=== PATIENT | female | born 1995 | race Caucasian/White ===

== ENCOUNTER 2023-08-03 10:33 | Emergency (ER) | payer OTHER, SELFPAY ==
[2023-08-03 10:51] VITALS: BP 137/87; PULSE 92; RESP 18; TEMP 36.7; O2SAT 96; BMI 39.5
--- NOTE | 2023-08-03 11:08 | CT_ITS ---
The [address] [address] Patient Name: PETER SHAW MRN: [id number] date: 1995 Sex: F Assigned Patient Location: ER Current Patient Location: ER Accession/Order Number: [id number] Exam Date: 08/03/2023 11:45 Report Date: 08/03/2023 12:31 At the request of: SILVER GUEVARA Procedure: CT facial bones w con EXAM: CT facial bones w con HISTORY: facial abscess COMPARISON: None. TECHNIQUE: Axial postcontrast CT imaging of the facial bones was performed with coronal and sagittal reformats. This CT exam was performed using one or more of the following dose reduction techniques: Automated exposure control, adjustment of the MA and/or kV according to patient size, or use of iterative reconstruction technique. FINDINGS: Soft tissues: There is extensive right facial inflammatory stranding extending from the right infraorbital soft tissues inferiorly to the level of the superior anterior neck with associated reticulation of overlying fat and thickening of the platysma. There is extensive inflammation overlying the right premaxillary soft tissues with questionable small area of phlegmon versus abscess seen along the inferior aspect of the maxillary sinus and anterior aspect of the maxilla without overt drainable fluid collection seen. This measures approximately 1.4 x 0.4 x 1.5 cm (transverse, AP, craniocaudal). There is asymmetric thickening with inflammation involving the levator labii on the right. There is asymmetric mild inflammation along the posterior lateral aspect of the right maxillary sinus wall. Orbits: Globes intact. No evidence for retroseptal extension of inflammation. No fractures or masses. Sinuses: Moderate mucosal thickening of the right maxillary sinus. No overt air-fluid level. Midface/nasal cavity: No fractures or masses. Maxilla/mandible: Multifocal periapical lucencies are present with loss of overlying buccal alveolar cortex along the right maxillary first bicuspid, right maxillary central incisor and left maxillary first bicuspid. Multiple dental caries are present involving the mandibular and maxillary teeth area No fractures or destructive lesions. Additional comments: Presumed reactive adenopathy is present involving the visualized right greater than left submandibular nodes and jugulodigastric lymph nodes. CT/CT facial bones w con IMPRESSION: 1. Extensive right facial and upper neck cellulitis which is more than typically seen likely relating to odontogenic inflammation although there is questionable area of subtle developing phlegmon without overt drainable abscess seen involving the right premaxillary soft tissues with multiple dental caries and periapical lucencies noted some of which demonstrate loss of overlying buccal alveolar cortex. Alternatively this could relate to inflammation from right maxillary sinus disease with inflammation of the premaxillary soft tissues as well as soft tissues adjacent to the lateral wall of the maxilla is noted. Invasive fungal sinusitis is not excluded. Inflammation does extend to involve the right infraorbital soft tissues. Continued attention on follow-up for resolution is recommended. 2. Associated right greater than left reactive adenopathy. Electronically authenticated by: ISABELLA BURGER Date: 08/03/2023 12:31
[2023-08-03 11:31] LABS: Basophils Absolute Auto 0.1 10^3/uL (0.0-0.1); Basophils Percent Auto 0.4 % (0.2-2.0); Eosinophils Absolute Auto 0.1 10^3/uL (0.0-0.7); Eosinophils Percent Auto 0.9 % (0.9-7.0); Hematocrit 38.9 % (36.0-48.0); Hemoglobin 11.7 g/dL (12.0-16.0); Immature Granulocytes Abs Auto 0.06 10^3/uL (0.00-0.03); Immature Granulocytes Pct Auto 0.5 % (0.0-0.5); Lymphocytes Percent Auto 14.9 % (20.5-60.0); Mean Corpuscular HGB Conc 30.1 g/dL (29.9-35.2); Mean Corpuscular Hemoglobin 26.2 pg (26.7-34.0); Mean Corpuscular Volume 87.2 fL (81.0-99.0); Mean Platelet Volume 10.1 fL (9.5-13.5); Monocytes Absolute Auto 1.5 10^3/uL (0.3-0.8); Monocytes Percent Auto 11.1 % (1.7-12.0); Neutrophils Absolute Auto 9.6 10^3/uL (1.4-6.5); Neutrophils Percent Auto 72.2 % (43.0-75.0); Platelet Count 343 10^3/uL (150-450); Red Blood Count 4.46 10^6/uL (4.20-5.40); Red Cell Distribution Width 15.1 % (11.0-15.0); White Blood Count 13.3 10^3/uL (4.0-11.0)
[2023-08-03 11:42] LABS: Lactate/Lactic Acid 1.1 mmol/L (0.4-2.0)
[2023-08-03 11:52] LABS: Alanine Aminotransferase 20 U/L (14-59); Albumin Globulin Ratio 0.8; Albumin Level 3.4 g/dL (3.4-5.0); Alkaline Phosphatase 89 U/L (46-116); Anion Gap 13.5; Aspartate Amino Transferase 14 U/L (15-37); Bilirubin Total 0.4 mg/dL (0.2-1.0); Calcium 9.1 mg/dL (8.5-10.1); Carbon Dioxide 24.4 mmol/L (21.0-32.0); Chloride 103 mmol/L (98-107); Estimated GFR (African America >60 (>=60); Estimated GFR (Non-African Ame >60 (>=60); Globulin 4.1 g/dL; Glucose 93 mg/dL (74-106); Potassium 3.9 mmol/L (3.5-5.1); Sodium 137 mmol/L (136-145); Total Protein 7.5 g/dL (6.4-8.2)
[2023-08-03] MEDS: LACTATED RINGER'S SOLUTION 1,000 ML 999 ML IV (11:56)
[2023-08-03] MEDS: CLINDAMYCIN PHOSPHATE/D5W 900 MG/50 ML PIGGYBACK 100 MG IV (11:57)
[2023-08-03] MEDS: BENZOCAINE 30 ML, lidocaine HCL 15 ML MM (12:37)
[2023-08-03] MEDS: KETOROLAC TROMETHAMINE 30 MG/ML VIAL 15 MG IVP (12:38)
[2023-08-03] MEDS: ONDANSETRON PF 4 MG/2 ML VIAL IV (12:38)
[2023-08-03] MEDS: MORPHINE SULFATE 4 MG/ML VIAL IV (12:38)
--- NOTE | 2023-08-03 13:16 | ED.GENADUL1 ---
HPI - General Adult General Chief complaint: Dental/Oral Stated complaint: TOOTH PAIN Time Seen by Provider: 08/03/23 11:02 Source: patient Mode of arrival: walk-in Limitations: no limitations History of Present Illness HPI narrative: Patient is a 28-year-old female who is presenting to the Emergency Room with chief complaint of right facial swelling, acute on chronic dental pain to the right upper molar. Patient has been having acute on chronic dental pain for years. Mother is at bedside. Patient stated that her right upper mmolar started hurting yesterday and she has some mild swelling yesterday. Patient has significant more swelling to the right cheek today. Patient has no fever or chills. No nausea or vomiting. Patient says that she has no money to get into a dentist and has no dentist that will take her insurance. However patient is smoking 1 pack of cigarettes a day. Patient denies any type of trauma. Patient does have right-sided fullness, swelling and pain. Patient has no difficulty breathing, no airway compromise. Mild swelling to the right side of her neck. No other acute complaints. . All systems are negative except as noted/marked. All systems reviewed and otherwise negative. . Nurses note and vital signs reviewed and patient is not hypoxic. General: The patient appears All distress secondary to pain and swelling to the right side of her cheek/face. Patient is resting uncomfortably on cart. Patient is not toxic, lethargic, or listless. Patiient is slightly agitated with questions during HPI when discussing no dental follow-up, using insurance, going to any dental clinic in pain cast, smoking habits, and the need for follow-up with a dentist in the past several years because she keeps coming to the Emergency Room and placed on antibiotics which is not appropriatee as well. Skin: Warm, dry, no pallor noted. There is no rash noted. No petechiae, purpura. No redness to the right cheek, right side of her neck or to the right side of her face. Head: Normocephalic, atraumatic, Moderate amount of swelling to the right cheek Eye: Normal conjunctiva, no drainage, EOMI. PERRL Ears, Nose, Mouth, and Throat: oral mucosa is moist. Nares patent. Mouth without vesicles. ENT: The oropharynx is normal. No pharyngeal erythema, uvular edema, tonsillar exudates, asymmetry or trismus. Uvula is midline. Mouth is normal to inspection With the exception of a pain on percussion of the tooth Right upper molar and evidence of Moderate dental caries. There is Moderate evidence of Right facial asymmetry In no abscess formation. Floor of the mouth is soft. No tenderness in the submental or submandibular space. No tongue elevation or deviation. The patient has no evidence of periapical abscess, gingivitis, ANUG or other acute pathology. Airway is patent. Neck: The neck demonstrates normal range of motion. No meningeals signs are present. No stridor. No masses or lymphandenopathy noted. Cardiovascular: Regular Rate and Rhythm, no murmur, gallop, rub Respiratory: Patient is in no distress, no accessory muscle use, lungs are clear to auscultation, no wheezing, rales or rhonchi Back: non-tender, no CVA tenderness bilaterally to percussion. No CT LS midline pain GI: soft, no tenderness to palpation, no masses appreciated. No rebound, guarding, or rigidity noted. No flank pain bilateral, No distention Musculoskeletal: Patient has full range of motion of all of the extremities, no motor, sensory, or focal neurological deficits Neurological: A&O x3, normal speech Psychiatric: Cooperative Related Data Previous Rx's Medication Instructions Recorded amoxicillin-potassium clavulanate 1 tab PO BID 10 days #20 tabs 08/03/23 1,000 mg-62.5 mg tablet,ext.rel 12hr (Augmentin XR) ondansetron 4 mg disintegrating 4 mg PO Q4H PRN nausea and 08/03/23 tablet vomiting 3 days #6 tabs Allergies Allergy/AdvReac Type Severity Reaction Status Date / Time No Known Drug Allergies Allergy Verified 08/03/23 10:56 [facility] Social History Smoking status: Current every day smoker Exam Constitutional Vital Signs, click to edit/add: Last Vital Signs Temp 98.0 F 08/03/23 10:51 Pulse 92 H 08/03/23 10:51 Resp 18 08/03/23 10:51 BP 137/87 08/03/23 10:51 Pulse Ox 96 08/03/23 10:51 O2 Del Method Room Air 08/03/23 10:51 Course Vital Signs Vital signs: Vital Signs Temperature 98.0 F 08/03/23 10:51 Pulse Rate 92 H 08/03/23 10:51 Respiratory Rate 18 08/03/23 10:51 Blood Pressure 137/87 08/03/23 10:51 Pulse Oximetry 96 08/03/23 10:51 Oxygen Delivery Method Room Air 08/03/23 10:51 Temperature 98.0 F 08/03/23 10:51 Pulse Rate 92 H 08/03/23 10:51 Respiratory Rate 18 08/03/23 10:51 Blood Pressure 137/87 08/03/23 10:51 Pulse Oximetry 96 08/03/23 10:51 Oxygen Delivery Method Room Air 08/03/23 10:51 Medical Decision Making MDM Narrative Medical decision making narrative: CT report shows moderate amount of soft tissue swelling to the right side of her face that early cellulitis. No gas formation. No signs of any large abscess. No airway compromise. A lot of education was done with patient at bedside along with her mother, and patient's mother agrees with my education. Patient understands that she can come up with money to follow up with a dentist, aspirin or other dental clinics, especially when she smoking 1 pack of cigarettes a day. Patient understands and was given a dental clinic referral sheet. Patient was also educated that she can follow up with dental schools in [place] for possibly free or affordable care from dental school training programs. Patient was placed on Augmentin but did not want to take the prescription for Augmentin because she has a prescription for clindamycin waiting for her at the pharmacy. Patient says that she's been on Augmentin clindamycin multiple times for dental issues. Patient was educated that she must follow-up with a dentist, I think continuing to be on multiple antibiotics and not seenn a dentist is doing her an extreme disservice ensure bodies building up time seen aantibiotics in the future will not help her at all. Patient is aware of this. Patient was given Toradol, morphine and Zofran for pain in the Emergency Room along with IV fluids. Mother drove home. Patient was given a dose of IV antibiotics. Patient understands that she is doing herself a huge disservice and not following up with a dentist for definitive treatment. No questions at discharge. Lab Data Labs: Lab Results 08/03/23 Range/Units 11:02 WBC 13.3 H (4.0-11.0) 10^3/uL RBC 4.46 (4.20-5.40) 10^6/uL Hgb 11.7 L (12.0-16.0) g/dL Hct 38.9 (36.0-48.0) % MCV 87.2 (81.0-99.0) fL MCH 26.2 L (26.7-34.0) pg MCHC 30.1 (29.9-35.2) g/dL RDW 15.1 H (11.0-15.0) % Plt Count 343 (150-450) 10^3/uL MPV 10.1 (9.5-13.5) fL Neut % (Auto) 72.2 (43.0-75.0) % Lymph % (Auto) 14.9 L (20.5-60.0) % [place] % (Auto) 11.1 (1.7-12.0) % Eos % (Auto) 0.9 (0.9-7.0) % Baso % (Auto) 0.4 (0.2-2.0) % Neut # (Auto) 9.6 H (1.4-6.5) 10^3/uL Lymph # (Auto) 2.0 (1.2-3.8) 10^3/uL [place] # (Auto) 1.5 H (0.3-0.8) 10^3/uL Eos # (Auto) 0.1 (0.0-0.7) 10^3/uL Baso # (Auto) 0.1 (0.0-0.1) 10^3/uL Abs Immat Gran (auto) 0.06 H (0.00-0.03) 10^3/uL Imm/Tot Granulo (auto) 0.5 (0.0-0.5) % Sodium 137 (136-145) mmol/L Potassium 3.9 (3.5-5.1) mmol/L Chloride 103 (98-107) mmol/L Carbon Dioxide 24.4 (21.0-32.0) mmol/L Anion Gap 13.5 BUN 6.0 L (7.0-18.0) mg/dL Creatinine 0.60 (0.55-1.02) mg/dL Est GFR ( Amer) >60 (>=60) Est GFR (Non-Af Amer) >60 (>=60) BUN/Creatinine Ratio 10.0 Glucose 93 (74-106) mg/dL Lactate 1.1 (0.4-2.0) mmol/L Calcium 9.1 (8.5-10.1) mg/dL Total Bilirubin 0.4 (0.2-1.0) mg/dL AST 14 L (15-37) U/L ALT 20 (14-59) U/L Alkaline Phosphatase 89 (46-116) U/L Total Protein 7.5 (6.4-8.2) g/dL Albumin 3.4 (3.4-5.0) g/dL Globulin 4.1 g/dL Albumin/Globulin Ratio 0.8 Discharge Plan Discharge Chief Complaint: Dental/Oral Clinical Impression: Atypical face pain, Dental caries, Toothache Patient Disposition: Home, Self-Care Time of Disposition Decision: 13:06 Condition: Fair Prescriptions / Home Meds: New ondansetron 4 mg tablet,disintegrating 4 mg PO Q4H PRN (Reason: nausea and vomiting) 3 Days Qty: 6 0RF amoxicillin-pot clavulanate [Augmentin XR] 1,000-62.5 mg tablet extended release 12 hr 1 tab PO BID 10 Days Qty: 20 0RF Instructions: Atypical Facial Pain (ED) Additional Instructions: The dental schools in [place] are all tied to dental clinics, including [facility], [facility] in [facility]. Dental clinic list has been provided for use as well. Nothing will improve until you see a dentist. Tobacco abuse education was given 2 as well. A copy of your CT report has been given to you, finish antibiotics and follow and establish a PCP as well. Use ice 20 minutes on, 20 minutes off, do not use heat. Stand Alone Forms: Portal Instructions Referrals: Physician,Non-Staff, MD [Primary Care Provider] - 1 week Discharge Date/Time: 08/03/23 13:37
== END 2023-08-03 13:37 | disposition home or self-care (01) ==
PROVIDERS: Emergency Provider Emergency Medicine
DX: K08.89 Other specified disorders of teeth and supporting structures (principal); K02.9 Dental caries, unspecified; G50.1 Atypical facial pain; F17.210 Nicotine dependence, cigarettes, uncomplicated
CPT/HCPCS: 36415; 70487; 80053; 83605; 85025; 87040; 96365; 96375; 99284; J0736; J1885; J2270; J2405; Q9967

== ENCOUNTER 2023-09-09 08:17 | Emergency (ER) | payer OTHER, SELFPAY ==
--- NOTE | 2023-09-09 08:25 | ED.GENADUL1 ---
HPI - General Adult General Chief complaint: Back Pain/Injury Stated complaint: BACK PAIN Time Seen by Provider: 09/09/23 08:24 History of Present Illness HPI narrative: Patient is a 28-year-old female who is presenting to the ER with chief complaint. Patient stated that she bent down to flower picker her child on Tuesday, 2 days ago, and patient has been having right lower back pain with radiation of pain to the right buttocks and down her right lateral thigh, evidence of sciatica. Patient has not had pain in the right side before, patient has pain in the left side. Patient has had an MRI in the past, stating that she has herniated disc, degeneration and loss of water weight from L4-L5. Patient has had spinal injections at [facility] with pain management in the past that did help. Patient has a PCP in [place]. Patient has no abdominal pain, nausea or vomiting. Patient is having dysuria, she has been having that for 4 to 5 days. During HPI, patient said while I am here, can I get STD check patient says that she was with a boy who cheated on her last week. Patient has no vaginal bleeding, odor, or discharge. Patient states that she has had her fallopian tubes removed, states that she is not . Patient's friend is at bedside. Patient told nurse Monik VILLELA and myself that patient just wants injection of Toradol, does not want to give a urine sample, does not want any other testing at this time because she needs to leave to go flower picker her kids. All systems are negative except as noted/marked. All systems reviewed and otherwise negative. Nurses note and vital signs reviewed and patient is not hypoxic. General: The patient appears well and in no apparent distress. Patient is resting comfortably on cart. Patient is not toxic, lethargic, or listless Skin: Warm, dry, no pallor noted. There is no rash noted. No petechiae, purpura. Head: Normocephalic, atraumatic Eye: Normal conjunctiva, no drainage, EOMI. PERRL Ears, Nose, Mouth, and Throat: oral mucosa is moist. Nares patent. Mouth without vesicles. Cardiovascular: Regular Rate and Rhythm, no murmur, gallop, rub Respiratory: Patient is in no distress, no accessory muscle use, lungs are clear to auscultation, no wheezing, rales or rhonchi Back: Patient has moderate tenderness to palpation to the right paralumbar soft tissue, no midline spinous process or transverse process tenderness to palpation over lumbar sacral spine, non-tender, no CVA tenderness bilaterally to percussion. No CT LS midline pain. Patient does have right paralumbar tenderness palpation from approximately L2-L5, no rash. GI: Obese, no tenderness to palpation, no masses appreciated. No rebound, guarding, or rigidity noted. No distention Musculoskeletal: Patient has full range of motion of all of the extremities, no motor, sensory, or focal neurological deficits. No motor or sensory deficits to bilateral lower extremities Neurological: A&O x4, normal speech Psychiatric: Cooperative Related Data Previous Rx's Medication Instructions Recorded amoxicillin-potassium clavulanate 1 tab PO BID 10 days #20 tabs 08/03/23 1,000 mg-62.5 mg tablet,ext.rel 12hr (Augmentin XR) ondansetron 4 mg disintegrating 4 mg PO Q4H PRN nausea and 08/03/23 tablet vomiting 3 days #6 tabs Allergies Allergy/AdvReac Type Severity Reaction Status Date / Time No Known Drug Allergies Allergy Verified 08/03/23 10:56 PFSH PFS Social History Smoking status: Current every day smoker Exam Constitutional Vital Signs, click to edit/add: Last Vital Signs Temp 98.1 F 09/09/23 08:27 Pulse 100 H 09/09/23 08:27 Resp 18 09/09/23 08:27 BP 148/96 H 09/09/23 08:27 Pulse Ox 98 09/09/23 08:27 O2 Del Method Room Air 09/09/23 08:27 Course Vital Signs Vital signs: Vital Signs Temperature 98.1 F 09/09/23 08:27 Pulse Rate 100 H 09/09/23 08:27 Respiratory Rate 18 09/09/23 08:27 Blood Pressure 148/96 H 09/09/23 08:27 Pulse Oximetry 98 09/09/23 08:27 Oxygen Delivery Method Room Air 09/09/23 08:27 Temperature 98.1 F 09/09/23 08:27 Pulse Rate 100 H 09/09/23 08:27 Respiratory Rate 18 09/09/23 08:27 Blood Pressure 148/96 H 09/09/23 08:27 Pulse Oximetry 98 09/09/23 08:27 Oxygen Delivery Method Room Air 09/09/23 08:27 Medical Decision Making MDM Narrative Medical decision making narrative: Patient does not wants injection with Toradol. Patient does not want to give a urine sample or urine culture. Patient only wants injection of Toradol, patient states she has been on steroids in the past, she is only had pain for 2 days, no acute indication for steroids. Patient has a PCP appointment next week with her PCP in [place]. Patient has to go flower picker her kids, she would like to be discharged and no additional testing. No signs of saddle anesthesia or cauda equina. Patient was educated on using ice and not heat. Patient is to follow-up with her pain management that she has seen in the past with [facility], she was also given information on physical therapy and pain management from the [facility] as well. Discharge Plan Discharge Chief Complaint: Back Pain/Injury Clinical Impression: Lumbar radiculopathy, Sciatica Patient Disposition: Home, Self-Care Condition: Fair Prescriptions / Home Meds: No Action ondansetron 4 mg tablet,disintegrating 4 mg PO Q4H PRN (Reason: nausea and vomiting) 3 Days Qty: 6 0RF amoxicillin-pot clavulanate [Augmentin XR] 1,000-62.5 mg tablet extended release 12 hr 1 tab PO BID 10 Days Qty: 20 0RF Instructions: Sciatica (ED), Lumbar Radiculopathy (ED), Piriformis Syndrome (ED), Lower Back Exercises (ED) Additional Instructions: Start using ice 20 minutes on, 20 minutes off. Start using sciatica and piriformis stretching exercises Do not use heat Follow-up with PCP Pain management and physical therapy services from the [facility] have been given to you as well. Stand Alone Forms: Portal Instructions Referrals: Physician,Non-Staff, MD [Primary Care Provider] - 1 week
[2023-09-09 08:27] VITALS: BP 148/96; PULSE 100; RESP 18; TEMP 36.7; O2SAT 98; BMI 49.2
--- OUTSIDE RECORDS SUMMARY | 2023-09-09 08:27 | XMS_ITS | CCD ---
Author Name Unknown Address [id number] [place] [address] Organization [facility] Care Team Providers Care Desk Maker Name Role Phone Tai NAVARRO, Sr Misbah Hernandez Primary Care Provider GAMA CALLE Attending Unavailable GAMA CALLE Admitting [facility] RODRIGUEZ Primary Care Unavailable Opal Cuevas CNP Attending Unavailable Brad OROPEZA, Christian Figueredo Referring Unava ilable Russell , [facility] Jesu Capps DO, Anand Antony Attending Unavaila codey Russell , [facility] Jesu Brannon PA-C, Ambar Saini Attending Unavailgina Salinas MD, Christian Figueredo [facility] Jesu serrano Russell , [facility] Jesu Cantu MD, Meeta Attending Unavailable MIGNON OVIEDO Attending Unavailable GIGI MALDONADO Primary Care Unavailable JEOL, GIGI Wallace Primary Care Unavailable JOELGIGI PARR Primary Care Unavailable ROSSANA GALLAGHER Attending Unavailable JOELGIGI PARR Primary Care Unavailable JOEL, GIGI Wallace Primary Care Unavailable GIGI MALDONADO Referring Unavailable Sebastian GARCIA~[id number] PREET Attending Unavailable GIGI MALDONADO Primary Care Unavailable IVÁN BOLTON Attending Unavailable GIGI MALDONADO Primary Care Unavailable JOEL, GIGI Wallace Primary Care Unavailable MISBAH GAMBLE SR Primary Care Unavailable RAMONA VIDALES Unavailable RAMONA VIDALES Attending Unavailable MARY CRAWLEY Attending Unavailable GIGI MALDONADO Primary Care Unavailable Allergies Allergy Classification Reported Allergen(s) Allergy Type Date of Onset Reaction(s) Facility (1 source) Cinnamon Preparation; Translations: [CINNAMON] Drug Allergy 04-23-2023 [facility] Medications Current Medications Medication Drug Class(es) Dates Sig (Normalized) Sig (Original) gabapentin 600 mg oral tablet (4 sources) Anti-epileptic Agent gabapentin (NEURONTIN) 600 MG tablet Take 800 mg by mouth 3 times daily. 0 Active Completed/Discontinued Medications Medication Drug Class(es) Dates Sig (Normalized) Sig (Original) acetaminophen 325 mg oral tablet (1 source) Start: 01-05-2021 End: 01-05-2021 acetaminophen (TYLENOL) tablet 650 mg dexamethasone phosphate 10 mg/ml injectable solution (1 source) Corticosteroid Start: 05-04-2022 End: 05-04-2022 dexamethasone (DECADRON) injection 10 mg 1 ml ketorolac tromethamine 30 mg/ml cartridge (1 source) Nonsteroidal Anti-inflammatory Drug, Cyclooxygenase Inhibitor Start: 05-04-2022 End: 05-04-2022 ketorolac (TORADOL) injection 30 mg penicillin v potassium 250 mg oral tablet (5 sources) Start: 01-05-2021 End: 01-05-2021 penicillin v potassium (VEETID) tablet 500 mg Start: 01-05-2021 take 1 tablet by david th four times daily penicillin v potassium (VEETID) 500 MG tablet Take 1 tablet by mouth 4 times daily 40 tablet 0 01/05/2021 Active Problems Active Problems Problem Classification Problem Date Documented Date Episodic/Chronic Administrative/social admission (1 source) Persons encountering health services in other specified circumstances; Translations: [Persons encountering health services in other specified circumstances] Onset: 05-10-2023 Episodic Diseases of mouth; excluding dental (1 source) Sialoadenitis, unspecified; Translations: [Sialoadenitis, unspecified] Onset: 06-27-2023 Episodic Disorders of teeth and jaw (9 sources) Dental abscess; Translations: [Periapical abscess without sinus] Onset: 06-08-2023 Episodic Headache; including migraine (1 source) Headache; including migraine; Translations: [Headache, unspecified] Onset: 06-26-2023 Other screening for suspected conditions (not mental disorders or infectious disease) (1 source) Encounter for screening for lipoid disorders; Translations: [Encounter for screening for lipoid disorders] Onset: 05-10-2023 Episodic Other skin disorders (1 source) Facial swelling Onset: 08-02-2023 Episodic Residual codes; unclassified (4 sources) Procedure and treatment not carried out due to patient leaving prior to being seen by health care provider; Translations: [PROC AND TX NOT CARRIED OUT PT LEAVE] Onset: 10-08-2022 Episodic Spondylosis; intervertebral disc disorders; other back problems (1 source) Degeneration of lumbar intervertebral disc; Translations: [Other intervertebral disc degeneration, lumbar region] Chronic Past or Other Problems Problem Classification Problem Date Documented Da te Episodic/Chronic Spondylosis; intervertebral disc disorders; other back problems (3 sources) Chronic low back pain; Translations: [Acute exacerbation of chronic low back pain] Onset: 02-17-2023 Episodic Results Test Name Value Interpretation Reference Range Facility CBC with Diffon 06-27-2023 Abs. Basophil 0.06 k/uL Normal 0.00-0.20 [facility] Comment on above: Performed By: #### C LIZZETTE, CP #### [facility] [address] [place] [address] [address] [place] [id number] [employer] Specialist: Jarod Bernardo MD Abs.Imm.Granulocyte 0.03 k/uL Normal 0.00-0.30 [facility] Comment on above: Performed By: #### C LIZZETTE, CP #### [address] [place] [id number] [employer]ist: Jarod Bernardo MD Abs.Neutrophil (Seg) 6.24 k/uL Normal 1.50-8.10 [facility] Comment on above: Performed By: #### C DP, CP #### [address] [place], [facility] [employer]ist: Jarod Bernardo MD Basophils/100 WBC (Bld) 1 % Normal 0-2 [facility] Comment on above: Performed By: #### C DP, CP #### [address] [place] [id number] [employer]ist: Jarod Bernardo MD Eosinophils (Bld) [#/Vol] 0.10 10*3/uL Normal 0.00-0.44 [facility] Comment on above: Performed By: #### C DP, CP #### [facility] [address] [place], [facility] [employer]ist: Jarod Bernardo MD Eosinophils/100 WBC (Bld) 1 % Normal 1-4 [facility] Comment on above: Performed By: #### C DP, CP #### [address] [place], [facility] [employer]ist: Jarod Bernardo MD Erythrocyte distribution width (RBC) [Ratio] 15.7 % High 11.8-14.4 [facility] Comment on above: Performed By: #### C DP, CP #### [address] [place] [id number] [employer]ist: Jarod Bernardo MD Hematocrit (Bld) [Volume fraction] 38.2 % Normal 36.3-47.1 [facility] Comment on above: Performed By: #### C DP, CP #### [address] [place], [facility] [employer]ist: Jarod Bernardo MD Hemoglobin (Bld) [Mass/Vol] 11.8 g/dL Low 11.9-15.1 [facility] Comment on above: Performed By: #### C DP, CP #### [address] [place], [place] [address] [employer]ist: Jarod Bernardo MD Immature granulocytes/100 WBC (Bld) 0 % Normal 0 [facility] Comment on above: Performed By: #### C DP, CP #### [address] [place] [id number] [employer]ist: Jarod Bernardo MD Lymphocytes (Bld) [#/Vol] 1.20 10*3/uL Normal 1.10-3.70 [facility] Comment on above: Performed By: #### C DP, CP #### [address] [place] [address] [place], [place] [phone] [employer]ist: Jarod Bernardo MD Lymphocytes/100 WBC (Bld) 14 % Low 24-43 [facility] Comment on above: Performed By: #### C DP, CP #### [facility] [address] [place], [facility] [employer]ist: Jarod Bernardo MD MCH (RBC) [Entitic mass] 26.2 pg Normal 25.2-33.5 [facility] Comment on above: Performed By: #### C DP, CP #### [address] [place] [address] [employer]ist: Jarod Bernardo MD MCHC (RBC) [Mass/Vol] 30.9 g/dL Normal 28.4-34.8 [facility] Comment on above: Performed By: #### C DP, CP #### [address] [place], [facility] [employer]ist: Jarod Bernardo MD MCV (RBC) [Entitic vol] 84.9 fL Normal 82.6-102.9 [facility] Comment on above: Performed By: #### C DP, CP #### [address] [place], [facility] [employer] Specialist: Jarod Bernardo MD Monocytes (Bld) [#/Vol] 0.70 10*3/uL Normal 0.10-1.20 [facility] Comment on above: Performed By: #### C DP, CP #### [facility] [address] [place], [facility] [employer]ist: Jarod Bernardo MD Monocytes/100 WBC (Bld) 8 % Normal 3-12 [facility] Comment on above: Performed By: #### C DP, CP #### [facility] [address] [place], [facility] [employer]ist: Jarod Bernardo MD Neutrophil (Seg) 76 % High 36-[address] [facility] Comment on above: Performed By: #### C DP, CP #### [facility] [address] [place], [place] [phone] [employer]ist: Jarod Bernardo MD NRBC Automated 0.0 per 100 WBC Normal 0.0 [facility] Comment on above: Performed By: #### C DP, CP #### [address] [place] [address] [employer]ist: Jarod Bernardo MD Platelet mean volume (Bld) [Entitic vol] 9.7 fL Normal 8.1-13.5 [facility] Comment on above: Performed By: #### C DP, CP #### [address] [place], [place] [phone] [employer]ist: Jarod Bernardo MD Platelets (Bld) [#/Vol] 295 10*3/uL Normal 138-453 [facility] Comment on above: Performed By: #### C DP, CP #### [address] [place], [place] [phone] [employer]ist: Jarod Bernardo MD RBC (Bld) [#/Vol] 4.50 10*6/uL Normal 3.95-5.11 [facility] Comment on above: Performed By: #### C DP, CP #### [address] [place], [place] [phone] [employer]ist: Jarod Bernardo MD WBC (Bld) [#/Vol] 8.3 10*3/uL Normal 3.5-11.3 [facility] Comment on above: Performed By: #### C DP, CP #### [address] [place] [address] [employer]ist: Jarod Bernardo MD CT SOFT TISSUE NECK W CONTRA STojose 06-27-2023 CT SOFT TISSUE NECK W CONTRAST EXAMINATION: CT OF THE NECK SOFT TISSUE WITH CONTRAST 06/27/2023 TECHNIQUE: CT of the neck was performed with the administration of intravenous contrast. Multiplanar reformatted images are provided for review. Automated exposure control, iterative reconstruction, and/or weight based adjustment of the mA/kV was utilized to reduce the radiation dose to as low as reasonably achievable. COMPARISON: None. HISTORY: ORDERING SYSTEM PROVIDED HISTORY: dental asbcess R mandible, with sublingal edema, and induration submentally TECHNOLOGIST PROVIDED HISTORY: dental asbcess R mandible, with sublingal edema, and induration submentally Decision Support Exception - unselect if not a suspected or confirmed emergency medical condition->Emergency Medical Condition (MA) Initial evaluation. FINDINGS: PHARYNX/LARYNX: The visualized upper aerodigestive tract appears grossly symmetric. No discrete mass or abscess identified. The epiglottis appears normal. SALIVARY GLANDS/THYROID: Mild inflammatory changes are seen in the region of the right parotid tail. Otherwise, the parotid, submandibular and thyroid glands appear unremarkable. LYMPH NODES: Borderline prominent right submandibular lymph node is seen presumably reactive in nature. Otherwise, no evidence of cervical lymphadenopathy by size criteria. SOFT TISSUES: Inflammatory changes are seen superficial to the right mandibular body. This is possibly associated with a dental miguel a involving the right 1st mandibular molar tooth with a tiny lucency surrounding the root. There is inflammatory change extending into the right submandibular space and possibly the right sublingual space (axial series 2, image 54; coronal series 601, image 43). However, no discrete/drainable fluid collection is seen. BRAIN/ORBITS/SINUSES : The visualized portion of the intracranial contents appear unremarkable. The visualized portion of the orbits, paranasal sinuses and mastoid air cells demonstrate no acute abnormality. LUNG APICES/SUPERIOR MEDIASTINUM: No focal consolidation within the visualized lung apices. No acute abnormality within the visualized superior mediastinum. BONES: No aggressive appearing lytic or blastic bony lesion. IMPRESSION: 1. Inflammatory changes superficial to the right mandibular body possibly associated with a dental miguel a involving the right 1st mandibular molar tooth with the tiny lucency surrounding the root. 2. Inflammatory changes are seen extending along the right parotid tail and right submandibular space with possible extension into the right sublingual space. 3. No discrete/drainable fluid collection is seen. 4. Presumably reactive right submandibular lymph node. Interpreted by: Miah Boo MD Signed by: Miah Boo MD 06/27/23 Final result Normal [facility] Comp Metabolic Profon 2022 Albumin [Mass/Vol] 4.0 g/dL Normal 3.5-5.2 [facility] Comment on above: Performed By: #### C DP, CP #### [facility] [address] [place], [place] [id number] [employer]ist: Jarod Bernardo MD Albumin/Glob Ratio 1.6 Normal 1.0-2.5 [facility] Comment on above: Performed By: #### C DP, CP #### [address] [place], [place] [phone] [employer]ist: Jarod Bernardo MD Alkaline Phos 93 U/L Normal 35-104 [facility] Comment on above: Performed By: #### C DP, CP #### [facility] [address] [place] [address] [place] [address] [employer]ist: Jarod Bernardo MD ALT [Catalytic activity/Vol] 23 U/L Normal 5-33 [facility] Comment on above: Performed By: #### C DP, CP #### [address] [place], [place] [phone] [employer]ist: Jarod Bernardo MD Anion gap [Moles/Vol] 14 mmol/L Normal 9-17 [facility] Comment on above: Performed By: #### C DP, CP #### [facility] [address] [place] [address] Dr. [place], [place] [phone] [employer]ist: Jarod Bernardo MD AST [Catalytic activity/Vol] 20 U/L Normal <32 [facility] Comment on above: Performed By: #### C DP, CP #### [facility] [address] [place], [place] [phone] [employer]ist: aJrod Bernardo MD Bilirubin [Mass/Vol] 0.3 mg/dL Normal 0.3-1.2 [facility] Comment on above: Performed By: #### C DP, CP #### [facility] [address] [place], [place] 9373783 [employer]ist: Jarod Bernardo MD BUN/CRE Ratio 15 Normal 9-20 [facility] Comment on above: Performed By: #### C DP, CP #### [facility] [address] [place], [place] 5036183 [employer]ist: Jarod Bernardo MD Calcium [Mass/Vol] 8.9 mg/dL Normal 8.6-10.4 [facility] Comment on above: Performed By: #### C DP, CP #### [facility] [address] [place], [place] [phone] [employer]ist: Jarod Bernardo MD Chloride [Moles/Vol] 102 mmol/L Normal 98-107 [facility] Comment on above: Performed By: #### C DP, CP #### [facility] [address] [place], [place] [address]1783 [employer]ist: Jarod Bernardo MD CO2 [Moles/Vol] 21 mmol/L Normal 20-31 [facility] Comment on above: Performed By: #### C DP, CP #### [facility] [address] [place] [address] [employer]ist: Jarod Bernardo MD Creatinine [Mass/Vol] 0.6 mg/dL Normal 0.5-0.9 [facility] Comment on above: Performed By: #### C DP, CP #### [facility] [address] [place] [address] [employer]ist: Jarod Bernardo MD GFR/1.73 sq M.predicted among non-blacks MDRD (S/P/Bld) [Vol rate/Area] mL/min/{1.73_m2} Normal >60 [facility] Comment on above: Result Comment: These results are not intended for use in patients <18 years of age. eGFR results are calculated without a race factor using the 2020 CKD-EPI equation. Careful clinical correlation is recommended, particularly when comparing to results calculated using previous equations. The CKD-EPI equation is less accurate in patients with extremes of muscle mass, extra-renal metabolism of creatine, excessive creatine ingestion, or following therapy that affects renal tubular secretion. Performed By: #### C DP, CP #### [facility] [address] [place] [address] Dr[place], [place] [phone] [employer]ist: Jarod Bernardo MD Glucose [Mass/Vol] 107 mg/dL High 70-99 [facility] Comment on above: Performed By: #### C DP, CP #### [address] [place], [place] [phone] [employer]ist: Jarod Bernardo MD Potassium [Moles/Vol] 3.6 mmol/L Low 3.7-5.3 [facility] Comment on above: Performed By: #### C DP, CP #### [address] [place], [place] [phone] [employer]ist: Jarod Bernardo MD Protein [Mass/Vol] 6.5 g/dL Normal 6.4-8.3 [facility] Comment on above: Performed By: #### C DP, CP #### [address] [place], [place] [phone] [employer]ist: Jarod Bernardo MD Sodium [Moles/Vol] 137 mmol/L Normal 135-144 [facility] Comment on above: Performed By: #### C DP, CP #### [facility] [address] [place] [address] [place] [address] [employer]ist: Jarod Bernardo MD Urea nitrogen [Mass/Vol] 9 mg/dL Normal 6-20 [facility] Comment on above: Performed By: #### C DP, CP #### [facility] [address] [place] [address] Dr[place], [place] [phone] [employer]ist: Jarod Bernardo MD CBC with Diffon 05-10-2023 Abs. Basophil 0.04 k/uL Normal 0.00-0.20 [facility] Comment on above: Performed By: #### C DP, CMPF #### [facility] [address] [place] [address] Dr[place], [place] [phone] [employer]ist: Jarod Bernardo MD Abs.Imm.Granulocyte 0.06 k/uL Normal 0.00-0.30 [facility] Comment on above: Performed By: #### C DP, CMPF #### [address] [place], [place] [phone] [employer]ist: Jarod Bernardo MD Abs.Neutrophil (Seg) 5.10 k/uL Normal 1.50-8.10 [facility] Comment on above: Performed By: #### C DP, CMPF #### [facility] [address] [place] [address] [place] [address] [employer]ist: Jarod Bernardo MD Basophils/100 WBC (Bld) 1 % Normal 0-2 [facility] Comment on above: Performed By: #### C DP, CMPF #### [address] [place] [address] [employer]ist: Jarod Bernardo MD Eosinophils (Bld) [#/Vol] 0.12 10*3/uL Normal 0.00-0.44 [facility] Comment on above: Performed By: #### C DP, CMPF #### [facility] [address] [place] [address] [place] [address] [employer]ist: Jarod Bernardo MD Eosinophils/100 WBC (Bld) 2 % Normal 1-4 [facility] Comment on above: Performed By: #### C DP, CMPF #### [facility] [address] [place] [address] [place] [address] [employer]ist: Jarod Bernardo MD Erythrocyte distribution width (RBC) [Ratio] 15.4 % High 11.8-14.4 [facility] Comment on above: Performed By: #### C DP, CMPF #### [facility] [address] [place], [place] [phone] [employer]ist: Jarod Bernardo MD Hematocrit (Bld) [Volume fraction] 37.3 % Normal 36.3-47.1 [facility] Comment on above: Performed By: #### C DP, CMPF #### [facility] [address] [place], [place] [phone] [employer] Specialist: Jarod Brenardo MD Hemoglobin (Bld) [Mass/Vol] 11.3 g/dL Low 11.9-15.1 [facility] Comment on above: Performed By: #### C DP, CMPF #### [address] [place] [address] [employer] Specialist: Jarod Bernardo MD Immature granulocytes/100 WBC (Bld) 1 % High 0 [facility] Comment on above: Performed By: #### C DP, CMPF #### [address] [place], [facility] [employer] Specialist: Jarod Bernardo MD Lymphocytes (Bld) [#/Vol] 2.00 10*3/uL Normal 1.10-3.70 [facility] Comment on above: Performed By: #### C DP, CMPF #### [facility] [address] [place] [address] Dr[place], [facility] [employer] Specialist: Jarod Bernardo MD Lymphocytes/100 WBC (Bld) 25 % Normal 24-43 [facility] Comment on above: Performed By: #### C DP, CMPF #### [facility] [address] [place] [address] [employer] Specialist: Jarod Bernardo MD MCH (RBC) [Entitic mass] 26.3 pg Normal 25.2-33.5 [facility] Comment on above: Performed By: #### C DP, CMPF #### [facility] [address] [place], [place] [phone] [employer] Specialist: Jarod Bernardo MD MCHC (RBC) [Mass/Vol] 30.3 g/dL Normal 28.4-34.8 [facility] Comment on above: Performed By: #### C DP, CMPF #### [facility] [address] [place], [facility] [employer] Specialist: Jarod Bernardo MD MCV (RBC) [Entitic vol] 86.9 fL Normal 82.6-102.9 [facility] Comment on above: Performed By: #### C DP, CMPF #### [address] [place] [id number] [employer] Specialist: Jarod Bernardo MD Monocytes (Bld) [#/Vol] 0.55 10*3/uL Normal 0.10-1.20 [facility] Comment on above: Performed By: #### C DP, CMPF #### [address] [place], [facility] [employer] Specialist: Jarod Bernardo MD Monocytes/100 WBC (Bld) 7 % Normal 3-12 [facility] Comment on above: Performed By: #### C DP, CMPF #### [address] [place], [place] [address] [employer] Specialist: Jardo Bernardo MD Neutrophil (Seg) 64 % Normal 36-[address] [facility] Comment on above: Performed By: #### C DP, CMPF #### [facility] [address] [place] [id number] [employer]ist: Jarod Bernardo MD NRBC Automated 0.0 per 100 WBC Normal 0.0 [facility] Comment on above: Performed By: #### C DP, CMPF #### [facility] [address] [place], [facility] [employer] Specialist: Jarod Bernardo MD Platelet mean volume (Bld) [Entitic vol] 9.3 fL Normal 8.1-13.5 [facility] Comment on above: Performed By: #### C DP, CMPF #### [facility] [address] [place] [address] [employer]ist: Jarod Bernardo MD Platelets (Bld) [#/Vol] 395 10*3/uL Normal 138-453 [facility] Comment on above: Performed By: #### C DP, CMPF #### [facility] [address] [place] [address] [employer] Specialist: Jarod Bernardo MD RBC (Bld) [#/Vol] 4.29 10*6/uL Normal 3.95-5.11 [facility] Comment on above: Performed By: #### C DP, CMPF #### [address] [place] [address] [employer] Specialist: Jarod Bernardo MD WBC (Bld) [#/Vol] 7.9 10*3/uL Normal 3.5-11.3 [facility] Comment on above: Performed By: #### C DP, CMPF #### [address] [place] [address] [employer] Specialist: Jarod Bernardo MD Comp Metabol,Fastingon 05-10 Albumin [Mass/Vol] 4.2 g/dL Normal 3.5-5.2 [facility] Comment on above: Performed By: #### C DP, CMPF #### [address] [place] [address] [employer]ist: Jarod Bernardo MD Albumin/Glob Ratio 1.4 Normal 1.0-2.5 [facility] Comment on above: Performed By: #### C DP, CMPF #### [address] [place] [address] [employer]ist: Jarod Bernardo MD Alkaline Phos 69 U/L Normal 35-104 [facility] Comment on above: Performed By: #### C DP, CMPF #### [facility] [address] [place] [address] [employer]ist: Jarod Bernardo MD ALT [Catalytic activity/Vol] 18 U/L Normal 5-33 [facility] Comment on above: Performed By: #### C DP, CMPF #### [facility] [address] [place], [place] [id number] [employer]ist: Jarod Bernardo MD Anion gap [Moles/Vol] 10 mmol/L Normal 9-17 [facility] Comment on above: Performed By: #### C DP, CMPF #### [facility] [address] [place], [place] [id number] [employer]ist: Jarod Bernardo MD AST [Catalytic activity/Vol] 16 U/L Normal <32 [facility] Comment on above: Performed By: #### C DP, CMPF #### [facility] [address] [place], [place] [id number] [employer]ist: Jarod Bernardo MD Bilirubin [Mass/Vol] 0.4 mg/dL Normal 0.3-1.2 [facility] Comment on above: Performed By: #### C DP, CMPF #### [facility] [address] [place], [place] [id number] [employer]ist: Jarod Bernardo MD BUN/CRE Ratio 16 Normal 9-20 [facility] Comment on above: Performed By: #### C DP, CMPF #### [facility] [address] [place] [address] [employer]ist: Jarod Bernardo MD Calcium [Mass/Vol] 9.0 mg/dL Normal 8.6-10.4 [facility] Comment on above: Performed By: #### C DP, CMPF #### [facility] [address] [place] [address] [employer]ist: Jarod Bernardo MD Chloride [Moles/Vol] 106 mmol/L Normal 98-107 [facility] Comment on above: Performed By: #### C DP, CMPF #### [facility] [address] [place] [address] [employer]ist: Jarod Bernardo MD CO2 [Moles/Vol] 23 mmol/L Normal 20-31 [facility] Comment on above: Performed By: #### C DP, CMPF #### [facility] [address] [place] [address] [employer]ist: Jarod Bernardo MD Creatinine [Mass/Vol] 0.5 mg/dL Normal 0.5-0.9 [facility] Comment on above: Performed By: #### C DP, CMPF #### [facility] [address] [place] [address] [employer]ist: Jarod Bernardo MD GFR/1.73 sq M.predicted among non-blacks MDRD (S/P/Bld) [Vol rate/Area] mL/min/{1.73_m2} Normal >60 [facility] Comment on above: Result Comment: These results are not intended for use in patients <18 years of age. eGFR results are calculated without a race factor using the 2020 CKD-EPI equation. Careful clinical correlation is recommended, particularly when comparing to results calculated using previous equations. The CKD-EPI equation is less accurate in patients with extremes of muscle mass, extra-renal metabolism of creatine, excessive creatine ingestion, or following therapy that affects renal tubular secretion. Performed By: #### C DP, CMPF #### [facility] [address] [place] [address] [employer]ist: Jarod Bernardo MD Glucose [Mass/Vol] 99 mg/dL Normal 70-99 [facility] Comment on above: Performed By: #### C DP, CMPF #### [facility] [address] [place], [place] [id number] [employer]ist: Jarod Bernardo MD Potassium [Moles/Vol] 4.1 mmol/L Normal 3.7-5.3 [facility] Comment on above: Performed By: #### C DP, CMPF #### [facility] [address] [place], [place] [id number] [employer]ist: Jarod Bernardo MD Protein [Mass/Vol] 7.2 g/dL Normal 6.4-8.3 [facility] Comment on above: Performed By: #### C DP, CMPF #### [facility] [address] [place], [place] [id number] [employer]ist: Jarod Bernardo MD Sodium [Moles/Vol] 139 mmol/L Normal 135-144 [facility] Comment on above: Performed By: #### C DP, CMPF #### [facility] [address] [place] [address] [address], [place] [id number] [employer]ist: Jarod Bernardo MD Urea nitrogen [Mass/Vol] 8 mg/dL Normal 6-20 [facility] Comment on above: Performed By: #### C DP, CMPF #### [facility] [address] [place] [address] [address], [place] [id number] [employer]ist: Jarod Bernardo MD Lipid Profileon 05-10-2023 Cholesterol [Mass/Vol] 225 mg/dL High 0-199 [facility] Comment on above: Result Comment: Cholesterol Guidelines: <200 Desirable 200-240 Borderline >240 Undesirable Performed By: #### L IPR #### [facility] [address] [place], [place] [id number] [employer]ist: Italo English MD Cholesterol in HDL [Mass/Vol] 56 mg/dL Normal >40 [facility] Comment on above: Result Comment: HDL Guidelines: <40 Undesirable 40-59 Borderline >59 Desirable Performed By: #### L IPR #### [place] [id number] [place] [address] [employer]ist: Italo English MD Cholesterol in LDL [Mass/Vol] 137 mg/dL High 0-100 [facility] Comment on above: Result Comment: LDL Guidelines: <100 Desirable 100-129 Near to/above Desirable 130-159 Borderline >159 Undesirable Direct (measured) LDL and calculated LDL are not interchangeable tests. Performed By: #### L IPR #### [address] [address] [employer]ist: Italo English MD Cholesterol in VLDL [Mass/Vol] 33 mg/dL Normal [facility] Comment on above: Performed By: #### L IPR #### [address] [address] [employer]ist: Italo English MD Cholesterol.total/Chol esterol in HDL [Mass ratio] 4.0 {ratio} Normal [facility] Comment on above: Performed By: #### L IPR #### [address] [address] [employer]ist: Italo English MD Triglyceride [Mass/Vol] 163 mg/dL High 0-149 [facility] Comment on above: Result Comment: Triglyceride Guidelines: <150 Desirable 150-199 Borderline 200-499 High >499 Very high Based on AHA Guidelines for fasting triglyceride, May 2012. Performed By: #### L IPR #### [address] [address] [employer]ist: Italo English MD .eGFRon 04-17-2023 GFR/1.73 sq M.predicted MDRD (S/P/Bld) [Vol rate/Area] mL/min/{1.73_m2} Normal >=60 [facility] Comment on above: Order Comment: Order added by Discern rule Result Comment: [facility] have implemented the eGFR calculation approach that does not have a coefficient for race and that conforms to the NKF-ASN Task Force Recommendations. Stages of Chronic Kidney Disease GFR Stage 3a Mild to moderate loss of kidney function 59 to 45 Stage 3b Moderate to severe loss of kidney function 44 to 33 Stage 4 Severe loss of kidney function 29 to 15 Stage 5 Kidney failure Less than 15 GFR calculated using the CKD-Epi Creatinine Equation (2020): eGFR = 142 X min(SCr/?, 1)? X max(SCr /?, 1)-1.200 X 0.9938Age X 1.012 [if female] Abbreviations/Units: eGFR (estimated glomerular filtration rate) = mL/min/1.73 m2 SCr (standardized serum creatinine) = mg/dL ? = 0.7 (females) or 0.9 (males) ? = -0.241 (females) or -0.302 (males) min = indicates the minimum of SCr/? or 1 max = indicates the maximum of SCr/? or 1 Age = years Performed By: #### . Automated Diff #### [address] [address] AMI Initon 04-17-2023 Initial Myoglobin 20.5 ng/mL Normal 14.3-65.8 [facility] Comment on above: Performed By: #### A MI1 ####[address] [address] Initial Troponin <0.03 Normal 0.00-0.03 [facility] Comment on above: Result Comment: An i ncreased Troponin-I value, in the absence of myocardial ischemia, may indicate other etiologies of cardiac damage. Performed By: #### A MI1 ####[address] [address] Basic Metabolic Profileon Creatinine [Mass/Vol] 0.75 mg/dL Normal 0.44-1.[address] [facility] Comment on above: Performed By: #### A MI2 #### [address] [address] Urea nitrogen [Mass/Vol] 7 mg/dL Low 8-26 [facility] Comment on above: Performed By: #### A MI2 #### [address] [address] Urea nitrogen/Creatinine [Mass ratio] 9.3 mg/mg Low 10.0-20.0 [facility] Comment on above: Performed By: #### A MI2 #### [address] [address] Anion gap [Moles/Vol] 12 mmol/L Normal 7-[address] [facility] Comment on above: Performed By: #### A MI2 #### [address] [address] Calcium [Mass/Vol] 9.4 mg/dL Normal 8.5-10.3 [facility] Comment on above: Performed By: #### A MI2 #### [address] [address] Chloride [Moles/Vol] 109 mmol/L Normal 98-110 [facility] Comment on above: Performed By: #### A MI2 #### [address] [address] CO2 [Moles/Vol] 21 mmol/L Low 22-32 [facility] Comment on above: Performed By: #### A MI2 #### [address] [address] Glucose [Mass/Vol] 106 mg/dL High 70-99 [facility] Comment on above: Performed By: #### A MI2 #### [address] [address] Potassium [Moles/Vol] 3.7 mmol/L Normal 3.4-4.[address] [facility] Comment on above: Performed By: #### A MI2 #### [address] [address] Sodium [Moles/Vol] 138 mmol/L Normal 133-142 [facility] Comment on above: Performed By: #### A MI2 #### [address] [address] CBC w/ Diffon 04-17-2023 Erythrocyte distribution width (RBC) [Ratio] 16.1 % High 11.6-14.8 [facility] Comment on above: Performed By: #### . Automated Diff #### [address] [address] Hematocrit (Bld) [Volume fraction] 39.7 % Normal 36.0-46.0 [facility] Comment on above: Performed By: #### . Automated Diff #### [place] [id number] Hemoglobin (Bld) [Mass/Vol] 13.0 g/dL Normal 12.0-16.0 [facility] Comment on above: Performed By: #### . Automated Diff #### [place] [id number] MCH (RBC) [Entitic mass] 26.9 pg Low 27.0-35.0 [facility] Comment on above: Performed By: #### . Automated Diff #### [place] [id number] MCHC 32.8 % Normal 31.0-37.0 [facility] Comment on above: Performed By: #### . Automated Diff #### [place] [id number] MCV (RBC) [Entitic vol] 82.3 fL Normal 80.0-100.0 [facility] Comment on above: Performed By: #### . Automated Diff #### [place] [id number] Platelet 357 x10*3/mcL Normal 150-450 [facility] Comment on above: Performed By: #### . Automated Diff #### [address] [address] Platelet mean volume (Bld) [Entitic vol] 8.2 fL Normal 6.7-10.6 [facility] Comment on above: Performed By: #### . Automated Diff #### [address] [address] RBC 4.83 x10*6/mcL Normal 3.80-5.20 [facility] Comment on above: Performed By: #### . Automated Diff #### [address] [place] [address] WBC 11.7 x10*3/mcL High 4.5-11.0 [facility] Comment on above: Performed By: #### . Automated Diff #### [address] [address] COV19 Rapidon 04-17-2023 LAB ONLY Result Called? No Normal [facility] Comment on above: Performed By: #### C [id number] #### [address] [address] Reason for Rapid Test COVID Exposure Normal [facility] Comment on above: Performed By: #### C [id number] #### [place] [id number] SARS-CoV-2 (COVID-19) RNA OLEGARIO+probe Ql (Unsp spec) Negative Normal Negative [facility] Comment on above: Result Comment: The 2019 novel coronavirus SARS-CoV-2 target nucleic acids are not detected. This test is for the detection of SARS-CoV-2 RNA. Positive results are indicative of active infection with SARS-CoV-2. Positive results do not rule out bacterial infection or co-infection with other viruses. Negative results should be treated as presumptive and, if inconsistent with clinical signs and symptoms or necessary for patient management, should be tested with an alternative molecular assay.Negative results do not preclude SARS-CoV-2 infection and should not be used as the sole basis for treatment or other patient management decisions. Clinical correlation with patient history and other diagnostic information is necessary to determine patient infection status. ADDITIONAL INFORMATION: Testing was performed using the ID NOW COVID-19 test by [employer], which has received Emergency Use Authorization (EUA) by the U.S. Food and Drug Administration. The [employer] ID NOW COVID-19 test performs best when patients are tested within the first 7 days of symptom onset. Results should be interpreted with caution for asymptomatic patients or those tested outside the 7 day target. Refer to CDC guidelines for further testing algorithms. Fact sheets for this Emergency Use Authorization (EUA) assay can be found at the following links: Fact Sheet for HealthCare Providers: https://www.fda.gov/media/909668/download Fact Sheet for Patients: https://www.[facility].gov/media/551815/download Performed By: #### C [id number] #### [address] [address] D-Dimeron 04-17-2023 D-Dimer 0.27 mg/L feu Normal 0.00-0.49 [facility] Comment on above: Result Comment: Resu lts of the D-Dimer test should always be interpreted in conjunction with the patient's medical history, clinical presentation, and other findings. Results <0.5 mg/L are considered NEGATIVE for VTE. Results >= 0.5 mg/L require further clinical evaluation. Levels of triglyceride up to 600 mg/dl do not interfere with this D-Dimer assay. Performed By: #### D GAYLA ####[address] [address] Diff Autoon 04-17-2023 Baso Absolute 0.1 x10*3/mcL Normal 0.0-0.2 [facility] Comment on above: Performed By: #### . Automated Diff #### [address] [address] Basophils/100 WBC (Bld) 1.0 % Normal 0.0-1.5 [facility] Comment on above: Performed By: #### . Automated Diff #### [address] [address] Eos Absolute 0.1 x10*3/mcL Normal 0.0-0.4 [facility] Comment on above: Performed By: #### . Automated Diff #### [address] [address] Eosinophils/100 WBC (Bld) 1.0 % Normal 0.0-5.4 [facility] Comment on above: Performed By: #### . Automated Diff #### [address] [address] Lymph Absolute 2.0 x10*3/mcL Normal 1.0-4.8 [facility] Comment on above: Performed By: #### . Automated Diff #### [address] [address] Lymphocytes/100 WBC (Bld) 17.5 % Low 27.2-40.8 [facility] Comment on above: Performed By: #### . Automated Diff #### [address] [address] [place] Absolute 0.9 x10*3/mcL Normal 0.1-1.1 [facility] Comment on above: Performed By: #### . Automated Diff #### [address] [address] Monocytes/100 WBC (Bld) 7.7 % Normal 3.7-11.9 [facility] Comment on above: Performed By: #### . Automated Diff #### [address] [address] Neutro Absolute 8.5 x10*3/mcL High 1.8-7.7 [facility] Comment on above: Performed By: #### . Automated Diff #### [address] [address] Neutro Auto 72.8 % High 47.2-70.8 [facility] Comment on above: Performed By: #### . Automated Diff #### [address] [address] ED Clinical Summaryon 2022 ED Clinical Summary [address] [id number] ED Clinical Summary Person [facility] Age[facility] 28 Years : 1995 Sex: Female PCP: Misbah Gamble DO Marital Status: Single Phone: Race: White Ethnicity: Not or Language: Citizen Of [place] Visit Reason: Cough; Shortness of breath; shortness of breath Acuity: 3 Enc Type: Emergency Med Service: Emergency Medicine Arrival: 04/17/2023 09:54:08 Discharge: 04/17/2023 13:11:00 LOS: 000 03:17 Checkin: 04/17/2023 09:54:08 Checkout: 04/17/2023 13:11:00 Dispo Type: Home or Self Care Address: [address] [place] [id number] Provider Notes: History of Present Illness Patient is a 28 years old female presented emergency with cough, shortness of breath,?dizzy,?also congested. ?Patient reports that she was doing well until last few days when she still having all the symptoms. ?Denies any fever. ?Reports that she is a smoker. ?Patient reports that she had?tubal ligation in the past. ?Denies any?history of COPD. ?Reports some asthma. ?Use albuterol. ?She reported that she ran out of her albuterol inhaler given that her PCP retired. Review of Systems As reviewed in the HPI. All other systems reviewed are negative or normal. Physical Exam CONSTITUTIONAL: [no apparent distress, well appearing] SKIN: [warm, dry, no jaundice, hives or petechiae] EYES: [pupils are equally round, extraocular movements intact without nystagmus, clear conjunctiva, non-icteric sclera] HENT: [normocephalic, atraumatic, moist mucus membranes, oropharynx clear without exudates] NECK: [Nontender and supple with no nuchal rigidity, no lymphadenopathy, full range of motion] PULMONARY: [Decreased bilateral air entry. ?No retractions. CARDIOVASCULAR: [regular rate, rhythm, normal S1 and S2. No appreciated murmurs. Strong radial pulses with intact distal perfusion] GASTROINTESTINAL: [soft, non-tender, non-distended, no palpable masses, no rebound or guarding] GENITOURINARY: [No costovertebral angle tenderness to palpation] LYMPHATICS: [no edema in lower extremities, no lymphadenopathy] MUSCULOSKELETAL: [Extremities are nontender to palpation and have no gross deformity, no edema, redness, or swelling] NEUROLOGIC: [alert and oriented x 3, GCS 15, normal mentation and speech. Moves all extremities x 4 without motor or sensory deficit, gait is stable without ataxia] PSYCHIATRIC: [normal mood and affect, thought process is clear and linear] Diagnosis: 1:Cough; 2:Smoker Problems No Problems Documented Smoking Status: Smoking Status 10 or more cigarettes (1/2 pack or more)/day in last 30 days Functional Status: Sensory Deficits: History of Falls: Mobility Assistance Prior to Admission: ADLs: Current Level of Assistance for Self-Care/Mobility: Cognitive Status: Allergies No Known Allergies Laboratory or Other Results This Visit (last charted value for your 04/17/2023 visit) Hematology 04/17/2023 11:49 AM WBC: 11.7 x10 RBC: 4.83 x10 Neutro Auto: 72.8 % -- Normal range between ( 47.2 and 70.8 ) Lymph Auto: 17.5 % -- Normal range between ( 27.2 and 40.8 ) [place] Auto: 7.7 % -- Normal range between ( 3.7 and 11.9 ) Eos Auto: 1.0 % -- Normal range between ( 0.0 and 5.4 ) Basophil Auto: 1.0 % -- Normal range between ( 0.0 and 1.5 ) Baso Absolute: 0.1 x10 MCV: 82.3 fL -- Normal range between ( 80.0 and 100.0 ) MCHC: 32.8 % -- Normal range between ( 31.0 and 37.0 ) Lymph Absolute: 2.0 x10 Hct: 39.7 % -- Normal range between ( 36.0 and 46.0 ) [place] Absolute: 0.9 x10 MCH: 26.9 pg -- Normal range between ( 27.0 and 35.0 ) Neutro Absolute: 8.5 x10 Hgb: 13.0 g/dL -- Normal range between ( 12.0 and 16.0 ) Mean Platelet Volume: 8.2 fL -- Normal range between ( 6.7 and 10.6 ) Platelet: 357 x10 Eos Absolute: 0.1 x10 RDW: 16.1 % -- Normal range between ( 11.6 and 14.8 ) Coagulation 04/17/2023 11:49 AM D-Dimer: 0.27 mg/L feu -- Normal range between ( 0.00 and 0.49 ) Chemistry 04/17/2023 11:49 AM Creatinine Lvl: 0.75 mg/dL -- Normal range between ( 0.44 and 1.03 ) BUN: 7 mg/dL -- Normal range between ( 8 and 26 ) Glucose Lvl: 106 mg/dL -- Normal range between ( 70 and 99 ) Potassium Lvl: 3.7 mmol/L -- Normal range between ( 3.4 and 4.8 ) Sodium Lvl: 138 mmol/L -- Normal range between ( 133 and 142 ) Calcium Lvl: 9.4 mg/dL -- Normal range between ( 8.5 and 10.3 ) Chloride: 109 mmol/L -- Normal range between ( 98 and 110 ) CO2: 21 mmol/L -- Normal range between ( 22 and 32 ) Anion Gap: 12 -- Normal range between ( 7 and 17 ) Estimated GFR: >60 mL/min/1.73m? BUN Crea Ratio: 9.3 -- Normal range between ( 10.0 and 20.0 ) Serum Preg: Negative Initial Troponin: <0.03 ng/mL -- Normal range between ( 0.00 and 0.03 ) Initial Myoglobin: 20.5 ng/mL -- Normal range between ( 14.3 and 65.8 ) (more content not included)... Normal [facility] ED Note-Physicianon 04-17-20 ED Note-Physician Chief Complaint pt states she can't breathe, has been coughing bright green mucus, dizziness. Pt is also congested Pt says she has asthma, but is out of her inhaler. History of Present Illness Patient is a 28 years old female presented emergency with cough, shortness of breath, dizzy, also congested. Patient reports that she was doing well until last few days when she still having all the symptoms. Denies any fever. Reports that she is a smoker. Patient reports that she had tubal ligation in the past. Denies any history of COPD. Reports some asthma. Use albuterol. She reported that she ran out of her albuterol inhaler given that her PCP retired. Review of Systems As reviewed in the HPI. All other systems reviewed are negative or normal. Physical Exam CONSTITUTIONAL: [no apparent distress, well appearing] SKIN: [warm, dry, no jaundice, hives or petechiae] EYES: [pupils are equally round, extraocular movements intact without nystagmus, clear conjunctiva, non-icteric sclera] HENT: [normocephalic, atraumatic, moist mucus membranes, oropharynx clear without exudates] NECK: [Nontender and supple with no nuchal rigidity, no lymphadenopathy, full range of motion] PULMONARY: [Decreased bilateral air entry. No retractions. CARDIOVASCULAR: [regular rate, rhythm, normal S1 and S2. No appreciated murmurs. Strong radial pulses with intact distal perfusion] GASTROINTESTINAL: [soft, non-tender, non-distended, no palpable masses, no rebound or guarding] GENITOURINARY: [No costovertebral angle tenderness to palpation] LYMPHATICS: [no edema in lower extremities, no lymphadenopathy] MUSCULOSKELETAL: [Extremities are nontender to palpation and have no gross deformity, no edema, redness, or swelling] NEUROLOGIC: [alert and oriented x 3, GCS 15, normal mentation and speech. Moves all extremities x 4 without motor or sensory deficit, gait is stable without ataxia] PSYCHIATRIC: [normal mood and affect, thought process is clear and linear] Vitals & Measurements T: 36.6 ?C (Oral) HR: 88 (Monitored) RR: 18 BP: 130/89 SpO2: 94% HT: 172 cm WT: 117 kg (Dosing) Additional Vitals No qualifying data available. Procedure No qualifying data available. ASA Documentation Medical Decision Making MEDICAL DECISION MAKING Number and Complexity of Problems Differential Diagnosis: _But not limited to bronchitis, pneumonia, PE, ACS, asthma exacerbation MDM Data External documents reviewed: _ My EKG interpretation: _ My CT interpretation: _ My X-ray interpretation: _ My Ultrasound interpretation: _ Decision rules/scores evaluated: _ Discussed with: _ Decision rules/scores evaluated: _ ? HEART Score: Not Completed ? PERC Rule: _ ? NEXUS C-spine Criteria: _ ? Grayling Ankle Rule: _ ? Grayling Knee Rule: _ ? Wells Criteria for DVT: _ ? Wells Criteria for PE: _ Discussed with: _ Treatment and Disposition ED Course: Patient is a 28 years old female presented emergency with the symptoms above. Patient lab work reviewed. D-dimer negative. EKG did not show STEMI. Patient other than that PE also negative. Patient's white blood cell count slightly elevated. Patient coughing yellowish sputum. X-ray negative for pneumonia. Patient is a smoker. We will start the patient on antibiotics and also steroids in addition to her albuterol inhaler. Decision was made given patient smoker and also coughing yellow sputum risk to develop pneumonia. Patient was also advised to call and follow-up with a primary care physician but she stated her primary care physician retired so I did give her information to establish care and call physician referral line. Return precautions discussed. Discharged home in stable condition to follow-up with a primary care physician in few days. Assessment/Plan 1. Cough Ordered: albuterol, 1 puffs, Inhale, q4hr, PRN, # 8 g, 0 Refill(s), Pharmacy: [facility] #[id number] azithromycin, 1 packets, Oral, As Indicated, as directed on package labeling, X 5 days, # 6 tabs, 0 Refill(s), 04/22/23 12:50:00 EDT, Pharmacy: [facility] #[id number] methylPREDNISolone, 125 mg, IV Push, Powder-Inj, Once, First Dose: 04/17/23 12:50:00 EDT, Stop Date: 04/17/23 12:50:00 EDT, STAT, Dispense From Location: [facility], 04/17/23 12:50:00 EDT predniSONE, 2 tabs, Oral, Daily, X 5 days, # 10 tabs, 0 Refill(s), 04/22/23 12:50:00 EDT, Pharmacy: [facility] #[id number] 2. Smoker Ordered: albuterol, 1 puffs, Inhale, q4hr, PRN, # 8 g, 0 Refill(s), Pharmacy: [facility] #[id number] azithromycin, 1 packets, Oral, As Indicated, as directed on package labeling, X 5 days, # 6 tabs, 0 Refill(s), 04/22/23 12:50:00 EDT, Pharmacy: [facility] #[id number] methylPREDNISolone, 125 mg, IV Push, Powder-Inj, Once, First Dose: 04/17/23 12:50:00 EDT, Stop Date: 04/17/23 12:50:00 EDT, STAT, Dispense From Location: [facility], 04/17/23 12:50:00 EDT predniSONE, 2 tabs, Oral, Daily, X 5 days, # 10 tabs, 0 Refill(s), 04/22/23 12:50:00 EDT, Pharmacy: [facility] #[id number] Orders: Discharge Patient EKG Refresh (more content not included)... Normal [facility] Flu A&B Ag Rapidon 3 Influenza A Ag Negative Normal Negative [facility] Comment on above: Performed By: #### C [id number] #### [address] [address] Influenza B Ag Negative Normal Negative [facility] Comment on above: Result Comment: The Alere BinaxNow Influenza A+B Card 2 detects both viable and non-viable influenza A and B. Test performance depends on the amount of virus (antigen) in the specimen and may or may not compare with cell culture results performed on the same specimen. A negative test result does not exclude the infection with influenza A and/or B. Therefore, the results obtained with the Alere BinaxNow Influenza A+B Test should be used in conjunction with clinical findings to make an accurate diagnosis. Additional testing is required to differentiate any specific influenza A+B subtypes or strains, in consultation with [facility] or local public health departments. Performed By: #### C [id number] #### [address] [address] Procalcitonin Levelon 2022 Procalcitonin Lvl <0.05 Normal <=0.49 [facility] Comment on above: Result Comment: < 0. 50 ng/mL: Low Risk of severe sepsis and/or septic shock. >2.00 ng/mL: High Risk of severe sepsis and/or septic shock. Concentrations under 0.5 ng/mL do not exclude local infections or systemic infections in their initial stages (e.g. under six hours from onset of illness). PCT concentrations between 0.50 and 2.00 ng/mL should be interpreted with consideration of the patient?s history. In this range, it is recommended to retest PCT within 6 to 24 hours. Performed By: #### . Automated Diff #### [address] [address] S Preg Qlon 04-17-2023 Serum Preg Negative Normal [facility] Comment on above: Result Comment: The hCG Combo Rapid Test has a sensitivity of 10 mIU/mL in serum and is capable of detecting as early as 1 day after the first missed menses. Performed By: #### . Automated Diff #### [place] [id number] XR Chest 1 Viewon 04-17-2023 XR Chest 1 View EXAM: XR Chest 1 View HISTORY: Cough, COMPARISON: 11/27/2022 TECHNIQUE: AP chest radiograph FINDINGS: Heart and mediastinum are midline. Lungs are clear. There is no mass or consolidation or pleural effusion IMPRESSION: No evidence of acute pulmonary disease. Final Dictated by: Rui Starr MD Dictated DT/TM: 04/17/2023 12:41 pm Signed by: Rui Starr MD Signed (Electronic Signature): 04/17/2023 12:43 pm (If Report Is Signed, Electronically Signed in Other Vendor System) Normal [facility] ED Clinical Summaryon 2022 ED Clinical Summary [address] [address] ED Clinical Summary Person Information Name: [facility] Age: 28 Years : 1995 Sex: Female PCP: Misbah Gamble DO Marital Status: Single Phone: Race: White Ethnicity: Not or Language: Citizen Of [place] Visit Reason: Back pain; Right hip pain Acuity: 4 Enc Type: Emergency Med Service: Emergency Medicine Arrival: 03/06/2023 14:17:39 Discharge: 03/06/2023 15:15:00 LOS: 000 00:58 Checkin: 03/06/2023 14:17:39 Checkout: 03/06/2023 15:15:00 Dispo Type: Home or Self Care Address: [facility] [address] [place] [id number] Provider Notes: Diagnosis: 1:Right lumbar radiculopathy Problems No Problems Documented Smoking Status: Smoking Status 10 or more cigarettes (1/2 pack or more)/day in last 30 days Functional Status: Sensory Deficits: History of Falls: Mobility Assistance Prior to Admission: ADLs: Current Level of Assistance for Self-Care/Mobility: Cognitive Status: Allergies No Known Allergies Laboratory or Other Results This Visit (last charted value for your 03/06/2023 visit) No Laboratory or Other Results This Visit Measurements: Height: Weight: 119 kg Blood Pressure: /81 mmHg BMI: Procedures No Procedures Documented Immunizations No Immunizations Documented This Visit Final Med List: Medications that have not changed Other Medications albuterol (Albuterol (Eqv-ProAir HFA) 90 mcg/inh inhalation aerosol) 2 Puffs Inhale (breathe in) every 6 hours as needed as needed for wheezing. Refills: 0. Last Dose: clonazePAM (KlonoPIN 1 mg oral tablet) Oral (given by mouth) As Indicated. Last Dose: guaifenesin-dextrome thorphan (Robitussin Cough + Chest Congestion DM 20 mg-200 mg/20 mL oral liquid) 20 Milliliter Oral (given by mouth) every 4 hours as needed as needed for cough. not to exceed 6 doses/day. Refills: 0. Last Dose: loratadine-pseudoeph edrine (Claritin-D 12 Hour oral tablet, extended release) 1 Tabs Oral (given by mouth) every 12 hours as needed as needed for congestion for 10 Days. Refills: 0. Last Dose: sertraline (Zoloft 50 mg oral tablet) Oral (given by mouth) every day. Last Dose: Other Medications albuterol (Albuterol (Eqv-ProAir HFA) 90 mcg/inh inhalation aerosol) 2 Puffs Inhale (breathe in) every 6 hours as needed as needed for wheezing. Refills: 0. clonazePAM (KlonoPIN 1 mg oral tablet) Oral (given by mouth) As Indicated. guaifenesin-dextrome thorphan (Robitussin Cough + Chest Congestion DM 20 mg-200 mg/20 mL oral liquid) 20 Milliliter Oral (given by mouth) every 4 hours as needed as needed for cough. not to exceed 6 doses/day. Refills: 0. loratadine-pseudoeph edrine (Claritin-D 12 Hour oral tablet, extended release) 1 Tabs Oral (given by mouth) every 12 hours as needed as needed for congestion for 10 Days. Refills: 0. sertraline (Zoloft 50 mg oral tablet) Oral (given by mouth) every day. Care Team Members: Attending Physician: Ambar Brannon PA-C Consulting Physician: Referring Physician: Provider Role Assigned Unassigned Ambar Brannon PA-C ED MidLevel 03/06/2023 14:23:05 Follow up: With: Address: When: Emergency Room , only if needed Comments: Return for any worsening symptoms, inability to ambulate, loss of bowel/bladder control, weakness or other concerns With: Address: When: [place] [phone] Business (1) Within 2 to 4 days Comments: Recheck today's symptoms Discharge Orders: Discharge Patient 03/06/23 15:02:00 EDT, Discharge to Home, Self Patient Education Information: Back Pain (Acute or Chronic); Sciatica; Back Pain (Acute or Chronic) [facility] Poison Help line: . [facility] Hotline: [place] Tobacco Quit Line: [place], [place]) [address]: [phone] [facility] ([place], [place]) [address]: [phone] [facility] [address] [facility]. [place], [place]: [phone] Normal [facility] ED Note-Physicianon 03-06-20 ED Note-Physician Chief Complaint Pt c/o back pain, My back is all screwed up, I need a shot of toradol History of Present Illness Patient presents to ED c/o acute on chronic back pain. Pain began around 1 week ago in right low back and radiates to right leg. Patient denies injury, bruising, swelling, decreased range of motion, abdominal pain, vomiting, dysuria, urinary/fecal incontinence, weakness and numbness. Symptoms are aggravated by movement, alleviated by nothing. Patient has had similar symptoms multiple times in the past, she has not taken any medication prior to arrival. She states when this pain had flared in the past, she usually receives a few injections here in ED as well as a one time Winterthur which greatly improves her pain. Review of Systems General: [Negative for fever, chills, weakness, malaise] Head/Face: [Negative for injury, pain] Eyes: [Negative for injury, redness, pain, discharge] Neck: [Negative for injury, pain, swelling, stiffness] Cardiovascular: [Negative for chest pain, palpitations, edema] Respiratory: [Negative for shortness of breath, cough, wheezing, pleuritic chest pain] Abdomen/GI: [Negative for abdominal pain, nausea, vomiting, diarrhea] Back: [Positive for right low back pain. Negative for injury, bruising, swelling] : [Negative for frequency, dysuria, hematuria, hesitancy] Musculoskeletal/Extr emity: [Positive for right leg pain radiating from low back. Negative for injury, decreased range of motion, swelling, numbness, tingling, weakness] Skin: [Negative for injury, rash, discoloration] Neuro: [Negative for urinary/fecal incontinence, numbness, tingling, saddle paresthesias] All other systems reviewed are negative and normal Physical Exam General: [Alert, awake, afebrile, no apparent distress] Eyes: [PERRL, extraocular movements intact, clear conjunctiva] Head/Face: [Normocephalic, atraumatic] Neck: [Non-tender, supple, no nuchal rigidity, full range of motion] Cardiovascular: [Regular rate and rhythm, no appreciated murmurs, normal S1 and S2, strong radial pulses w/intact distal perfusion] Respiratory: [Lungs clear to auscultation w/out wheezes, rhonchi, or rales, normal excursion, no accessory muscle use, no stridor] Abdomen/GI: [Soft non-tender, non-distended, no palpable masses, no rebound, no guarding. Bowel sounds active in all quadrants] Back: [Right low back gray cloth washer to palpation. Normal range of motion. No swelling, no ecchymosis. Straight leg raises normal] : [No costovertebral angle tenderness] Musculoskeletal/Extr emity: [Right buttock/hip and upper leg tender to palpation. No gross deformity, no edema, no erythema. Normal range of motion. Pulses and sensation intact] Skin: [[place], warm, dry, no injury, no rashes] Neuro: [Alert and oriented x 3, GCS 15, Normal mentation and speech. Moves all extremities w/out motor or sensory deficit, gait is steady, strength normal in all extremities] Psych: [Normal mood and affect, thought process is clear and linear] Vitals & Measurements T: 36.8 ?C (Oral) HR: 68 (Peripheral) RR: 18 BP: 123/81 SpO2: 97% HT: 172 cm WT: 119 kg (Dosing) Additional Vitals No qualifying data available. Medical Decision Making MEDICAL DECISION MAKING Number and Complexity of Problems Differential Diagnosis: strain, sprain, radiculopathy, chronic pain MDM Data External documents reviewed: _ My EKG interpretation: _ My CT interpretation: _ My X-ray interpretation: _ My Ultrasound interpretation: _ Decision rules/scores evaluated: _ Discussed with: _ Decision rules/scores evaluated: _ ? HEART Score: Not Completed ? PERC Rule: _ ? NEXUS C-spine Criteria: _ ? Grayling Ankle Rule: _ ? Grayling Knee Rule: _ ? Wells Criteria for DVT: _ ? Wells Criteria for PE: _ Discussed with: _ Treatment and Disposition ED Course: Patient w/acute on chronic back pain, similar to previous flares. Right low back gray cloth washer on exam. Patient is declining imaging and Rx medication at this time stating she would just like a dose of medication here in ED. Vitals are stable, patient is neurovascularly intact. Toradol, Norflex, Dexamethasone and a dose of Winterthur given here in ED w/relief. Will d/c home and have her follow up w/PCP for recheck. She was advised to return for any worsening symptoms, inability to ambulate, urinary/fecal incontinence, weakness or other concerns. Shared decision making: _ Code status: _ Reexamination/Reeval uation Patient is resting comfortably in room, no distress and feeling better after medication. Assessment/Plan 1. Right lumbar radiculopathy Orders: Discharge Patient Refresh vitals and sections below: Problem List/Past Medical History Ongoing Back pain Historical No qualifying data Procedure/Surgical History DNC 2013 [place] [facility] Medications Inpatient dexamethasone, 8 mg= 2 mL, IM, Once Winterthur 5 mg-325 mg oral tablet, 1 tabs, Oral, Once orphenadrine, 60 mg= 2 mL, IM, Once Toradol, 30 mg= 1 mL, IM, (more content not included)... Normal [facility] .UA Microscp Aon 11-27-2022 UA RBC Quant 0 /HPF Normal 0-5 [facility] Comment on above: Performed By: #### . Urinalysis Microscopic Auto ####[place] [address] [place] [address] UA Squepi Cells Quant 1 /HPF Normal 0-[address] [facility] Comment on above: Performed By: #### . Urinalysis Microscopic Auto ####[place] [address] [place] [address] UA WBC Quant 1 /HPF Normal 0-5 [facility] Comment on above: Performed By: #### . Urinalysis Microscopic Auto ####[place] [address] [place] [address] .eGFRon 11-27-2022 GFR/1.73 sq M.predicted MDRD (S/P/Bld) [Vol rate/Area] mL/min/{1.73_m2} Normal >=60 [facility] Comment on above: Result Comment: [facility] have implemented the eGFR calculation approach that does not have a coefficient for race and that conforms to the NKF-ASN Task Force Recommendations. Stages of Chronic Kidney Disease GFR Stage 3a Mild to moderate loss of kidney function 59 to 45 Stage 3b Moderate to severe loss of kidney function 44 to 33 Stage 4 Severe loss of kidney function 29 to 15 Stage 5 Kidney failure Less than 15 GFR calculated using the CKD-Epi Creatinine Equation (2020): eGFR = 142 X min(SCr/?, 1)? X max(SCr /?, 1)-1.200 X 0.9938Age X 1.012 [if female] Abbreviations/Units: eGFR (estimated glomerular filtration rate) = mL/min/1.73 m2 SCr (standardized serum creatinine) = mg/dL ? = 0.7 (females) or 0.9 (males) ? = -0.241 (females) or -0.302 (males) min = indicates the minimum of SCr/? or 1 max = indicates the maximum of SCr/? or 1 Age = years Performed By: #### A MI2 #### [address] [address] AMI 2Hron 11-27-2022 2 Hour Myoglobin 10.1 ng/mL Low 14.3-65.8 [facility] Comment on above: Performed By: #### A MI2 #### [place] [id number] 2 Hour Troponin <0.03 Normal 0.00-0.03 [facility] Comment on above: Result Comment: An i ncreased Troponin-I value, in the absence of myocardial ischemia, may indicate other etiologies of cardiac damage. Performed By: #### A MI2 #### [place] [id number] AMI Initon 11-27-2022 Initial Myoglobin 12.8 ng/mL Low 14.3-65.8 [facility] Comment on above: Performed By: #### A MI1 ####[place] [address] Initial Troponin <0.03 Normal 0.00-0.03 [facility] Comment on above: Result Comment: An i ncreased Troponin-I value, in the absence of myocardial ischemia, may indicate other etiologies of cardiac damage. Performed By: #### A MI1 ####[place] [id number] BNPon 11-27-2022 Natriuretic peptide B (Bld) [Mass/Vol] 14 pg/mL Normal 0-100 [facility] Comment on above: Performed By: #### . Automated Diff #### [place] [id number] CBC w/ Diffon 11-27-2022 Erythrocyte distribution width (RBC) [Ratio] 16.6 % High 11.6-14.8 [facility] Comment on above: Performed By: #### . Automated Diff #### [place] [id number] Hematocrit (Bld) [Volume fraction] 40.0 % Normal 36.0-46.0 [facility] Comment on above: Performed By: #### . Automated Diff #### [address] [address] Hemoglobin (Bld) [Mass/Vol] 13.2 g/dL Normal 12.0-16.0 [facility] Comment on above: Performed By: #### . Automated Diff #### [address] [address] MCH (RBC) [Entitic mass] 28.3 pg Normal 27.0-35.0 [facility] Comment on above: Performed By: #### . Automated Diff #### [place] [id number] MCHC 32.9 % Normal 31.0-37.0 [facility] Comment on above: Performed By: #### . Automated Diff #### [place] [id number] MCV (RBC) [Entitic vol] 86.0 fL Normal 80.0-100.0 [facility] Comment on above: Performed By: #### . Automated Diff #### [place] [id number] Platelet 282 x10*3/mcL Normal 150-350 [facility] Comment on above: Performed By: #### . Automated Diff #### [address] [address] Platelet mean volume (Bld) [Entitic vol] 8.7 fL Normal 6.7-10.6 [facility] Comment on above: Performed By: #### . Automated Diff #### [place] [id number] RBC 4.66 x10*6/mcL Normal 3.80-5.20 [facility] Comment on above: Performed By: #### . Automated Diff #### [address] [address] WBC 6.4 x10*3/mcL Normal 4.5-11.0 [facility] Comment on above: Performed By: #### . Automated Diff #### [place] [id number] CMPon 11-27-2022 Albumin [Mass/Vol] 3.7 g/dL Normal 3.2-4.9 [facility] Comment on above: Performed By: #### . Automated Diff #### [address] [address] Albumin/Globulin [Mass ratio] 1.2 {ratio} Normal 1.1-2.2 [facility] Comment on above: Performed By: #### . Automated Diff #### [address] [address] Alk Phos 75 IU/L Normal 32-91 [facility] Comment on above: Performed By: #### . Automated Diff #### [address] [address] ALT [Catalytic activity/Vol] 16 U/L Normal 14-54 [facility] Comment on above: Performed By: #### . Automated Diff #### [address] [address] Anion gap [Moles/Vol] 8 mmol/L Normal 7-[address] [facility] Comment on above: Performed By: #### . Automated Diff #### [address] [address] AST [Catalytic activity/Vol] 16 U/L Normal 15-41 [facility] Comment on above: Performed By: #### . Automated Diff #### [address] [address] Bili Total 0.3 mg/dL Normal 0.3-1.2 [facility] Comment on above: Performed By: #### . Automated Diff #### [address] [address] Calcium [Mass/Vol] 9.0 mg/dL Normal 8.5-10.3 [facility] Comment on above: Performed By: #### . Automated Diff #### [address] [address] Chloride [Moles/Vol] 106 mmol/L Normal 98-110 [facility] Comment on above: Performed By: #### . Automated Diff #### [address] [address] CO2 [Moles/Vol] 24 mmol/L Normal 22-32 [facility] Comment on above: Performed By: #### . Automated Diff #### [address] [address] Creatinine [Mass/Vol] 0.67 mg/dL Normal 0.44-1.[address] [facility] Comment on above: Performed By: #### . Automated Diff #### [address] [address] Glucose [Mass/Vol] 92 mg/dL Normal 70-99 [facility] Comment on above: Performed By: #### . Automated Diff #### [address] [address] Potassium [Moles/Vol] 3.5 mmol/L Normal 3.4-4.[address] [facility] Comment on above: Performed By: #### . Automated Diff #### [address] [address] Protein [Mass/Vol] 6.9 g/dL Normal 6.5-8.1 [facility] Comment on above: Performed By: #### . Automated Diff #### [address] [address] Sodium [Moles/Vol] 135 mmol/L Normal 133-142 [facility] Comment on above: Performed By: #### . Automated Diff #### [address] [address] Urea nitrogen [Mass/Vol] 7 mg/dL Low 8-26 [facility] Comment on above: Performed By: #### . Automated Diff #### [address] [address] Urea nitrogen/Creatinine [Mass ratio] 10.4 mg/mg Normal 10.0-20.0 [facility] Comment on above: Performed By: #### . Automated Diff #### [address] [address] COV19 Rapidon 11-27-2022 LAB ONLY Result Called? No Normal [facility] Comment on above: Performed By: #### C [id number] ####[place] [address] [place] [id number] Reason for Rapid Test COVID Exposure Normal [facility] Comment on above: Performed By: #### C [id number] ####[place] [id number] SARS-CoV-2 (COVID-19) RNA OLEGARIO+probe Ql (Unsp spec) Negative Normal Negative [facility] Comment on above: Result Comment: The 2019 novel coronavirus SARS-CoV-2 target nucleic acids are not detected. This test is for the detection of SARS-CoV-2 RNA. Positive results are indicative of active infection with SARS-CoV-2. Positive results do not rule out bacterial infection or co-infection with other viruses. Negative results should be treated as presumptive and, if inconsistent with clinical signs and symptoms or necessary for patient management, should be tested with an alternative molecular assay.Negative results do not preclude SARS-CoV-2 infection and should not be used as the sole basis for treatment or other patient management decisions. Clinical correlation with patient history and other diagnostic information is necessary to determine patient infection status. ADDITIONAL INFORMATION: Testing was performed using the ID NOW COVID-19 test by [employer], which has received Emergency Use Authorization (EUA) by the U.S. Food and Drug Administration. The [employer] ID NOW COVID-19 test performs best when patients are tested within the first 7 days of symptom onset. Results should be interpreted with caution for asymptomatic patients or those tested outside the 7 day target. Refer to CDC guidelines for further testing algorithms. Fact sheets for this Emergency Use Authorization (EUA) assay can be found at the following links: Fact Sheet for HealthCare Providers: https://www.fda.gov/media/560830/download Fact Sheet for Patients: https://www.fda.gov/media/051479/download Performed By: #### C [id number] ####[place] [address] [place] [address] CRPon 11-27-2022 CRP 0.30 mg/dL Normal 0.00-0.75 [facility] Comment on above: Result Comment: CRP measurement is useful for assessment of non-specific INFLAMMATORY RESPONSE to infection or injury AND is a sensitive MARKER of ACUTE INFLAMMATION including CARDIAC RISK ASSESSMENT. CARDIAC patients with elevated CRP are POTENTIALLY at a HIGHER RISK OF FUTURE CARDIAC EVENTS. Performed By: #### C RP ####[address] [address] Diff Autoon 11-27-2022 Baso Absolute 0.0 x10*3/mcL Normal 0.0-0.2 [facility] Comment on above: Performed By: #### . Automated Diff #### [address] [address] Basophils/100 WBC (Bld) 0.8 % Normal 0.0-1.5 [facility] Comment on above: Performed By: #### . Automated Diff #### [address] [address] Eos Absolute 0.2 x10*3/mcL Normal 0.0-0.4 [facility] Comment on above: Performed By: #### . Automated Diff #### [address] [address] Eosinophils/100 WBC (Bld) 3.9 % Normal 0.0-5.4 [facility] Comment on above: Performed By: #### . Automated Diff #### [address] [address] Lymph Absolute 2.5 x10*3/mcL Normal 1.0-4.8 [facility] Comment on above: Performed By: #### . Automated Diff #### [address] [address] Lymphocytes/100 WBC (Bld) 39.3 % Normal 27.2-40.8 [facility] Comment on above: Performed By: #### . Automated Diff #### [address] [address] [place] Absolute 0.7 x10*3/mcL Normal 0.1-1.1 [facility] Comment on above: Performed By: #### . Automated Diff #### [address] [address] Monocytes/100 WBC (Bld) 11.1 % Normal 3.7-11.9 [facility] Comment on above: Performed By: #### . Automated Diff #### [address] [address] Neutro Absolute 2.9 x10*3/mcL Normal 1.8-7.7 [facility] Comment on above: Performed By: #### . Automated Diff #### [address] [address] Neutro Auto 44.9 % Low 47.2-70.8 [facility] Comment on above: Performed By: #### . Automated Diff #### [address] [address] ED Clinical Summaryon 2022 ED Clinical Summary [address] [id number] ED Clinical Summary Person Information Name: Evelyne [facility] Age: 27 Years : 1995 Sex: Female PCP: Misbah Gamble DO Marital Status: Single Phone: Race: White Ethnicity: Not or Language: Citizen Of [place] Visit Reason: Shortness of breath; Dyspnea - adult Acuity: 3 Enc Type: Emergency Med Service: Emergency Medicine Arrival: 11/27/2022 11:49:27 Discharge: 11/27/2022 16:01:00 LOS: 000 04:12 Checkin: 11/27/2022 11:49:27 Checkout: 11/27/2022 16:01:00 Dispo Type: Home or Self Care Address: [address] [place] [id number] Provider Notes: Diagnosis: 1:Dyspnea; 2:Edema; 3:Bronchitis; 4:Chest pain Problems No Problems Documented Smoking Status: Smoking Status 10 or more cigarettes (1/2 pack or more)/day in last 30 days Functional Status: Sensory Deficits: History of Falls: Mobility Assistance Prior to Admission: ADLs: Current Level of Assistance for Self-Care/Mobility: Cognitive Status: Allergies No Known Allergies Laboratory or Other Results This Visit (last charted value for your 11/27/2022 visit) Hematology 11/27/2022 12:16 PM WBC: 6.4 x10 RBC: 4.66 x10 Neutro Auto: 44.9 % -- Normal range between ( 47.2 and 70.8 ) Lymph Auto: 39.3 % -- Normal range between ( 27.2 and 40.8 ) [place] Auto: 11.1 % -- Normal range between ( 3.7 and 11.9 ) Eos Auto: 3.9 % -- Normal range between ( 0.0 and 5.4 ) Basophil Auto: 0.8 % -- Normal range between ( 0.0 and 1.5 ) Baso Absolute: 0.0 x10 MCV: 86.0 fL -- Normal range between ( 80.0 and 100.0 ) MCHC: 32.9 % -- Normal range between ( 31.0 and 37.0 ) Lymph Absolute: 2.5 x10 Hct: 40.0 % -- Normal range between ( 36.0 and 46.0 ) [place] Absolute: 0.7 x10 MCH: 28.3 pg -- Normal range between ( 27.0 and 35.0 ) Neutro Absolute: 2.9 x10 Hgb: 13.2 g/dL -- Normal range between ( 12.0 and 16.0 ) Mean Platelet Volume: 8.7 fL -- Normal range between ( 6.7 and 10.6 ) Platelet: 282 x10 Eos Absolute: 0.2 x10 RDW: 16.6 % -- Normal range between ( 11.6 and 14.8 ) Coagulation 11/27/2022 12:16 PM PT: 9.9 seconds -- Normal range between ( 9.3 and 11.9 ) INR: 0.9 ratio PTT: 27.2 seconds -- Normal range between ( 20.6 and 29.2 ) Urinalysis 11/27/2022 2:41 PM UA Color: Colorless UA Urobilinogen: Normal mg/dL UA Bili: Negative UA Ketones: Negative mg/dL UA Leukocyte Esterase: Negative UA Nitrite: Negative UA Glucose: Normal mg/dL UA Protein: Negative mg/dL UA Blood: Negative UA Spec Grav: 1.003 -- Normal range between ( 1.003 and 1.035 ) UA pH: 6.0 UA Clarity: Clear UA Source: Clean Catch UA WBC Quant: 1 /HPF -- Normal range between ( 0 and 5 ) UA RBC Quant: 0 /HPF -- Normal range between ( 0 and 5 ) UA Squepi Cells Quant: 1 /HPF -- Normal range between ( 0 and 29 ) Chemistry 11/27/2022 3:13 PM 2 Hour Troponin: <0.03 ng/mL -- Normal range between ( 0.00 and 0.03 ) 2 Hour Myoglobin: 10.1 ng/mL -- Normal range between ( 14.3 and 65.8 ) 11/27/2022 12:16 PM Creatinine Lvl: 0.67 mg/dL -- Normal range between ( 0.44 and 1.03 ) BUN: 7 mg/dL -- Normal range between ( 8 and 26 ) Glucose Lvl: 92 mg/dL -- Normal range between ( 70 and 99 ) Potassium Lvl: 3.5 mmol/L -- Normal range between ( 3.4 and 4.8 ) CRP: 0.30 mg/dL -- Normal range between ( 0.00 and 0.75 ) AST: 16 IU/L -- Normal range between ( 15 and 41 ) ALT: 16 IU/L -- Normal range between ( 14 and 54 ) Sodium Lvl: 135 mmol/L -- Normal range between ( 133 and 142 ) Calcium Lvl: 9.0 mg/dL -- Normal range between ( 8.5 and 10.3 ) Albumin Lvl: 3.7 g/dL -- Normal range between ( 3.2 and 4.9 ) Total Protein: 6.9 g/dL -- Normal range between ( 6.5 and 8.1 ) Magnesium Lvl: 1.8 mg/dL -- Normal range between ( 1.7 and 2.4 ) Bili Total: 0.3 mg/dL -- Normal range between ( 0.3 and 1.2 ) Alk Phos: 75 IU/L -- Normal range between ( 32 and 91 ) Chloride: 106 mmol/L -- Normal range between ( 98 and 110 ) CO2: 24 mmol/L -- Normal range between ( 22 and 32 ) Anion Gap: 8 -- Normal range between ( 7 and 17 ) TSH: 1.06 mcIU/mL -- Normal range between ( 0.45 and 5.33 ) Estimated GFR: >60 mL/min/1.73m? BNP: 14 pg/mL -- Normal range between ( 0 and 100 ) BUN Crea Ratio: 10.4 -- Normal range between ( 10.0 and 20.0 ) AG Ratio: 1.2 -- Normal range between ( 1.1 and 2.2 ) Initial Troponin: <0.03 ng/mL -- Normal range between ( 0.00 and 0.03 ) Initial Myoglobin: 12.8 ng/mL -- Normal range between ( 14.3 and 65.8 ) Procalcitonin Lvl: <0.05 ng/mL Molecular 11/27/2022 12:16 PM SARS-CoV-2 RNA Detection: Negative Diagnostic Radiology 11/27/2022 12:35 PM XR Chest 1 View: XR Chest 1 View Measurements: Height: Weight: 113.8 kg Blood Pressure: /78 mmHg BMI: Procedures No Procedures Documented Immunizations No Immunizations Documented This Visit Final M (more content not included)... Normal [facility] ED Note-Physicianon 11-28-19 ED Note-Physician Chief Complaint Pt states she has been feeling short of breath x4 days. History of Present Illness Patient is a 27 year old female presenting to the ED for evaluation of dyspnea. Patient reports she has been feeling short of breath for the past 4 days. She also complains of a productive cough with clear phlegm, lightheadedness when she coughs and stands up, chest pain when she coughs, and lower extremity swelling which has been ongoing for the past month, and she reports she has gained about 15 pounds since last month. She also reports she intermittently has chest pain for a while which she had attributed to her history of meth and Adderall abuse. She is 8 months sober. She denies urinary or bowel changes, or fever. She thinks she may have asthma as there is a history of asthma in her family, but she has never been officially diagnosed. She has used an inhaler in the past but does not have one currently. She does not have a history of cardiac issues or DM, and she has not had a stress test in the past. There is a history of cardiac issues in her family at a young age. Patient smokes tobacco, and she reports she is currently switching to e-cigarettes. She also smokes marijuana but denies alcohol use or other drug use. Review of Systems As reviewed in the HPI. All other systems reviewed are negative or normal. Physical Exam CONSTITUTIONAL: [no apparent distress, morbidly obese] SKIN: [warm, dry, no jaundice, hives or petechiae] EYES: [pupils are equally round, extraocular movements intact without nystagmus, clear conjunctiva, non-icteric sclera] HENT: [normocephalic, atraumatic, moist mucus membranes, oropharynx clear without exudates] NECK: [Nontender and supple with no nuchal rigidity, no lymphadenopathy, full range of motion] PULMONARY: [Wheezing and rhonchi bilaterally, sating in the mid 90s on room air, normal excursion, no accessory muscle use and no stridor] CARDIOVASCULAR: [regular rate, rhythm, normal S1 and S2. No appreciated murmurs. Strong radial pulses with intact distal perfusion] GASTROINTESTINAL: [soft, non-tender, non-distended, no palpable masses, no rebound or guarding] GENITOURINARY: [No costovertebral angle tenderness to palpation] LYMPHATICS: [ no lymphadenopathy] MUSCULOSKELETAL: [Lower extremity swelling. Otherwise Extremities are nontender to palpation and have no gross deformity, no edema, redness, or swelling] NEUROLOGIC: [alert, normal mentation and speech. Moves all extremities x 4 without motor or sensory deficit] PSYCHIATRIC: [normal mood and affect, thought process is clear and linear] Vitals & Measurements T: 36.8 ?C (Oral) HR: 77 (Peripheral) RR: 19 BP: 137/78 SpO2: 96% HT: 172 cm WT: 113.8 kg (Dosing) Additional Vitals No qualifying data available. Procedure No qualifying data available. ASA Documentation Medical Decision Making Safia Adams scribing for and in the presence of Dr. Agee. Scribe Attestation: The information in this document, created by the medical esthetician for me, accurately reflects the services I personally performed and the decisions made by me. This report has been created using voice recognition software. It may contain minor errors which are inherent in voice recognition technology. MEDICAL DECISION MAKING Number and Complexity of Problems Differential Diagnosis: _Acute cardiac event, CHF, arrhythmia, PE, pulmonary edema, pleural effusion, viral illness, COVID, bronchitis, lung cancer MDM Data External documents reviewed: _ My EKG interpretation: _Normal sinus rhythm My CT interpretation: _ My X-ray interpretation: _Normal chest x-ray My Ultrasound interpretation: _ Decision rules/scores evaluated: _ Discussed with: _ Decision rules/scores evaluated: _ ? HEART Score: Not Completed ? PERC Rule: _ ? NEXUS C-spine Criteria: _ ? Grayling Ankle Rule: _ ? Grayling Knee Rule: _ ? Wells Criteria for DVT: _ ? Wells Criteria for PE: _ Discussed with: _ Treatment and Disposition ED Course: _Patient seen and evaluated. Examination findings as noted above. Cardiopulmonary work-up was ordered. Patient was given breathing treatment, steroids, decongestant, magnesium sulfate. On review of the work-up, there are no significant abnormal findings. Troponins were normal, chest x-ray appeared normal, COVID-negative. On reevaluation of the patient, she reported feeling much improved following the medications administered in the emergency department. Wheezing greatly improved on exam. Patient was given inhaler. Discussed all of the findings and treatment plan for discharge home and outpatient follow-up for further cardiac and pulmonary testing. Patient voiced understanding and is in agreement with the plan. Stable and cleared for discharge home. Shared decision making: _ Code status: _ Assessment/Plan 1. Dyspnea Ordered: albuterol, 2 puffs, Inhale, q6hr, PRN, # 6.7 g, 0 Refill(s), Pharmacy: [facility] #[id number] azithromycin, 1 tabs, Oral, Daily, X 5 days, # 5 tabs, (more content not included)... Normal [facility] Magnesiumon 11-27-2022 Magnesium [Mass/Vol] 1.8 mg/dL Normal 1.7-2.4 [facility] Comment on above: Performed By: #### M G ####[address] [address] PTon 11-27-2022 INR Coag (PPP) [Relative time] 0.9 {INR} Normal <=3.5 [facility] Comment on above: Result Comment: INR has no normal range. INR Therapeutic range is: 2.0-3.0 (AF, CVA, TIAs, DVT prophylaxis, acute DVT) 2.5-3.5 ([facility] heart valves, recurrent thrombosis/emboli) Performed By: #### . Automated Diff #### [facility] [address] [place] [address] PT Coag (PPP) [Time] 9.9 s Normal 9.3-11.9 [facility] Comment on above: Performed By: #### . Automated Diff #### [address] [address] PTTon 11-27-2022 aPTT Coag (Bld) [Time] 27.2 s Normal 20.6-29.2 [facility] Comment on above: Performed By: #### A MI2 #### [address] [address] Procalcitonin Levelon 2022 Procalcitonin Lvl <0.05 Normal <=0.49 [facility] Comment on above: Result Comment: < 0. 50 ng/mL: Low Risk of severe sepsis and/or septic shock. >2.00 ng/mL: High Risk of severe sepsis and/or septic shock. Concentrations under 0.5 ng/mL do not exclude local infections or systemic infections in their initial stages (e.g. under six hours from onset of illness). PCT concentrations between 0.50 and 2.00 ng/mL should be interpreted with consideration of the patient?s history. In this range, it is recommended to retest PCT within 6 to 24 hours. Performed By: #### . Automated Diff #### [address] [address] TSH w/ Rflx Free T4on 2022 TSH Qn 1.06 m[IU]/L Normal 0.45-5.33 [facility] Comment on above: Result Comment: Refe rence Ranges for individuals from to 18 years of age were obtained from The [employer] Handbook (20 ed) published by [facility]. Reference Ranges for Females: Females, 1st Trimester 0.05 ? 3.7 uIU/mL Females, 2nd Trimester 0.31 ? 4.35 uIU/mL Females, 3rd Trimester 0.41 ? 5.18 uIU/mL Performed By: #### A MI2 #### [facility] [address] [place] [address], [place] [address] UA w Culture if Indon 2022 Color (U) Colorless Normal [facility] Comment on above: Performed By: #### U CI ####[address] [place] [address] Ketones Ql (U) Negative Normal Negative [facility] Comment on above: Performed By: #### U CI ####[address] [place] [address] UA Blood Negative Normal Negative [facility] Comment on above: Performed By: #### U CI ####[address] [place] [address] UA Clarity Clear Normal [facility] Comment on above: Performed By: #### U CI ####[address] [place] [address] UA Glucose Normal Normal Negative [facility] Comment on above: Performed By: #### U CI ####[address] [place] [address] UA Leukocyte Esterase Negative Normal Negative [facility] Comment on above: Performed By: #### U CI ####[address] [place] [address] UA Nitrite Negative Normal Negative [facility] Comment on above: Performed By: #### U CI ####[address] [place] [address] UA pH 6.0 Normal 4.5 - 7.8 [facility] Comment on above: Performed By: #### U CI ####[address] [place] [address] UA Protein Negative Normal Negative [facility] Comment on above: Performed By: #### U CI ####[address] [place] [address] UA Source Clean Catch Normal [facility] Comment on above: Performed By: #### U CI ####[address] [address] UA Spec Grav 1.003 Normal 1.003-1.035 [facility] Comment on above: Performed By: #### U CI ####[address] [address] UA Urobilinogen Normal Normal 0.2 - 1.0 [facility] Comment on above: Performed By: #### U CI ####[place] [address] Urobilinogen (U) [Mass/Vol] Negative Normal Negative [facility] Comment on above: Performed By: #### U CI ####[place] [address] XR Chest 1 Viewon 11-27-2022 XR Chest 1 View EXAM: XR Chest 1 View HISTORY: Chest pain, shortness of breath, and weakness COMPARISON: None. TECHNIQUE: Chest X-ray, 1 view. FINDINGS: Support devices: None. Lungs/pleura: No radiographic evidence of edema or infiltrate. No consolidation, effusion, or pneumothorax. Borderline pulmonary hyperexpansion. Heart and mediastinum: Normal contours. Bones: No acute abnormality identified. IMPRESSION: No active disease. Final Dictated by: Juan Hess MD Dictated DT/TM: 11/27/2022 12:54 pm Signed by: Juan Hess MD Signed (Electronic Signature): 11/27/2022 12:55 pm (If Report Is Signed, Electronically Signed in Other Vendor System) Normal [facility] UrinalysisOrdered By: Jade Hicks on 02-09-2021 Bilirubin Urine Negative NEGATIVE [employer] [facility] Work Phone: Color, UA YELLOW YELLOW [facility] Work Phone: Glucose, Ur Negative NEGATIVE [facility] Work Phone: Interpretation and review of laboratory results Abnormal [facility] Work Phone: Ketones Ql (U) Negative NEGATIVE [facility] Work Phone: Leukocyte esterase Test strip Ql (U) Negative NEGATIVE [facility] Work Phone: Nitrite, Urine Negative NEGATIVE [facility] Work Phone: pH, UA 7.0 [facility] Work Phone: Protein, UA Negative NEGATIVE [facility] Work Phone: Specific [place], UA <1.005 Low [facility] [employer] Work Phone: Turbidity UA CLEAR CLEAR [facility] Work Phone: Urinalysis Comments NOT REPORTED [facility] Work Phone: Urine Hgb Negative NEGATIVE [facility] [employer] Work Phone: Urobilinogen, Urine Normal Normal [facility] [employer] Work Phone: [facility] [employer] Work Phone: Vital Signs Date Time Vital Sign Value Performing Clinician Shanteli renetta 05-04-2022 22:48-0400 Body temperature 97.3 [degF] Carl Andes DO Work Phone: [facility] [employer] 05-04-2022 22:48-0400 Diastolic blood pressure 79 mm[Hg] Carl Andes DO Work Phone: [facility] [employer] 05-04-2022 22:48-0400 Heart rate 83 /min Carl Andes DO [email or web address] 05-04-2022 22:48-0400 Respiratory rate 17 /min Carl Andes DO Work [email or web address] 05-04-2022 22:48-0400 SaO2% (BldA) [Mass fraction] 98 % Carl Andes DO Work Phone: [facility] [employer] 05-04-2022 22:48-0400 Systolic blood pressure 116 mm[Hg] Carl Andes DO Work Phone: [facility] [employer] 02-09-2021 17:15-0400 Body height 172.7 cm Jade Kurt ROOM SERVICE MANAGER - CNM Work Phone: [employer] Work Phone: 02-09-2021 17:15-0400 Body mass index (BMI) [Ratio] 37.86 kg/m2 Jade Kurt ROOM SERVICE MANAGER - CNM Work Phone: [employer] Work Phone: 02-09-2021 17:15-0400 Body temperature 97.81 [degF] Jade Kurt ROOM SERVICE MANAGER - CNM Work Phone: [employer] Work Phone: 02-09-2021 17:15-0400 Body weight 112.95 kg Jade Kurt ROOM SERVICE MANAGER - CNM Work Phone: [employer] Work Phone: 02-09-2021 17:15-0400 Diastolic blood pressure 64 mm[Hg] Jade Kurt ROOM SERVICE MANAGER - CNM Work Phone: [employer] Work Phone: 02-09-2021 17:15-0400 Heart rate 88 /min Jade Kurt ROOM SERVICE MANAGER - CNM Work Phone: [employer] Work Phone: 02-09-2021 17:15-0400 Respiratory rate 18 /min Jade Kurt ROOM SERVICE MANAGER - CNM Work Phone: [employer] Work Phone: 02-09-2021 17:15-0400 Systolic blood pressure 122 mm[Hg] Jade Kurt ROOM SERVICE MANAGER - CNM Work Phone: [employer] Work Phone: 02-09-2021 16:33-0400 Body temperature 97.2 [degF] Casimiro Campos MD Work Phone: [employer] Work Phone: 02-09-2021 16:33-0400 Diastolic blood pressure 70 mm[Hg] Casimiro Campos MD Work Phone: [employer] Work Phone: 02-09-2021 16:33-0400 Heart rate 93 /min Casimiro Campos MD Work Phone: [employer] Work Phone: 02-09-2021 16:33-0400 Respiratory rate 18 /min Casimiro Campos MD Work Phone: [employer] Work Phone: 02-09-2021 16:33-0400 SaO2% (BldA) [Mass fraction] 98 % Casimiro Campos MD Work Phone: [employer] Work Phone: 02-09-2021 16:33-0400 Systolic blood pressure 117 mm[Hg] Casimiro Campos MD Work Phone: [employer] Work Phone: 01-05-2021 17:09-0400 Body temperature 98.1 [degF] Sr House DO Work Phone: [employer] Work Phone: 01-05-2021 17:09-0400 Diastolic blood pressure 74 mm[Hg] Sr House DO Work Phone: [employer] Work Phone: 01-05-2021 17:09-0400 Heart rate 103 /min Sr House DO Work Phone: [employer] Work Phone: 01-05-2021 17:09-0400 Respiratory rate 16 /min Sr [employer] DO Work Phone: [employer] Work Phone: 01-05-2021 17:09-0400 SaO2% (BldA) [Mass fraction] 97 % Sr House DO Work Phone: [employer] Work Phone: 01-05-2021 17:09-0400 Systolic blood pressure 115 mm[Hg] House DO Work Phone: [facility] [employer] Phone: Encounters Encounter Date Encounter Type Care Provider Facility Start: 08-02-2023 End: 08-02-2023 Emergency department patient visit MARY CRAWLEY [facility] Start: 08-02-2023 End: 08-02-2023 Emergency department patient visit GIGI [facility] Start: 06-27-2023 End: 06-27-2023 Emergency department patient visit [facility] Start: 06-27-2023 End: 06-27-2023 Emergency department patient visit [facility] Start: 06-26-2023 End: 06-26-2023 Emergency department [id number] Start: 06-14-2023 End: 06-14-2023 Emergency department patient visit [facility] Start: 06-13-2023 End: 06-13-2023 Emergency department patient visit IVÁN Walden [facility] Start: 06-08-2023 End: 06-08-2023 Emergency department patient visit [facility] Start: 05-10-2023 End: 05-11-2023 ambulatory [facility] Start: 04-18-2023 End: 04-19-2023 ambulatory Christian Salinas MD Facility:[facility] Start: 04-17-2023 End: 04-17-2023 Emergency department patient visit Christian Salinas MD Facility:[facility] Start: 04-01-2023 ambulatory [facility] Start: 03-06-2023 End: 03-06-2023 Emergency department patient visit [facility] Facility[facility] Start: 02-17-2023 Emergency department patient visit MISBAH GAMBLE [facility] Start: 11-27-2022 End: 11-27-2022 Emergency department patient visit Misbah Gamble DO Facility:[facility] Start: 10-08-2022 End: 10-08-2022 ambulatory [facility] Facility: Start: 05-04-2022 End: 05-04-2022 Emergency department patient visit Carl Wilson DO Work Phone: [facility] Comment on above: Acute exacerbation o f chronic low back pain (Primary Dx); Degenerative disc disease, lumbar Start: 02-09-2021 End: 02-09-2021 Subsequent hospital visit by physician Jade Toro CNM Work Phone: [facility] Start: 02-09-2021 End: 02-09-2021 Emergency department patient visit Casimiro Campos MD Work Phone: [facility] Start: 01-05-2021 End: 01-05-2021 Emergency department patient visit [facility] DO Work Phone: [facility] Comment on above: Dental abscess (Prim dennise Dx); Dental caries Procedures Date Procedure Procedure Detail Performing Clinician Start: 02-09-2021 Urnls dip stick/tabl et rgnt auto w/o microscopy Jade Hicks APRN - [employer]NA[employer]ulfo Work Phone: Plan of Treatment Date Care Activity Detail Author Start: 03-01-2022 Influenza vaccination Flu vaccine (# 1) [facility] Start: 04-01-2021 Influenza vaccination [facility] Work Phone: Start: 2014 Screening for malign ant neoplasm of cervix [facility] Start: 02-29-2012 DTaP/Tdap/Td vaccine (1 - Tdap) DTaP/Tdap/Td vaccine (1 - Tdap) [facility] Start: 2011 Hepatitis C screening Hepatitis C sc reen [facility] Start: 02-29-2008 HIV screening HIV screen [facility] Start: 2005 COVID-19 Vaccine (1) COVID-19 Vaccin e (1) [facility] Work Phone: Start: 2005 Depression Screen Depression Screen [employer] Start: 1999 Pneumococcal 0-64 ye ars Vaccine (1 - PCV) Pneumococcal 0-64 years Vaccine (1 - PCV) [employer] Start: 1999 Pneumococcal 0-64 ye ars Vaccine (1 of 2 - PPSV23) Pneumococcal 0-64 years Vaccine (1 of 2 - PPSV23) [employer] Phone: Start: 1994 Varicella vaccine (1 of 2 - 2-dose childhood series) Varicella vaccine (1 of 2 - 2-dose childhood series) [facility] Start: 1993 COVID-19 Vaccine (#1) COVID-19 Vacci ne (#1) [facility] Start: 1993 Hepatitis C screening Hepatitis C sc reejose [employer] Phone: End: 02-09-2021 nonstress test nonstress test OB Routine One Time for 1 Occurrences starting 02/09/2021 until 02/09/2021 [employer] Phone: Comment on above: One Time for 1 Occur rences starting 02/09/2021 until 02/09/2021 End: 02-09-2021 US BIOPHYS PROFILE W NON STRESS US BIOPHYS PROFILE W NON STRESS Imaging Routine Once for 1 Occurrences starting 02/09/2021 until 02/09/2021 [employer] Phone: Comment on above: Once for 1 Occurrenc es starting 02/09/2021 until 02/09/2021 US BIOPHYS PRO FILE W NON STRESS US BIOPHYS PROFILE W NON STRESS Imaging STAT 02/09/2021 7:06 PM EDT [employer] Phone: End: 02-09-2021 US OB 14 PLUS WEEKS SINGLE OR FIRST GESTATION US OB 14 PLUS WEEKS SINGLE OR FIRST GESTATION Imaging STAT Once for 1 Occurrences starting 02/09/2021 until 02/09/2021 [employer] Phone: Comment on above: Once for 1 Occurrenc es starting 02/09/2021 until 02/09/2021 US OB 14 PLUS WEEKS SINGLE OR FIRST GESTATION US OB 14 PLUS WEEKS SINGLE OR FIRST GESTATION Imaging STAT 02/09/2021 7:06 PM EDT [employer] Work Phone: Payers Date Payer Category Payer Unknown 2023 Unknown [id number] 2022 Self-pay 2022 Medicaid [id number] 2020 Unknown [employer] [id number] 2020-Present [phone] [address] [place] [address] [id number] 1993 Unknown [id number] 1993 Unknown [id number] 1993 Unknown [id number] 1993 Unknown [id number] 1993 Unknown [id number] [id number] 1993 Unknown [id number] 1993 Unknown [id number] [id number] 1993 Unknown [id number] 1993 Unknown [id number] Social History Date Type Detail Facility Start: 01-05-2021 End: 02-09-2021 Tobacco smoking status TNIS Current every day smoker [facility]QU[facility] [employer] Start: 01-05-2021 End: 02-09-2021 Tobacco use and exposure Never used [employer] Start: 1995 Sex Assigned At Not on file [email or web address] Phone: Start: 04-24-2022 End: 05-05-2022 Exposure to SARS-CoV-2 (event) Not sure [employer] History of tobacco use Cigarette Smoker [employer] Start: 02-09-2021 Cigarettes smoked current (pack per day) - Reported [employer] Phone: Start: 02-09-2021 End: 05-04-2022 Alcohol intake Ex-drinker (finding) [employer] Phone: Start: 02-09-2021 History SDOH Alcohol Frequency 1 [employer] Phone: Start: 07-01-2020 [employer] Phone: History of Present illness Narrative 02-09-2021 Tracie Coleman APRN - [facility] - 02/09/2021 6:50 PM EDT Note Date & Type Note Facility 02-09-2021 History of Present illness Narrative Out Patient Note: Evelyne is a 25 y.o. 33.6 wks gestation. who is going to be a repeat . 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 Non compliant with care and has only attended 2 OB visits Pt presents saying her belly hurts and legs are swollen. Denies contractions. Denies any leaking of fluid or vaginal bleeding or discharge. No ctx noted, reactive NST. Urine neg. Pt declines tylenol and states it is no longer hurting but states it always hurts in the evenings. We discussed round ligament pain and encouraged her to get a cradle / belly band. Edema is mild and we discussed the need to push fluids, avoid salty foods and elevate her feet in the evenings. VSS Ultrasond done and growth is appropriate. BPP done and 6/8 with no points for breathing. Normal CALLIE, fetus is jenny breech and very active Pt is schedule to see her provider in the am. Enc to keep this appt. Print out of sono measurements sent with pt to share with her provider. Discharged home in stable condition with no complaints. Pt is cheerful and agreeable with plan of care. documented in this encounter [employer] Phone: Hospital Discharge instructions 02-09-2021 Instructions Note Date & Type Note Facility 02-09-2021 Hospital Discharg e instructions Rhiannon Pedersen, MANOHAR - 02/09/[address] Eliza Day CNM Dr. Charity Hobbs CN [address] [facility] [address] [facility] [address] [place] [address] [place] [address] Charity OROPEZA [facility] [address] [facility] [address] [phone] Kayla Wright, MSN, ROOM SERVICE MANAGER, CNM [facility] [address] [facility] [address] [address] [facility] [address] Tracie Coleman CNM [address] [place] [address] [place] [address] Jade Hicks CNM [address] [place] [address] [place] [address] [phone] ACTIVITY LIMITATIONS: ( X )Up and about as desired and tolerated ( )Up to bathroom only ( )Lay on either side ( )Avoid heavy lifting or exercise ( )No sex ( )No nipple stimulation ( )Complet bedrest ( )Avoid using stairs ( )Increase fluids DRINK AT LEAST eight-8oz. Glasses of water daily. Call your Doctor if: ( )Contractions are every 5 minutes apart (from start of one to the start of the next contraction) lasting 60 seconds for at least 1 hour, strong enough you can not walk or talk through the contraction and regular. ( X )Bag of water breaks ( X )Vaginal bleeding ( X )Unusual pain occurs ( X )Decreased movement ( X ) labor: If you have 4 contractions in an hour Keep your scheduled follow up appointment. Or call for a follow up on . IN CASE OF EMERGENCY CONTACT LABOR AND DELIVERY . documented in this encounter [employer] Phone: Evaluation note Note Date & Type Note Facility Evaluation note Diagnosis Dental abscess- Primary Periapical abscess without sinus Dental caries Unspecified dental caries documented in this encounter [employer] Phone: Evaluation note Note Date & Type Note Facility Evaluation note Diagnosis Acute exacerbation of chronic low back pain- Primary Degenerative disc disease, lumbar Degeneration of lumbar or lumbosacral intervertebral disc documented in this encounter [employer] Phone: Hospital Discharge instructions Attachments Note Date & Type Note Facility Hospital Discharge instructions The following attachments cannot be sent through Care Everywhere.Tooth Decay (Citizen Of [place])documented in this encounter [employer] Phone: Hospital Discharge instructions Attachments Note Date & Type Note Facility Hospital Discharge instructions The following attachments cannot be sent through Care Everywhere.Degenerative Disc Disease: General Info (Citizen Of [place])documented in this encounter [employer] Phone: Summary Purpose Family History No Family History Records FoundNo Family History Records FoundNo Family History Records FoundNo Family History Records FoundNo Family History Records Found Advance Directives No Advanced Directives Records FoundNo Advanced Directives Records FoundNo Advanced Directives Records FoundNo Advanced Directives Records FoundNo Advanced Directives Records Found Additional Source Comments Reason for Visit (unrecogniz ed section and content) Reason Comments Dental Pain dental abscess pain top left, 29weeks Abscess Reason Comments Leg Swelling bilat feet/ankle swe lling, feels like heart is racing, lower abdominal pain, 34 weeks , has not been following up with OB provider Reason Comments Leg Swelling Abdominal Pain Reason Comments Back Pain Chronic back pain, k nown L2, L4, L5 stenosis. Ordered Prescriptions (unrec ognized section and content) Prescription Sig Dispensed Refills Start Date End Da te penicillin v potassium (VEETID) 500 MG tablet Take 1 tablet by mouth 4 times daily 40 tablet 0 01/05/2021 Scheduled Active and Recently Administ ered Medications (unrecognized section and content) Medication Order 01/03/2021 01/04/2021 01/05/2021 acetaminophen (TYLENOL) tablet 650 mg (COMPLETED) 650 mg, Oral, ONCE, On Tue01/05/21 at 1815, For 1 dose, Maximum dose of acetaminophen is 4000 mg from all sources in 24 hours. 183 (Given - Provid er: Laura Perez RN) penicillin v potassium (VEETID) tablet 500 mg (COMPLETED) 500 mg, Oral, ONCE, On Tue01/05/21 at 1815, For 1 dose, Tube feeding (TF) interaction, obtain physician order to manage, recommend holding TF for 1 hr before and 2 hrs after dose. 1831 (Given - Provid er: Laura Perez RN) Scheduled Medication Order 02/07/2021 02/08/2021 02/09/2021 acetaminophen (TYLENOL) tablet 1,000 mg 1,000 mg, Oral, ONCE, On Tue02/09/21 at 1800, For 1 dose, Maximum dose of acetaminophen is 4000 mg from all sources in 24 hours. 182 (Not Given - Pr ovider: Hannah Barker RN - Reason: Patient/family refused) Scheduled Medication Order 05/02/2022 05/03/2022 05/04/2022 dexamethasone (DECADRON) injection 10 mg (COMPLETED) 10 mg, Other, ONCE, On Tue05/04/22 at 2315, For 1 dose, Please give by IM route 6 (Given - Provid er: Charisse Gill RN) ketorolac (TORADOL) injection 30 mg (COMPLETED) Ketorolac is contraindicated in patients with advanced renal impairment and in patients at risk of renal failure due to volume depletion. For 65 years of age and older OR weight less than 50 kg, use 15 mg IV every 6 hours; MAX dose: 60 mg/day. Dose greater than 30 mg must be administered via intramuscular route. Do not administer for more than 5 days., 30 mg, IntraMUSCular, ONCE, 1 dose, On Tue05/04/22 at 2315, Do not administer for more than 5 days. 2315 (Given - Provid er: Charisse Gill RN) Care Teams (unrecognized sec tion and content) Desk Maker Relationship Specialty Start Date End Date Sr Misbah Gamble David, DO [address] [place] [address] PCP - General Family Medicine 01/05/21 INFORMATION SOURCE (unrecogn ized section and content) DATE CREATED AUTHOR 10/09/2022 [facility] DATE CREATED AUTHOR AUTHOR'S ORGANIZ ATION 04/02/2023 [facility] DATE CREATED AUTHOR AUTHOR'S ORGANIZ ATION 06/09/2023 [facility] DATE CREATED AUTHOR AUTHOR'S ORGANIZ ATION 08/02/2023 [facility] DATE CREATED AUTHOR AUTHOR'S ORGANIZ ATION 08/06/2023 [facility] FOR RECORDS PERTAINING TO PATIENTS WHO ARE OR HAVE BEEN ENROLLED IN A CHEMICAL DEPENDENCY/SUBSTANCEABUSE PROGRAM, SOME INFORMATION MAY BE OMITTED. This clinical summary was aggregated from multiple sources. Caution should be exercised in using it in the provision of clinical care. This summary normalizes information from multiple sources, and as a consequence, information in this document may materially change the coding, format and clinical context of patient data. In addition, data may be omitted in some cases. CLINICAL DECISIONS SHOULD BE BASED ON THE PRIMARY CLINICAL RECORDS. [employer] provides no warranty or guarantee of the accuracy or completeness of information in this document.
[2023-09-09] MEDS: KETOROLAC TROMETHAMINE 30 MG/ML VIAL IM (08:51)
== END 2023-09-09 08:53 | disposition home or self-care (01) ==
PROVIDERS: Emergency Provider Emergency Medicine
DX: M54.16 Radiculopathy, lumbar region (principal); M54.41 Lumbago with sciatica, right side; E66.9 Obesity, unspecified; Z68.42 Body mass index [BMI] 45.0-49.9, adult
CPT/HCPCS: 96372; 99284; J1885

== ENCOUNTER 2024-05-28 19:54 | Emergency (ER) | payer OTHER, SELFPAY ==
--- OUTSIDE RECORDS SUMMARY | 2024-05-28 20:05 | XMS_ITS | CCD ---
Author Organization [facility] Care Team Providers Care Food Analyst Name Role Phone Tai NAVARRO, Sr Misbah Hernandez Primary Care Provider GAMA CALLE Attending Unavailable GAMA CALLE Admitting [facility]available [facility] RODRIGUEZ Primary Care Unavailable Opal Cuevas CNP Attending Unavailable Brad OROPEZA, Christian Figueredo Referring [facility], [facility] Primary Care Anand Guillaume DO Attending Unavaila codey [place] , [facility] Jesu Brannon PA-C, Ambar Saini Attending Unavailgina Salinas MD, Christian Figueredo Attending [facility], [facility] [place] , [facility] Meeta Emmanuel MD Attending Unavailable MIGNON OVIEDO Attending Unavailable GIGI MALDONADO Primary Care Unavailable GIGI MALDONADO Primary Care Unavailable GIGI MALDONADO Primary Care Unavailable ROSSANA GALLAGHER Attending Unavailable GIGI MALDONADO Primary Care Unavailable JOELGIGI PARR Primary Care Unavailable GIGI MALDONADO Referring Unavailable Sebastian GARCIA~[id number] PREET Attending Unavailable GIGI MALDONADO Primary Care Unavailable IVÁN BOLTON Attending Unavailable GIGI MALDONADO Primary Care Unavailable GIIG MALDONADO Primary Care Unavailable MISBAH GAMBLE SR Primary Care Unavailable RAMONA VIDALES Consulting Unavailable RAMONA VIDALES Attending Unavailable MARY CRAWLEY Attending Unavailable GIGI MALDONADO Primary Care Unavailable GIGI MALDONADO Primary Care Unavailable LAWANDA BESS Attending Unavailable LAWANDA BESS Referring Unavailable GIGI MALDONADO Primary Care Unavailable JOELGIGI PARR Primary Care Unavailable PETERSON AGOSTO Attending Unavailable GIGI MALDONADO Primary Care Unavailable ANGI KATZ Attending Unavailable GIGI MALDONADO Primary Care Unavailable PETERSON AGOSTO Attending Unavailable GIGI MALDONADO Primary Care Unavailable MARILUZ PACHECO Attending Unavailable Allergies Allergy Classification Reported Allergen(s) Allergy Type Date of Onset Reaction(s) Facility (2 sources) Cinnamon Preparation; Translations: [CINNAMON] Drug Allergy 04-23-2023 [...] in other specified circumstances] Onset: 05-10-2023 Episodic Asthma (2 sources) Unspecified asthma with (acute) exacerbation; Translations: [Severe persistent asthma with status asthmaticus] Onset: 04-23-2023 Chronic Diseases of mouth; excluding dental (1 source) Sialoadenitis, unspecified; Translations: [Sialoadenitis, unspecified] Onset: 06-27-2023 Episodic Headache; including migraine (1 source) Headache; including migraine; Translations: [Headache, unspecified] Onset: 06-26-2023 Other connective tissue disease (1 source) Other muscle spasm; Translations: [Other muscle spasm] Onset: 04-17-2024 Episodic Other nervous system disorders (1 source) Other chronic pain; Translations: [Other chronic pain] Onset: 04-17-2024 Chronic Other non-traumatic joint disorders (1 source) Ankle pain Onset: 05-24-2024 Episodic Other screening for suspected conditions (not mental [...] [Other intervertebral disc degeneration, lumbar region] Chronic Spondylosis; intervertebral disc disorders; other back problems (6 sources) Chronic low back pain; Translations: [Acute exacerbation of chronic low back pain] Onset: 02-17-2023 Episodic Sprains and strains (1 source) Sprain of unspecified ligament of right ankle, initial encounter; Translations: [Sprain of unspecified ligament of right ankle, initial encounter] Onset: 05-24-2024 Episodic Superficial injury; contusion (3 sources) Contusion of right knee, initial encounter; Translations: [Contusion of right foot, initial encounter] Onset: 05-24-2024 Episodic Unclassified (1 source) Low back pain, unspecified; Translations: [Low back pain, unspecified] Onset: 04-17-2024 Unclassified (1 source) Mouth Pain Onset: 12-02-2023 Unclassified (1 source) dr sent over, shortness of breath Onset: 10-31-2023 Past or Other Problems Problem Classification Problem Date Documented Da te Episodic/Chronic Disorders of teeth and jaw (10 sources) Dental abscess; Translations: [Periapical abscess without sinus] Onset: 06-08-2023 Episodic Other lower respiratory disease (1 source) Shortness of breath Onset: 10-31-2023 Episodic Other upper respiratory infections (1 source) Acute upper respiratory infection, unspecified; Translations: [Acute upper respiratory infection, unspecified] Onset: 10-31-2023 Episodic Results Test Name Value Interpretation Reference Range Facility XR ANKLE RT MIN 3 VWSon 10-2 XR ANKLE RT MIN 3 VWS XR ANKLE RT MIN 3 VWS XR ANKLE RT MIN 3 VWS HISTORY: trauma. A pain COMPARISON: none IMPRESSION: 1. No acute fracture or dislocation. Symmetric ankle mortise. Finalized by Pedro Winters MD on 05/24/2024 9:02 PM Normal [facility] XR FOOT RT MIN 3 VWSon 05-24 XR FOOT RT MIN 3 VWS XR FOOT RT MIN 3 VW S XR FOOT RT MIN 3 VWS HISTORY: trauma. Foot pain COMPARISON: none IMPRESSION: 1. No acute fracture or dislocation. Finalized by Pedro Winters MD on 05/24/2024 9:03 PM Normal [facility] XR KNEE RT 3 VWSon XR KNEE RT 3 VWS XR KNEE RT 3 VWS XR KNEE RT 3 VWS HISTORY: trauma. Knee pain. COMPARISON: none IMPRESSION: 1. No acute fracture or dislocation. Knee effusion. Mild pretibial soft tissue thickening. Finalized by Pedro Winters MD on 05/24/2024 9:03 PM Normal [facility] XR CHEST 1 VWon 10-31-2023 XR CHEST 1 VW XR CHEST 1 VW Single view chest History: Cough Comparison: X-ray 04/23/2023 Findings: Single portable view of the chest. Cardiomediastinal silhouette and pulmonary vasculature are within normal limits. Lungs and pleural space are clear. There is no pleural effusion or pneumothorax. Impression: No acute cardiopulmonary process. Finalized by Adraino Alcala on 10/31/2023 12:55 PM Normal [facility] CBC with Diffon 06-27-2023 Abs. Basophil 0.06 k/uL Normal 0.00-0.20 [facility] Comment on above: Performed By: #### C DP, CP #### [address] [place] [address] Wheel [employer] Caster Repairer: Jarod Bernardo MD Abs.Imm.Granulocyte 0.03 k/uL Normal 0.00-0.30 [facility] Comment on above: Performed By: #### C DP, CP #### [address] [place] [address] Wheel [employer] C[employer] Repairer: Jarod Bernardo MD Abs.Neutrophil (Seg) 6.24 k/uL Normal 1.50-8.10 [facility] Comment on above: Performed By: #### C DP, CP #### [address] [place] [address] [employer] Repairer: Jarod Bernardo MD Basophils/100 WBC (Bld) 1 % Normal 0-2 [facility] Comment on above: Performed By: #### C DP, CP #### [address] [place] [address] [employer] Repairer: Jarod Bernardo MD Eosinophils (Bld) [#/Vol] 0.10 10*3/uL Normal 0.00-0.44 [facility] Comment on above: Performed By: #### C DP, CP #### [address] [place] [address] [employer] Repairer: Jarod Bernardo MD Eosinophils/100 WBC (Bld) 1 % Normal 1-4 [facility] Comment on above: Performed By: #### C DP, CP #### [address] [place] [address] [employer] Repairer: Jarod Bernardo MD Erythrocyte distribution width (RBC) [Ratio] 15.7 % High 11.8-14.4 [facility] Comment on above: Performed By: #### C DP, CP #### [address] [place], [facility]83 [employer] Repairer: Jarod Bernardo MD Hematocrit (Bld) [Volume fraction] 38.2 % Normal 36.3-47.1 [facility] Comment on above: Performed By: #### C DP, CP #### [facility] [address] [place], [facility]83 [employer] Repairer: Jarod Bernardo MD Hemoglobin (Bld) [Mass/Vol] 11.8 g/dL Low 11.9-15.1 [facility] Comment on above: Performed By: #### C DP, CP #### [address] [place] [address] [employer] Repairer: Jarod Bernardo MD Immature granulocytes/100 WBC (Bld) 0 % Normal 0 [facility] Comment on above: Performed By: #### C DP, CP #### [facility] [address] [place] [address] Dr. [place], [facility]83 [employer] Repairer: Jarod Bernardo MD Lymphocytes (Bld) [#/Vol] 1.20 10*3/uL Normal 1.10-3.70 [facility] Comment on above: Performed By: #### C DP, CP #### [address] [place], [facility]83 [employer] Repairer: Jarod Bernardo MD Lymphocytes/100 WBC (Bld) 14 % Low 24-43 [facility] Comment on above: Performed By: #### C DP, CP #### [facility] [address] [place] [address] Dr. [place], [facility]83 [employer] Repairer: Jarod Bernardo MD MCH (RBC) [Entitic mass] 26.2 pg Normal 25.2-33.5 [facility] Comment on above: Performed By: #### C DP, CP #### [facility] [address] [place] [address] Dr. [place], [facility]83 [employer] Repairer: Jarod Bernardo MD MCHC (RBC) [Mass/Vol] 30.9 g/dL Normal 28.4-34.8 [facility] Comment on above: Performed By: #### C DP, CP #### [facility] [address] [place], [place] [address] [employer] Repairer: Jarod Bernardo MD MCV (RBC) [Entitic vol] 84.9 fL Normal 82.6-102.9 [facility] Comment on above: Performed By: #### C DP, CP #### [facility] [address] [place], [place] [address] [employer] Repairer: Jarod Bernardo MD Monocytes (Bld) [#/Vol] 0.70 10*3/uL Normal 0.10-1.20 [facility] Comment on above: Performed By: #### C DP, CP #### [address] [place], [place] [address] [employer] Repairer: Jarod Bernardo MD Monocytes/100 WBC (Bld) 8 % Normal 3-12 [facility] Comment on above: Performed By: #### C DP, CP #### [address] [place], [place] [address] [employer] Repairer: Jarod Bernardo MD Neutrophil (Seg) 76 % High 36-65 [facility] Comment on above: Performed By: #### C DP, CP #### [address] [place], [place] [address] [employer] Repairer: Jarod Bernardo MD NRBC Automated 0.0 per 100 WBC Normal 0.0 [facility] Comment on above: Performed By: #### C DP, CP #### [address] [place], [place] [address] [employer] Repairer: Jarod Bernardo MD Platelet mean volume (Bld) [Entitic vol] 9.7 fL Normal 8.1-13.5 [facility] Comment on above: Performed By: #### C DP, CP #### [facility] [address] [place] [address] [employer] Repairer: Jarod Bernardo MD Platelets (Bld) [#/Vol] 295 10*3/uL Normal 138-453 [facility] Comment on above: Performed By: #### C DP, CP #### [facility] [address] [place] [address] [employer] Repairer: Jarod Bernardo MD RBC (Bld) [#/Vol] 4.50 10*6/uL Normal 3.95-5.11 [facility] Comment on above: Performed By: #### C DP, CP #### [facility] [address] [place], [place] [id number] [employer] Repairer: Jarod Bernardo MD WBC (Bld) [#/Vol] 8.3 10*3/uL Normal 3.5-11.3 [facility] Comment on above: Performed By: #### C DP, CP #### [facility] [address] [place], [place] [id number] [employer] Repairer: Jarod Bernardo MD CT SOFT TISSUE NECK W DAXA STojose 06-27-2023 CT SOFT TISSUE NECK W [...] Miah Boo MD 06/27/23 Final result Normal [facility] Comp Metabolic Profon 2022 Albumin [Mass/Vol] 4.0 g/dL Normal 3.5-5.2 [facility] Comment on above: Performed By: #### C LIZZETTE, CP #### [facility] [address] [place] [address] [employer] Repairer: Jarod Bernardo MD Albumin/Glob Ratio 1.6 Normal 1.0-2.5 [facility] Comment on above: Performed By: #### C LIZZETTE, CP #### [facility] [address] [place] [address] [employer] Repairer: Jarod Bernardo MD Alkaline Phos 93 U/L Normal 35-104 [facility] Comment on above: Performed By: #### C DP, CP #### [facility] [address] [place], [place] [id number] [employer] Repairer: Jarod Bernardo MD ALT [Catalytic activity/Vol] 23 U/L Normal 5-33 [facility] Comment on above: Performed By: #### C DP, CP #### [facility] [address] [place], [place] [id number] [employer] Repairer: Jarod Bernardo MD Anion gap [Moles/Vol] 14 mmol/L Normal 9-17 [facility] Comment on above: Performed By: #### C DP, CP #### [facility] [address] [place], [place] [address]183 [employer] Repairer: Jarod Bernardo MD AST [Catalytic activity/Vol] 20 U/L Normal <32 [facility] Comment on above: Performed By: #### C DP, CP #### [facility] [address] [place], [place] [address]483 [employer] Repairer: Jarod Bernardo MD Bilirubin [Mass/Vol] 0.3 mg/dL Normal 0.3-1.2 [facility] Comment on above: Performed By: #### C DP, CP #### [facility] [address] [place], [place] [address]83 [employer] Repairer: Jarod Bernardo MD BUN/CRE Ratio 15 Normal 9-20 [facility] Comment on above: Performed By: #### C DP, CP #### [facility] [address] [place], [place] [address]83 [employer] Repairer: Jarod Bernardo MD Calcium [Mass/Vol] 8.9 mg/dL Normal 8.6-10.4 [facility] Comment on above: Performed By: #### C DP, CP #### [facility] [address] [place], [place] [address]83 [employer] Repairer: Jarod Bernardo MD Chloride [Moles/Vol] 102 mmol/L Normal 98-107 [facility] Comment on above: Performed By: #### C DP, CP #### [facility] [address] [place] [id number] [employer] Repairer: Jarod Bernardo MD CO2 [Moles/Vol] 21 mmol/L Normal 20-31 [facility] Comment on above: Performed By: #### C DP, CP #### [facility] [address] [place] [id number] [employer] Repairer: Jarod Bernardo MD Creatinine [Mass/Vol] 0.6 mg/dL Normal 0.5-0.9 [facility] Comment on above: Performed By: #### C DP, CP #### [facility] [address] [place] [id number] [employer] Repairer: Jarod Bernardo MD GFR/1.73 sq M.predicted among non-blacks MDRD (S/P/Bld) [Vol rate/Area] mL/min/{1.73_m2} Normal >60 [facility] Comment on above: Result Comment: These results [...] Performed By: #### C DP, CP #### [facility] [address] [place], [place] [address]83 [employer] Repairer: Jarod Bernardo MD Glucose [Mass/Vol] 107 mg/dL High 70-99 [facility] Comment on above: Performed By: #### C DP, CP #### [facility] [address] [place] [id number] [employer] Repairer: Jarod Bernardo MD Potassium [Moles/Vol] 3.6 mmol/L Low 3.7-5.3 [facility] Comment on above: Performed By: #### C DP, CP #### [address] [place], [place] [address]83 [employer] Repairer: Jarod Bernardo MD Protein [Mass/Vol] 6.5 g/dL Normal 6.4-8.3 [facility] Comment on above: Performed By: #### C DP, CP #### [address] [place] [address] [employer] Repairer: Jarod Bernardo MD Sodium [Moles/Vol] 137 mmol/L Normal 135-144 [facility] Comment on above: Performed By: #### C DP, CP #### [address] [place] [address] [employer] Repairer: Jarod Bernardo MD Urea nitrogen [Mass/Vol] 9 mg/dL Normal 6-20 [facility] Comment on above: Performed By: #### C DP, CP #### [address] [place], [place] [id number] [employer] Repairer: Jarod Bernardo MD CBC with Diffon 05-10-2023 Abs. Basophil 0.04 k/uL Normal 0.00-0.20 [facility] Comment on above: Performed By: #### C LIZZETTE, CMPF #### [address] [place] [address] [employer] Repairer: Jarod Bernardo MD Abs.Imm.Granulocyte 0.06 k/uL Normal 0.00-0.30 [facility] Comment on above: Performed By: #### C DP, CMPF #### [address] [place] [address] [employer] Repairer: Jarod Bernardo MD Abs.Neutrophil (Seg) 5.10 k/uL Normal 1.50-8.10 [facility] Comment on above: Performed By: #### C DP, CMPF #### [facility] [address] [place] [address] Dr[place], [place] [address] [employer] Repairer: Jarod Bernardo MD Basophils/100 WBC (Bld) 1 % Normal 0-2 [facility] Comment on above: Performed By: #### C DP, CMPF #### [address] [place], [place] [address] [employer] Repairer: Jarod Bernardo MD Eosinophils (Bld) [#/Vol] 0.12 10*3/uL Normal 0.00-0.44 [facility] Comment on above: Performed By: #### C DP, CMPF #### [address] [place] [address] [employer] Repairer: Jarod Bernardo MD Eosinophils/100 WBC (Bld) 2 % Normal 1-4 [facility] Comment on above: Performed By: #### C DP, CMPF #### [address] [place], [place] [address] [employer] Repairer: Jarod Bernardo MD Erythrocyte distribution width (RBC) [Ratio] 15.4 % High 11.8-14.4 [facility] Comment on above: Performed By: #### C DP, CMPF #### [address] [place], [place] [address] [employer] Repairer: Jarod Bernardo MD Hematocrit (Bld) [Volume fraction] 37.3 % Normal 36.3-47.1 [facility] Comment on above: Performed By: #### C DP, CMPF #### [address] [place], [facility]83 [employer] Repairer: Jarod Bernardo MD Hemoglobin (Bld) [Mass/Vol] 11.3 g/dL Low 11.9-15.1 [facility] Comment on above: Performed By: #### C DP, CMPF #### [facility] [address] [place], [place] [address] [employer]airer: Jarod Bernardo MD Immature granulocytes/100 WBC (Bld) 1 % High 0 [facility] Comment on above: Performed By: #### C DP, CMPF #### [address] [place], [facility]83 [employer] Repairer: Jarod Bernardo MD Lymphocytes (Bld) [#/Vol] 2.00 10*3/uL Normal 1.10-3.70 [facility] Comment on above: Performed By: #### C DP, CMPF #### [address] [place], [facility]83 [employer] Repairer: Jarod Bernardo MD Lymphocytes/100 WBC (Bld) 25 % Normal 24-43 [facility] Comment on above: Performed By: #### C DP, CMPF #### [address] [place], [facility]83 [employer]airer: Jarod Bernardo MD MCH (RBC) [Entitic mass] 26.3 pg Normal 25.2-33.5 [facility] Comment on above: Performed By: #### C DP, CMPF #### [address] [place], [facility]83 [employer] Repairer: Jarod Bernardo MD MCHC (RBC) [Mass/Vol] 30.3 g/dL Normal 28.4-34.8 [facility] Comment on above: Performed By: #### C DP, CMPF #### [address] [place] [address] [employer] Repairer: Jarod Bernardo MD MCV (RBC) [Entitic vol] 86.9 fL Normal 82.6-102.9 [facility] Comment on above: Performed By: #### C DP, CMPF #### [address] [place], [place] [address] [employer]airer: Jarod Bernardo MD Monocytes (Bld) [#/Vol] 0.55 10*3/uL Normal 0.10-1.20 [facility] Comment on above: Performed By: #### C DP, CMPF #### [address] [place], [place] [address]83 [employer] Repairer: Jarod Bernardo MD Monocytes/100 WBC (Bld) 7 % Normal 3-12 [facility] Comment on above: Performed By: #### C DP, CMPF #### [address] [place], [place] [address] [employer] Repairer: Jarod Bernardo MD Neutrophil (Seg) 64 % Normal 36-65 [facility] Comment on above: Performed By: #### C DP, CMPF #### [address] [place], [facility]83 [employer] Repairer: Jarod Bernardo MD NRBC Automated 0.0 per 100 WBC Normal 0.0 [facility] Comment on above: Performed By: #### C DP, CMPF #### [address] [place], [facility]83 [employer] Repairer: Jarod Bernardo MD Platelet mean volume (Bld) [Entitic vol] 9.3 fL Normal 8.1-13.5 [facility] Comment on above: Performed By: #### C DP, CMPF #### [address] [place], [place] [address]360383 [employer]airer: Jarod Bernardo MD Platelets (Bld) [#/Vol] 395 10*3/uL Normal 138-453 [facility] Comment on above: Performed By: #### C DP, CMPF #### [address] [place], [place] [address] [employer] Repairer: Jarod Bernardo MD RBC (Bld) [#/Vol] 4.29 10*6/uL Normal 3.95-5.11 [facility] Comment on above: Performed By: #### C DP, CMPF #### [facility] [address] [place], [place] [id number] [employer] Repairer: Jarod Bernardo MD WBC (Bld) [#/Vol] 7.9 10*3/uL Normal 3.5-11.3 [facility] Comment on above: Performed By: #### C DP, CMPF #### [facility] [address] [place] [address] [place] [address] [employer] Repairer: Jarod Bernardo MD Comp Metabol,[facility] 05-10 Albumin [Mass/Vol] 4.2 g/dL Normal 3.5-5.2 [facility] Comment on above: Performed By: #### C DP, CMPF #### [address] [place] [address] [employer] Repairer: Jarod Bernardo MD Albumin/Glob Ratio 1.4 Normal 1.0-2.5 [facility] Comment on above: Performed By: #### C DP, CMPF #### [address] [place] [address] [employer] Repairer: Jarod Bernardo MD Alkaline Phos 69 U/L Normal 35-104 [facility] Comment on above: Performed By: #### C DP, CMPF #### [facility] [address] [place] [address] [place] [address] [employer] Repairer: Jarod Bernardo MD ALT [Catalytic activity/Vol] 18 U/L Normal 5-33 [facility] Comment on above: Performed By: #### C DP, CMPF #### [address] [place], [place] [address]83 [employer] Repairer: Jarod Bernardo MD Anion gap [Moles/Vol] 10 mmol/L Normal 9-17 [facility] Comment on above: Performed By: #### C DP, CMPF #### [facility] [address] [place], [place] [address] [employer] Repairer: Jarod Beranrdo MD AST [Catalytic activity/Vol] 16 U/L Normal <32 [facility] Comment on above: Performed By: #### C DP, CMPF #### [facility] [address] [place], [place] [id number] [employer] Repairer: Jarod Bernardo MD Bilirubin [Mass/Vol] 0.4 mg/dL Normal 0.3-1.2 [facility] Comment on above: Performed By: #### C DP, CMPF #### [facility] [address] [place], [place] [id number] [employer] Repairer: Jarod Bernardo MD BUN/CRE Ratio 16 Normal 9-20 [facility] Comment on above: Performed By: #### C DP, CMPF #### [facility] [address] [place], [place] [address]283 [employer] Repairer: Jarod Bernardo MD Calcium [Mass/Vol] 9.0 mg/dL Normal 8.6-10.4 [facility] Comment on above: Performed By: #### C DP, CMPF #### [facility] [address] [place], [place] [address]83 [employer] Repairer: Jarod Bernardo MD Chloride [Moles/Vol] 106 mmol/L Normal 98-107 [facility] Comment on above: Performed By: #### C DP, CMPF #### [facility] [address] [place], [place] [address] [employer]airer: Jarod Bernardo MD CO2 [Moles/Vol] 23 mmol/L Normal 20-31 [facility] Comment on above: Performed By: #### C DP, CMPF #### [facility] [address] [place], [place] [address] [employer] Repairer: Jarod Bernardo MD Creatinine [Mass/Vol] 0.5 mg/dL Normal 0.5-0.9 [facility] Comment on above: Performed By: #### C LIZZETTE, CMPF #### [facility] [facility] [address] [place] [address] [employer] Repairer: Jarod Bernardo MD GFR/1.73 sq M.predicted among non-blacks MDRD (S/P/Bld) [Vol rate/Area] mL/min/{1.73_m2} Normal >60 [facility] Comment on above: Result Comment: These results [...] Performed By: #### C DP, CMPF #### [facility] [address] [place] [address] [place] [address] [employer] Repairer: Jarod Bernardo MD Glucose [Mass/Vol] 99 mg/dL Normal 70-99 [facility] Comment on above: Performed By: #### C DP, CMPF #### [address] [place], [place] [id number] [employer]aster Repairer: Jarod Bernardo MD Potassium [Moles/Vol] 4.1 mmol/L Normal 3.7-5.3 [facility] Comment on above: Performed By: #### C DP, CMPF #### [facility] [address] [place] [address] [employer] Repairer: Jarod Bernardo MD Protein [Mass/Vol] 7.2 g/dL Normal 6.4-8.3 [facility] Comment on above: Performed By: #### C DP, CMPF #### [facility] [address] [place] [address] [employer] Caster Repairer: Jarod Bernardo MD Sodium [Moles/Vol] 139 mmol/L Normal 135-144 [facility] Comment on above: Performed By: #### C LIZZETTE, CMPF #### [facility] [address] [place], [place] [id number] [employer] Repairer: Jarod Bernardo MD Urea nitrogen [Mass/Vol] 8 mg/dL Normal 6-20 [facility] Comment on above: Performed By: #### C LIZZETTE, CMPF #### [facility] [address] [place], [place] [id number] [employer] Repairer: Jarod Bernardo MD Lipid Profileon 05-10-2023 Cholesterol [Mass/Vol] 225 mg/dL High 0-199 [facility] Comment on above: Result Comment: Cholesterol Guidelines: <200 Desirable 200-240 Borderline >240 Undesirable Performed By: #### L IPR #### [address] [address] Wheel And Caster Repairer: Italo English MD Cholesterol in HDL [Mass/Vol] 56 mg/dL Normal >40 [facility] Comment on above: Result Comment: HDL Guidelines: <40 Undesirable 40-59 Borderline >59 Desirable Performed By: #### L IPR #### [address] [address] [employer] And Caster Repairer: Italo English MD Cholesterol in LDL [Mass/Vol] 137 mg/dL High 0-100 [facility] Comment on above: Result Comment: LDL Guidelines: <100 Desirable 100-129 Near to/above Desirable 130-159 Borderline >159 Undesirable Direct (measured) LDL and calculated LDL are not interchangeable tests. Performed By: #### L IPR #### [address] [address] Wheel And Caster Repairer: Italo English MD Cholesterol in VLDL [Mass/Vol] 33 mg/dL Normal [facility] Comment on above: Performed By: #### L IPR #### [address] [id number] Wheel [employer] Caster Repairer: Italo English MD Cholesterol.total/Chol esterol in HDL [Mass ratio] 4.0 {ratio} Normal [facility] Comment on above: Performed By: #### L IPR #### [facility] [address] [place], [place] [id number] Wheel [employer] Caster Repairer: Italo English MD Triglyceride [Mass/Vol] 163 mg/dL High 0-149 [facility] Comment on above: Result Comment: Triglyceride Guidelines: <150 Desirable 150-199 Borderline 200-499 High >499 Very high Based on AHA Guidelines for fasting triglyceride, May 2012. Performed By: #### L IPR #### [facility] [employer] [address] [place] [address] Wheel And Caster Repairer: Italo English MD .eGFRon 04-17-2023 GFR/1.73 sq M.predicted MDRD (S/P/Bld) [Vol rate/Area] mL/min/{1.73_m2} Normal >=60 [facility] Comment on above: Order Comment: Order added by Discern rule Result Comment: [facility] Laboratories have implemented the eGFR calculation approach [...] Performed By: #### . Automated Diff #### [address] [address] AMI Initon 04-17-2023 Initial Myoglobin 20.5 ng/mL Normal 14.3-65.8 [facility] Comment on above: Performed By: #### A MI1 ####[address] [address] Initial Troponin <0.03 Normal 0.00-0.[address] [facility] Comment on above: Result Comment: An i ncreased Troponin-I value, in the absence of myocardial ischemia, may indicate other etiologies of cardiac damage. Performed By: #### A MI1 ####[address] [address] Basic Metabolic Profileon Creatinine [Mass/Vol] 0.75 mg/dL Normal 0.44-1.03 [facility] Comment on above: Performed By: #### A MI2 #### [address] [address] Urea nitrogen [Mass/Vol] 7 mg/dL Low 8-26 [facility] Comment on above: Performed By: #### A MI2 #### [address] [address] Urea nitrogen/Creatinine [Mass ratio] 9.3 mg/mg Low 10.0-20.0 [facility] Comment on above: Performed By: #### A MI2 #### [address] [address] Anion gap [Moles/Vol] 12 mmol/L Normal 7-17 [facility] Comment on above: Performed By: #### A MI2 #### [address] [address] Calcium [Mass/Vol] 9.4 mg/dL Normal 8.5-10.3 [facility] Comment on above: Performed By: #### A MI2 #### [address] [address] Chloride [Moles/Vol] 109 mmol/L Normal 98-110 [facility] Comment on above: Performed By: #### A MI2 #### [address] [address] CO2 [Moles/Vol] 21 mmol/L Low 22-32 [facility] Comment on above: Performed By: #### A MI2 #### [address] [address] Glucose [Mass/Vol] 106 mg/dL High 70-99 [facility] Comment on above: Performed By: #### A MI2 #### [address] [address] Potassium [Moles/Vol] 3.7 mmol/L Normal 3.4-4.8 [facility] Comment on above: Performed By: #### A MI2 #### [address] [address] Sodium [Moles/Vol] 138 mmol/L Normal 133-142 [facility] Comment on above: Performed By: #### A MI2 #### [address] [address] CBC w/ Diffon 04-17-2023 Erythrocyte distribution width (RBC) [Ratio] 16.1 % High 11.6-14.8 [facility] Comment on above: Performed By: #### . Automated Diff #### [address] [address] Hematocrit (Bld) [Volume fraction] 39.7 % Normal 36.0-46.0 [facility] Comment on above: Performed By: #### . Automated Diff #### [address] [address] Hemoglobin (Bld) [Mass/Vol] 13.0 g/dL Normal 12.0-16.0 [facility] Comment on above: Performed By: #### . Automated Diff #### [address] [address] MCH (RBC) [Entitic mass] 26.9 pg Low 27.0-35.0 [facility] Comment on above: Performed By: #### . Automated Diff #### [address] [address] MCHC 32.8 % Normal 31.0-37.0 [facility] Comment on above: Performed By: #### . Automated Diff #### [address] [address] MCV (RBC) [Entitic vol] 82.3 fL Normal 80.0-100.0 [facility] Comment on above: Performed By: #### . Automated Diff #### [place] [id number] Platelet 357 x10*3/mcL Normal 150-450 [facility] Comment on above: Performed By: #### . Automated Diff #### [place] [id number] Platelet mean volume (Bld) [Entitic vol] 8.2 fL Normal 6.7-10.6 [facility] Comment on above: Performed By: #### . Automated Diff #### [place] [id number] RBC 4.83 x10*6/mcL Normal 3.80-5.20 [facility] Comment on above: Performed By: #### . Automated Diff #### [place] [id number] WBC 11.7 x10*3/mcL High 4.5-11.0 [facility] Comment on above: Performed By: #### . Automated Diff #### [place] [id number] COV19 Rapidon 04-17-2023 LAB ONLY Result Called? No Normal [facility] Comment on above: Performed By: #### C [id number] #### [place] [id number] Reason for Rapid Test COVID Exposure Normal [facility] Comment on above: Performed By: #### C [id number] #### [place] [id number] SARS-CoV-2 (COVID-19) RNA OLEGARIO+probe Ql (Unsp spec) Negative Normal Negative [facility] Comment on above: Result Comment: The 2019 [...] using the ID NOW COVID-19 test by [employer], which has received Emergency Use Authorization (EUA) by the U.S. Food and Drug Administration. The [place] ID NOW COVID-19 test performs best when [...] following links: Fact Sheet for HealthCare Providers: https://www.fda.gov/media/355505/download Fact Sheet for Patients: https://www.fda.gov/media/034882/download Performed By: #### C [id number] #### [address] [place] [address] D-Dimeron 04-17-2023 D-Dimer 0.27 mg/L feu Normal 0.00-0.49 [facility] Comment on above: Result Comment: Resu lts of the D-Dimer test should always be interpreted in conjunction with the patient's medical history, clinical presentation, and other findings. Results <0.5 mg/L are considered NEGATIVE for VTE. Results >= 0.5 mg/L require further clinical evaluation. Levels of triglyceride up to 600 mg/dl do not interfere with this D-Dimer assay. Performed By: #### D GAYLA ####[address] [address] Diff Autoon 04-17-2023 Baso Absolute 0.1 x10*3/mcL Normal 0.0-0.[address] [facility] Comment on above: Performed By: #### . Automated Diff #### [address] [address] Basophils/100 WBC (Bld) 1.0 % Normal 0.0-1.5 [facility] Comment on above: Performed By: #### . Automated Diff #### [address] [address] Eos Absolute 0.1 x10*3/mcL Normal 0.0-0.4 [facility] Comment on above: Performed By: #### . Automated Diff #### [address] [address] Eosinophils/100 WBC (Bld) 1.0 % Normal 0.0-5.4 [facility] Comment on above: Performed By: #### . Automated Diff #### [address] [address] Lymph Absolute 2.0 x10*3/mcL Normal 1.0-4.8 [facility] Comment on above: Performed By: #### . Automated Diff #### [address] [address] Lymphocytes/100 WBC (Bld) 17.5 % Low 27.2-40.8 [facility] Comment on above: Performed By: #### . Automated Diff #### [address] [address] Early Absolute 0.9 x10*3/mcL Normal 0.1-1.[address] [facility] Comment on above: Performed By: #### . Automated Diff #### [address] [address] Monocytes/100 WBC (Bld) 7.7 % Normal 3.7-11.9 [facility] Comment on above: Performed By: #### . Automated Diff #### [address] [address] Neutro Absolute 8.5 x10*3/mcL High 1.8-7.7 [facility] Comment on above: Performed By: #### . Automated Diff #### [address] [address] Neutro Auto 72.8 % High 47.2-70.8 [facility] Comment on above: Performed By: #### . Automated Diff #### [address] [address] ED Clinical Summaryon 2022 ED Clinical Summary [address] [address] ED Clinical Summary Person Information Name: Evelyne Allen/Magdalena Age: 28 Years : 1995 Sex: Female PCP: Misbah Gamble DO Marital Status: Single Phone: Race: White Ethnicity: Not or Language: Eritrean Visit Reason: Cough; Shortness of breath; shortness of breath Acuity: 3 Enc Type: Emergency Med Service: Emergency Medicine Arrival: 04/17/2023 09:54:08 Discharge: 04/17/2023 13:11:00 LOS: 000 03:17 Checkin: 04/17/2023 09:54:08 Checkout: 04/17/2023 13:11:00 Dispo Type: Home or Self Care Address: [address] [id number] Provider Notes: History of Present Illness Patient [...] range between ( 27.2 and 40.8 ) Early Auto: 7.7 % -- Normal range between [...] range between ( 36.0 and 46.0 ) Early Absolute: 0.9 x10 MCH: 26.9 pg -- [...] 65.8 ) (more content not included)... Normal [facility] ED Note-Physicianon 04-17-20 ED Note-Physician Chief Complaint [...] _ ? NEXUS C-spine Criteria: _ ? [place] Ankle Rule: _ ? [place] Knee Rule: _ ? Wells Criteria for [...] 8 g, 0 Refill(s), Pharmacy: [facility] #[id number] azithromycin, 1 packets, Oral, As Indicated, as directed on package labeling, X 5 days, # 6 tabs, 0 Refill(s), 04/22/23 12:50:00 EDT, Pharmacy: [facility] #[id number] methylPREDNISolone, 125 mg, IV Push, Powder-Inj, Once, First Dose: 04/17/23 12:50:00 EDT, Stop Date: 04/17/23 12:50:00 EDT, STAT, Dispense From Location: [facility], 04/17/23 12:50:00 EDT predniSONE, 2 tabs, Oral, Daily, X 5 days, # 10 tabs, 0 Refill(s), 04/22/23 12:50:00 EDT, Pharmacy: [facility] #[id number] 2. Smoker Ordered: albuterol, 1 puffs, Inhale, q4hr, PRN, # 8 g, 0 Refill(s), Pharmacy: [facility] #[id number] azithromycin, 1 packets, Oral, As Indicated, as directed on package labeling, X 5 days, # 6 tabs, 0 Refill(s), 04/22/23 12:50:00 EDT, Pharmacy: [facility] #[id number] methylPREDNISolone, 125 mg, IV Push, Powder-Inj, Once, First Dose: 04/17/23 12:50:00 EDT, Stop Date: 04/17/23 12:50:00 EDT, STAT, Dispense From Location: [facility], 04/17/23 12:50:00 EDT predniSONE, 2 tabs, Oral, Daily, X 5 days, # 10 tabs, 0 Refill(s), 04/22/23 12:50:00 EDT, Pharmacy: [facility] #[id number] Orders: Discharge Patient EKG Refresh (more content not included)... Normal [facility] Flu A&B Ag Rapidon 3 Influenza A Ag Negative Normal Negative [facility] Comment on above: Performed By: #### C [id number] #### [address] [address] Influenza B Ag Negative Normal Negative [facility] Comment on above: Result Comment: The [employer] Influenza A+B Card 2 detects both viable [...] A+B subtypes or strains, in consultation with state or local public health departments. Performed By: #### C [id number] #### [address] [address] Procalcitonin Levelon 2022 Procalcitonin Lvl <0.05 Normal <=0.49 [facility] Comment on above: Result Comment: < 0. [...] Performed By: #### . Automated Diff #### [place] [id number] S Preg Qlon 04-17-2023 Serum Preg Negative Normal [facility] Comment on above: Result Comment: The hCG Combo Rapid Test has a sensitivity of 10 mIU/mL in serum and is capable of detecting as early as 1 day after the first missed menses. Performed By: #### . Automated Diff #### [place] [id number] XR Chest 1 Viewon 04-17-2023 XR Chest [...] Electronically Signed in Other Vendor System) Normal [facility] ED Clinical Summaryon 2022 ED Clinical Summary [address] [address] ED Clinical Summary Person Information Name: Evelyne Allen/Baldomero_Harry Age: 28 Years : 1995 Sex: Female PCP: Misbah Gamble DO Marital Status: Single Phone: Race: White Ethnicity: Not or Language: Eritrean Visit Reason: Back pain; Right hip pain Acuity: 4 Enc Type: Emergency Med Service: Emergency Medicine Arrival: 03/06/2023 14:17:39 Discharge: 03/06/2023 15:15:00 LOS: 000 00:58 Checkin: 03/06/2023 14:17:39 Checkout: 03/06/2023 15:15:00 Dispo Type: Home or Self Care Address: [address] [facility] [address] Provider Notes: Diagnosis: 1:Right lumbar radiculopathy Problems [...] weakness or other concerns With: Address: When: [address] [address] [phone] Business (1) Within 2 to 4 days Comments: Recheck today's symptoms Discharge Orders: Discharge Patient 03/06/23 15:02:00 EDT, Discharge to Home, Self Patient Education Information: Back Pain (Acute or Chronic); Sciatica; Back Pain (Acute or Chronic) [facility] Poison Help line: . [facility] Hotline: [place] Tobacco Quit Line: [facility] ([place], [place]) [address]: [phone] [facility] ([place], [place]) [address]: [phone] [facility] [address] [place], [place]: [phone] Normal [facility] ED Note-Physicianon 03-06-20 ED Note-Physician Chief Complaint [...] ED as well as a one time Calder which greatly improves her pain. Review of [...] active in all quadrants] Back: [Right low bar back to palpation. Normal range of motion. No swelling, no ecchymosis. Straight leg raises normal] : [No costovertebral angle tenderness] Musculoskeletal/Extr emity: [Right buttock/hip and upper leg tender to palpation. No gross deformity, no edema, no erythema. Normal range of motion. Pulses and sensation intact] Skin: [[place], warm, dry, no injury, no rashes] Neuro: [...] _ ? NEXUS C-spine Criteria: _ ? [place] Ankle Rule: _ ? [place] Knee Rule: _ ? Wells Criteria for DVT: _ ? Wells Criteria for PE: _ Discussed with: _ Treatment and Disposition ED Course: Patient w/acute on chronic back pain, similar to previous flares. Right low bar back on exam. Patient is declining imaging and Rx medication at this time stating she would just like a dose of medication here in ED. Vitals are stable, patient is neurovascularly intact. Toradol, Norflex, Dexamethasone and a dose of Calder given here in ED w/relief. Will d/c [...] Historical No qualifying data Procedure/Surgical History DNC 2014 [place] [facility] Medications Inpatient dexamethasone, 8 mg= 2 mL, IM, Once Calder 5 mg-325 mg oral tablet, 1 tabs, Oral, Once orphenadrine, 60 mg= 2 mL, IM, Once Toradol, 30 mg= 1 mL, IM, (more content not included)... Normal [facility] .UA Microscp Aon 11-27-2022 UA RBC Quant 0 /HPF Normal 0-5 [facility] Comment on above: Performed By: #### . Urinalysis Microscopic Auto ####[address] [address] UA Squepi Cells Quant 1 /HPF Normal 0-29 [facility] Comment on above: Performed By: #### . Urinalysis Microscopic Auto ####[place] [id number] UA WBC Quant 1 /HPF Normal 0-5 [facility] Comment on above: Performed By: #### . Urinalysis Microscopic Auto ####[place] [id number] .eGFRon 11-27-2022 GFR/1.73 sq M.predicted MDRD (S/P/Bld) [Vol rate/Area] mL/min/{1.73_m2} Normal >=60 [facility] Comment on above: Result Comment: [facility] Laboratories have implemented the eGFR calculation approach [...] years Performed By: #### A MI2 #### [address] [address] AMI 2Hron 11-27-2022 2 Hour Myoglobin 10.1 ng/mL Low 14.3-65.[address] [facility] Comment on above: Performed By: #### A MI2 #### [place] [id number] 2 Hour Troponin <0.03 Normal 0.00-0.03 [facility] Comment on above: Result Comment: An i ncreased Troponin-I value, in the absence of myocardial ischemia, may indicate other etiologies of cardiac damage. Performed By: #### A MI2 #### [address] [address] AMI Initon 11-27-2022 Initial Myoglobin 12.8 ng/mL Low 14.3-65.8 [facility] Comment on above: Performed By: #### A MI1 ####[address] [address] Initial Troponin <0.03 Normal 0.00-0.[address] [facility] Comment on above: Result Comment: An i ncreased Troponin-I value, in the absence of myocardial ischemia, may indicate other etiologies of cardiac damage. Performed By: #### A MI1 ####[address] [address] BNPon 11-27-2022 Natriuretic peptide B (Bld) [Mass/Vol] 14 pg/mL Normal 0-100 [facility] Comment on above: Performed By: #### . Automated Diff #### [address] [address] CBC w/ Diffon 11-27-2022 Erythrocyte distribution width (RBC) [Ratio] 16.6 % High 11.6-14.8 [facility] Comment on above: Performed By: #### . Automated Diff #### [address] [address] Hematocrit (Bld) [Volume fraction] 40.0 % Normal 36.0-46.0 [facility] Comment on above: Performed By: #### . Automated Diff #### [address] [address] Hemoglobin (Bld) [Mass/Vol] 13.2 g/dL Normal 12.0-16.0 [facility] Comment on above: Performed By: #### . Automated Diff #### [address] [address] MCH (RBC) [Entitic mass] 28.3 pg Normal 27.0-35.0 [facility] Comment on above: Performed By: #### . Automated Diff #### [address] [address] MCHC 32.9 % Normal 31.0-37.0 [facility] Comment on above: Performed By: #### . Automated Diff #### [place] [address] MCV (RBC) [Entitic vol] 86.0 fL Normal 80.0-100.0 [facility] Comment on above: Performed By: #### . Automated Diff #### [place] [id number] Platelet 282 x10*3/mcL Normal 150-350 [facility] Comment on above: Performed By: #### . Automated Diff #### [place] [id number] Platelet mean volume (Bld) [Entitic vol] 8.7 fL Normal 6.7-10.6 [facility] Comment on above: Performed By: #### . Automated Diff #### [place] [address] RBC 4.66 x10*6/mcL Normal 3.80-5.20 [facility] Comment on above: Performed By: #### . Automated Diff #### [place] [address] WBC 6.4 x10*3/mcL Normal 4.5-11.0 [facility] Comment on above: Performed By: #### . Automated Diff #### [place] [address] CMPon 11-27-2022 Albumin [Mass/Vol] 3.7 g/dL Normal 3.2-4.9 [facility] Comment on above: Performed By: #### . Automated Diff #### [place] [id number] Albumin/Globulin [Mass ratio] 1.2 {ratio} Normal 1.1-2.2 [facility] Comment on above: Performed By: #### . Automated Diff #### [place] [id number] Alk Phos 75 IU/L Normal 32-91 [facility] Comment on above: Performed By: #### . Automated Diff #### [place] [id number] ALT [Catalytic activity/Vol] 16 U/L Normal 14-54 [facility] Comment on above: Performed By: #### . Automated Diff #### [address] [address] Anion gap [Moles/Vol] 8 mmol/L Normal 7-17 [facility] Comment on above: Performed By: #### . Automated Diff #### [address] [address] AST [Catalytic activity/Vol] 16 U/L Normal 15-41 [facility] Comment on above: Performed By: #### . Automated Diff #### [address] [address] Bili Total 0.3 mg/dL Normal 0.3-1.2 [facility] Comment on above: Performed By: #### . Automated Diff #### [address] [address] Calcium [Mass/Vol] 9.0 mg/dL Normal 8.5-10.3 [facility] Comment on above: Performed By: #### . Automated Diff #### [address] [address] Chloride [Moles/Vol] 106 mmol/L Normal 98-110 [facility] Comment on above: Performed By: #### . Automated Diff #### [address] [address] CO2 [Moles/Vol] 24 mmol/L Normal 22-32 [facility] Comment on above: Performed By: #### . Automated Diff #### [address] [address] Creatinine [Mass/Vol] 0.67 mg/dL Normal 0.44-1.03 [facility] Comment on above: Performed By: #### . Automated Diff #### [address] [address] Glucose [Mass/Vol] 92 mg/dL Normal 70-99 [facility] Comment on above: Performed By: #### . Automated Diff #### [address] [address] Potassium [Moles/Vol] 3.5 mmol/L Normal 3.4-4.8 [facility] Comment on above: Performed By: #### . Automated Diff #### [address] [address] Protein [Mass/Vol] 6.9 g/dL Normal 6.5-8.1 [facility] Comment on above: Performed By: #### . Automated Diff #### [address] [address] Sodium [Moles/Vol] 135 mmol/L Normal 133-142 [facility] Comment on above: Performed By: #### . Automated Diff #### [address] [address] Urea nitrogen [Mass/Vol] 7 mg/dL Low 8-26 [facility] Comment on above: Performed By: #### . Automated Diff #### [address] [address] Urea nitrogen/Creatinine [Mass ratio] 10.4 mg/mg Normal 10.0-20.0 [facility] Comment on above: Performed By: #### . Automated Diff #### [address] [address] COV19 Rapidon 11-27-2022 LAB ONLY Result Called? No Normal [facility] Comment on above: Performed By: #### C [id number] ####[address] [address] Reason for Rapid Test COVID Exposure Normal [facility] Comment on above: Performed By: #### C [id number] ####[address] [address] SARS-CoV-2 (COVID-19) RNA OLEGARIO+probe Ql (Unsp spec) Negative Normal Negative [facility] Comment on above: Result Comment: The 2019 [...] using the ID NOW COVID-19 test by [employer], which has received Emergency Use Authorization (EUA) [...] following links: Fact Sheet for HealthCare Providers: https://www.fda.gov/media/964074/download Fact Sheet for Patients: https://www.fda.gov/media/512712/download Performed By: #### C [id number] ####[address] [address] CRPon 11-27-2022 CRP 0.30 mg/dL Normal 0.00-0.75 [facility] Comment on above: Result Comment: CRP measurement is useful for assessment of non-specific INFLAMMATORY RESPONSE to infection or injury AND is a sensitive MARKER of ACUTE INFLAMMATION including CARDIAC RISK ASSESSMENT. CARDIAC patients with elevated CRP are POTENTIALLY at a HIGHER RISK OF FUTURE CARDIAC EVENTS. Performed By: #### C RP ####[place] [place] [address] Diff Autoon 11-27-2022 Baso Absolute 0.0 x10*3/mcL Normal 0.0-0.[address] [facility] Comment on above: Performed By: #### . Automated Diff #### [address] [place] [address] Basophils/100 WBC (Bld) 0.8 % Normal 0.0-1.5 [facility] Comment on above: Performed By: #### . Automated Diff #### [address] [address] Eos Absolute 0.2 x10*3/mcL Normal 0.0-0.4 [facility] Comment on above: Performed By: #### . Automated Diff #### [address] [address] Eosinophils/100 WBC (Bld) 3.9 % Normal 0.0-5.4 [facility] Comment on above: Performed By: #### . Automated Diff #### [address] [address] Lymph Absolute 2.5 x10*3/mcL Normal 1.0-4.8 [facility] Comment on above: Performed By: #### . Automated Diff #### [address] [address] Lymphocytes/100 WBC (Bld) 39.3 % Normal 27.2-40.8 [facility] Comment on above: Performed By: #### . Automated Diff #### [address] [address] Early Absolute 0.7 x10*3/mcL Normal 0.1-1.[address] [facility] Comment on above: Performed By: #### . Automated Diff #### [address] [address] Monocytes/100 WBC (Bld) 11.1 % Normal 3.7-11.9 [facility] Comment on above: Performed By: #### . Automated Diff #### [address] [address] Neutro Absolute 2.9 x10*3/mcL Normal 1.8-7.7 [facility] Comment on above: Performed By: #### . Automated Diff #### [address] [address] Neutro Auto 44.9 % Low 47.2-70.8 [facility] Comment on above: Performed By: #### . Automated Diff #### [address] [address] ED Clinical Summaryon 2022 ED Clinical Summary [address] [address] ED Clinical Summary Person Information Name: Evelyne Allen/Magdalena Age: 27 Years : 1995 Sex: Female PCP: Misbah Gamble DO Marital Status: Single Phone: Race: White Ethnicity: Not or Language: Eritrean Visit Reason: Shortness of breath; Dyspnea - adult Acuity: 3 Enc Type: Emergency Med Service: Emergency Medicine Arrival: 11/27/2022 11:49:27 Discharge: 11/27/2022 16:01:00 LOS: 000 04:12 Checkin: 11/27/2022 11:49:27 Checkout: 11/27/2022 16:01:00 Dispo Type: Home or Self Care Address: [facility] [address] [place] [id number] Provider Notes: Diagnosis: 1:Dyspnea; 2:Edema; 3:Bronchitis; 4:Chest [...] range between ( 27.2 and 40.8 ) Early Auto: 11.1 % -- Normal range between [...] range between ( 36.0 and 46.0 ) Early Absolute: 0.7 x10 MCH: 28.3 pg -- [...] Final M (more content not included)... Normal [facility] ED Note-Physicianon 11-28-19 ED Note-Physician Chief Complaint [...] in this document, created by the medical billing manager for me, accurately reflects the services I [...] _ ? NEXUS C-spine Criteria: _ ? [place] Ankle Rule: _ ? [place] Knee Rule: _ ? [place] Criteria for [...] PRN, # 6.7 g, 0 Refill(s), Pharmacy: [id number] azithromycin, 1 tabs, Oral, Daily, X 5 days, # 5 tabs, (more content not included)... Normal [facility] Magnesiumon 11-27-2022 Magnesium [Mass/Vol] 1.8 mg/dL Normal 1.7-2.4 [facility] Comment on above: Performed By: #### M G ####[address] [address] PTon 11-27-2022 INR Coag (PPP) [Relative time] 0.9 {INR} Normal <=3.5 [facility] Comment on above: Result Comment: INR has no normal range. INR Therapeutic range is: 2.0-3.0 (AF, CVA, TIAs, DVT prophylaxis, acute DVT) 2.5-3.5 ([facility] heart valves, recurrent thrombosis/emboli) Performed By: #### . Automated Diff #### [address] [address] PT Coag (PPP) [Time] 9.9 s Normal 9.3-11.9 [facility] Comment on above: Performed By: #### . Automated Diff #### [address] [address] PTTon 11-27-2022 aPTT Coag (Bld) [Time] 27.2 s Normal 20.6-29.2 [facility] Comment on above: Performed By: #### A MI2 #### [address] [address] Procalcitonin Levelon 2022 Procalcitonin Lvl <0.05 Normal <=0.49 [facility] Comment on above: Result Comment: < 0. [...] Performed By: #### . Automated Diff #### [place] [address] TSH w/ Rflx Free T4on 2022 TSH Qn 1.06 m[IU]/L Normal 0.45-5.33 [facility] Comment on above: Result Comment: Refe rence Ranges for individuals from to 18 years of age were obtained from The [facility] Handbook (20 ed) published by [facility]. Reference Ranges for Females: Females, 1st Trimester 0.05 ? 3.7 uIU/mL Females, 2nd Trimester 0.31 ? 4.35 uIU/mL Females, 3rd Trimester 0.41 ? 5.18 uIU/mL Performed By: #### A MI2 #### [place] [id number] UA w Culture if Indon 2022 Color (U) Colorless Normal [facility] Comment on above: Performed By: #### U CI ####[place] [id number] Ketones Ql (U) Negative Normal Negative [facility] Comment on above: Performed By: #### U CI ####[address] [address] UA Blood Negative Normal Negative [facility] Comment on above: Performed By: #### U CI ####[place] [id number] UA Clarity Clear Normal [facility] Comment on above: Performed By: #### U CI ####[address] [address] UA Glucose Normal Normal Negative [facility] Comment on above: Performed By: #### U CI ####[address] [address] UA Leukocyte Esterase Negative Normal Negative [facility] Comment on above: Performed By: #### U CI ####[address] [address] UA Nitrite Negative Normal Negative [facility] Comment on above: Performed By: #### U CI ####[address] [address] UA pH 6.0 Normal 4.5 - 7.8 [facility] Comment on above: Performed By: #### U CI ####[address] [address] UA Protein Negative Normal Negative [facility] Comment on above: Performed By: #### U CI ####[address] [address] UA Source Clean Catch Normal [facility] Comment on above: Performed By: #### U CI ####[address] [address] UA Spec Grav 1.003 Normal 1.003-1.035 [facility] Comment on above: Performed By: #### U CI ####[address] [address] UA Urobilinogen Normal Normal 0.2 - 1.0 [facility] Comment on above: Performed By: #### U CI ####[address] [address] Urobilinogen (U) [Mass/Vol] Negative Normal Negative [facility] Comment on above: Performed By: #### U CI ####[address] [address] XR Chest 1 Viewon 11-27-2022 XR Chest [...] Electronically Signed in Other Vendor System) Normal [facility] UrinalysisOrdered By: Jade Hicks on 02-09-2021 Bilirubin Urine Negative NEGATIVE [employer] [facility] Work Phone: Color, UA YELLOW YELLOW [facility] [employer] Work Phone: Glucose, Ur Negative NEGATIVE [facility] Work Phone: Interpretation and review of laboratory results Abnormal [facility] [employer] Work Phone: Ketones Ql (U) Negative NEGATIVE [facility] Work Phone: Leukocyte esterase Test strip Ql (U) Negative NEGATIVE [facility] [employer] Work Phone: Nitrite, Urine Negative NEGATIVE [facility] Work Phone: pH, UA 7.0 [facility] Work Phone: Protein, UA Negative NEGATIVE [facility] Work Phone: Specific [place], UA <1.005 [facility] Work Phone: Turbidity UA CLEAR CLEAR [facility] Work Phone: Urinalysis Comments NOT REPORTED [facility] [employer] Work Phone: Urine Hgb Negative NEGATIVE [facility] [employer] Work Phone: Urobilinogen, Urine Normal Normal [facility] [employer] Work Phone: [employer] Work Phone: Vital Signs Date Time Vital Sign Value Performing Clinician Librado jackson 05-04-2022 22:48-0400 Body temperature 97.3 [degF] Carl Andes DO Work Phone: [facility] [employer] 05-04-2022 22:48-0400 Diastolic blood pressure 79 mm[Hg] Carl Andes DO Work Phone: [facility] 05-04-2022 22:48-0400 Heart rate 83 /min Carl Andes DO Work Phone: [facility] 05-04-2022 22:48-0400 Respiratory rate 17 /min Carl Andes DO Work Phone: [facility] [employer] 05-04-2022 22:48-0400 SaO2% (BldA) [Mass fraction] 98 % Carl Andes DO Work Phone: [facility] 05-04-2022 22:48-0400 Systolic blood pressure 116 mm[Hg] Carl Andes DO Work Phone: [facility] [employer] 02-09-2021 17:15-0400 Body height 172.7 cm Jade Kurt DRIVING INSTRUCTOR - CNM Work Phone: [employer] Work Phone: 02-09-2021 17:15-0400 Body mass index (BMI) [Ratio] 37.86 kg/m2 Jade Kurt DRIVING INSTRUCTOR - CNM Work Phone: [employer] Work Phone: 02-09-2021 17:15-0400 Body temperature 97.81 [degF] Jade Kurt DRIVING INSTRUCTOR - CNM Work Phone: [employer] Work Phone: 02-09-2021 17:15-0400 Body weight 112.95 kg Jade Givensr DRIVING INSTRUCTOR - CNM Work Phone: [employer] Work Phone: 02-09-2021 17:15-0400 Diastolic blood pressure 64 mm[Hg] Jade Kurt DRIVING INSTRUCTOR - CNM Work Phone: [employer] Work Phone: 02-09-2021 17:15-0400 Heart rate 88 /min Jade Kurt DRIVING INSTRUCTOR - CNM Work Phone: [employer] Work Phone: 02-09-2021 17:15-0400 Respiratory rate 18 /min Jade Kurt DRIVING INSTRUCTOR - CNM Work Phone: [employer] Work Phone: 02-09-2021 17:15-0400 Systolic blood pressure 122 mm[Hg] Jade Kurt DRIVING INSTRUCTOR - CNM Work Phone: [employer] Work Phone: 02-09-2021 16:33-0400 Body temperature 97.2 [degF] Casimiro Campos MD Work Phone: [employer] Work Phone: 02-09-2021 16:33-0400 Diastolic blood pressure 70 mm[Hg] Casimiro Campos MD Work Phone: [employer] Work Phone: 02-09-2021 16:33-0400 Heart rate 93 /min Casimiro Campos MD Work Phone: [employer] Work Phone: 02-09-2021 16:33-0400 Respiratory rate 18 /min Casimiro Campos MD Work Phone: [employer] Work Phone: 02-09-2021 16:33-0400 SaO2% (BldA) [Mass fraction] 98 % Casimiro Campos MD Work Phone: [employer] Work Phone: 02-09-2021 16:33-0400 Systolic blood pressure 117 mm[Hg] Casimiro Campos MD Work Phone: [employer] Phone: 01-05-2021 17:09-0400 Body temperature 98.1 [degF] Sr [employer] DO Work Phone: [employer] Phone: 01-05-2021 17:09-0400 Diastolic blood pressure 74 mm[Hg] Sr [employer] Work Phone: [employer] Phone: 01-05-2021 17:09-0400 Heart rate 103 /min Sr [employer] Phone: [employer] Phone: 01-05-2021 17:09-0400 Respiratory rate 16 /min Sr [employer] Phone: [employer] Phone: 01-05-2021 17:09-0400 SaO2% (BldA) [Mass fraction] 97 % Sr [employer] Phone: [employer] Phone: 01-05-2021 17:09-0400 Systolic blood pressure 115 mm[Hg] Sr [employer] Phone: [employer] Phone: Encounters Encounter Date Encounter Type Care Provider Facility Start: 05-24-2024 End: 05-24-2024 Emergency department patient visit [facility] Start: 05-04-2024 End: 05-04-2024 Emergency department patient visit [facility] Start: 04-17-2024 End: 04-17-2024 Emergency department patient visit [facility] Start: 12-02-2023 End: 12-02-2023 Emergency department patient visit [facility] Start: 10-31-2023 End: 11-01-2023 Emergency department patient visit LAWANDA BESS [facility] Start: 08-02-2023 End: 08-02-2023 Emergency department patient visit MARY CRAWLEY [facility] Start: 08-02-2023 End: 08-02-2023 Emergency department patient visit GIGI Wallace [facility] Start: 06-27-2023 End: 06-27-2023 Emergency department patient visit GIGI Wallace [facility] Start: 06-27-2023 End: 06-27-2023 Emergency department patient visit MIGNON Cortes [facility] Start: 06-26-2023 End: 06-26-2023 Emergency department patient visit Sebastian CEVALLOS~[id number] PREET JOSUE [facility] Start: 06-14-2023 End: 06-14-2023 Emergency department patient visit GIGI Wallace [facility] Start: 06-13-2023 End: 06-13-2023 [facility] Start: 06-08-2023 End: 06-08-2023 Emergency department patient visit GIGI Wallace [facility] Start: 05-10-2023 End: 05-11-2023 ambulatory GIGI Wallace [facility] Start: 04-18-2023 End: 04-19-2023 ambulatory Christian Salinas MD Facility:[facility] Start: 04-17-2023 End: 04-17-2023 Emergency department patient visit Christian Salinas MD Facility:[facility] Start: 04-01-2023 ambulatory Opal El [facility] Start: 03-06-2023 End: 03-06-2023 [facility] Start: 02-17-2023 Emergency department patient visit MISBAH GAMBLE [facility] Start: 11-27-2022 End: 11-27-2022 Emergency department patient visit Misbah Gamble DO Facility:[facility] Start: 10-08-2022 End: 10-08-2022 ambulatory GAMA CALLE Facility:[facility] Start: 05-04-2022 End: 05-04-2022 Emergency department patient visit Carl Wilson DO Work Phone: [facility] ED Comment on above: Acute exacerbation o f chronic low back pain (Primary Dx); Degenerative disc disease, lumbar Start: 02-09-2021 End: 02-09-2021 Subsequent hospital visit by physician Jade Hicks APRN - CNArnulfo Work Phone: [facility] Start: 02-09-2021 End: 02-09-2021 Emergency department patient visit Casimiro Campos MD Work Phone: [facility] Start: 01-05-2021 End: 01-05-2021 Emergency department patient visit Sr Gamble DO Work Phone: [facility] ED Comment on above: Dental abscess (Prim dennise Dx); Dental caries Procedures Date Procedure Procedure Detail Performing Clinician Start: 02-09-2021 Urnls dip stick/tabl et rgnt auto w/o microscopy Jade Hicks APRN - CNM Work Phone: Plan of Treatment Date Care Activity Detail Author Start: 03-01-2022 Influenza vaccination Flu vaccine (# 1) [facility] Start: 04-01-2021 Influenza vaccination [facility] [employer] Work Phone: Start: 2014 Screening for malign ant neoplasm of cervix [facility] Start: 02-29-2012 DTaP/Tdap/Td vaccine (1 - Tdap) DTaP/Tdap/Td vaccine (1 - Tdap) [facility] Start: 2011 Hepatitis C screening Hepatitis C sc reen [facility] Start: 02-29-2008 HIV screening HIV screen [facility] Start: 2005 COVID-19 Vaccine (1) COVID-19 Vaccin e (1) [facility] Work Phone: Start: 2005 Depression Screen Depression Screen [facility] Start: 1999 Pneumococcal 0-64 ye ars Vaccine (1 - PCV) Pneumococcal 0-64 years Vaccine (1 - PCV) [facility] [employer] Start: 1999 Pneumococcal 0-64 ye ars Vaccine (1 of 2 - PPSV23) Pneumococcal 0-64 years Vaccine (1 of 2 - PPSV23) [employer] Phone: Start: 1994 Varicella vaccine (1 of 2 - 2-dose childhood series) Varicella vaccine (1 of 2 - 2-dose childhood series) [facility] [employer] Start: 1993 COVID-19 Vaccine (#1) COVID-19 Vacci ne (#1) [facility] [employer] Start: 1993 Hepatitis C screening Hepatitis C sc reejose [employer] Phone: End: 02-09-2021 nonstress test nonstress test OB Routine One Time for 1 Occurrences starting 02/09/2021 until 02/09/2021 [employer] Phone: Comment on above: One Time for 1 Occur rences starting 02/09/2021 until 02/09/2021 End: 02-09-2021 US BIOPHYS PROFILE W NON STRESS US BIOPHYS PROFILE W NON STRESS Imaging Routine Once for 1 Occurrences starting 02/09/2021 until 02/09/2021 [employer] Phone: Comment on above: Once for 1 Occurrenc es starting 02/09/2021 until 02/09/2021 US BIOPHYS PRO FILE W NON STRESS US BIOPHYS PROFILE W NON STRESS Imaging STAT 02/09/2021 7:06 PM EDT [employer] Phone: End: 02-09-2021 US OB 14 PLUS WEEKS SINGLE OR FIRST GESTATION US OB 14 PLUS WEEKS SINGLE OR FIRST GESTATION Imaging STAT Once for 1 Occurrences starting 02/09/2021 until 02/09/2021 [employer] Phone: Comment on above: Once for 1 Occurrenc es starting 02/09/2021 until 02/09/2021 US OB 14 PLUS WEEKS SINGLE OR FIRST GESTATION US OB 14 PLUS WEEKS SINGLE OR FIRST GESTATION Imaging STAT 02/09/2021 7:06 PM EDT [employer] Phone: Payers Date Payer Category Payer Unknown 2023 Unknown [id number] 2022 Self-pay 2022 Medicaid [id number] 2020 Unknown [employer] [id number] 2020-Present [phone] [address] [place] [address] [id number] 1995 Unknown [id number] 1995 Unknown [id number] [id number] 1995 Unknown [id number] [id number] 1995 Unknown [id number] [id number] 1993 Unknown [id number] [id number] 1993 Unknown [id number] [id number] 1995 Unknown [id number] [id number] 1995 Unknown [id number] [id number] 1993 Unknown [id number] [id number] 1993 Unknown [id number] [id number] 1993 Unknown [id number] 2.16.840.1.563489.3.579.2.1286 1993 Unknown [id number] [id number] 1993 Unknown [id number] [id number] 1993 Unknown [id number] [id number] 1995 Unknown [id number] Social History Date Type Detail Facility Start: 01-05-2021 End: 02-09-2021 Tobacco smoking status NMIS Current every day smoker MARQUISE GRAY [employer] Start: 01-05-2021 End: 02-09-2021 Tobacco use and exposure Never used [employer] Start: 1995 Sex Assigned At Not on file [employer] Phone: Start: 04-24-2022 End: 05-05-2022 Exposure to SARS-CoV-2 (event) Not sure [facility] History of tobacco use Cigarette Smoker [employer] Start: 02-09-2021 Cigarettes smoked current (pack per day) - Reported [employer] Phone: Start: 02-09-2021 End: 05-04-2022 Alcohol intake Ex-drinker (finding) [employer] Phone: Start: 02-09-2021 History SDOH Alcohol Frequency 1 [employer] Phone: Start: 07-01-2020 [employer] Work Phone: History of Present illness Narrative 02-09-2021 Tracie Coleman, AFUA - CNM - 02/09/2021 6:50 PM EDT Note Date & Type Note Facility 02-09-2021 History of Present illness Narrative Out Patient Note: Evelyne is a 25 y.o. 33.6 wks gestation. who is going to be a repeat . 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 Non compliant with care and has only [...] plan of care. documented in this encounter [employer] Phone: Hospital Discharge instructions 02-09-2021 Instructions Note Date & Type Note Facility 02-09-2021 Hospital Discharg e instructions Rhiannon Pedersen, MANOHAR - 02/09/[address] Eliza Day [facility] Dr. Charity Hobbs [address] [facility] [address] [address] Charity Mcgill [facility] [address] [facility] [id number] [phone] Kayla Wright, MSN, DRIVING INSTRUCTOR, CNM [facility] [address] [facility] [address] [address] [facility] [id number] Tracie Coleman CNM [address] [place] [address] Jade Hicks CNM [address] [place] [address] [place] [address] [phone] ACTIVITY LIMITATIONS: ( X )Up and about [...] AND DELIVERY . documented in this encounter [employer] Phone: Evaluation note Note Date & Type Note Facility Evaluation note Diagnosis Dental abscess- Primary Periapical abscess without sinus Dental caries Unspecified dental caries documented in this encounter [employer] Phone: Evaluation note Note Date & Type Note Facility Evaluation note Diagnosis Acute exacerbation of chronic low back pain- Primary Degenerative disc disease, lumbar Degeneration of lumbar or lumbosacral intervertebral disc documented in this encounter [employer] Phone: Hospital Discharge instructions Attachments Note Date & Type Note Facility Hospital Discharge instructions The following attachments cannot be sent through Care Everywhere.Tooth Decay (Eritrean)documented in this encounter [employer] Phone: Hospital Discharge instructions Attachments Note Date & Type Note Facility Hospital Discharge instructions The following attachments cannot be sent through Care Everywhere.Degenerative Disc Disease: General Info (Eritrean)documented in this encounter [facility] Phone: Summary Purpose Family History No Family [...] hr before and 2 hrs after dose. 183 (Given - Provid er: Laura Perez RN) Scheduled Medication Order 02/07/2021 02/08/2021 02/09/2021 acetaminophen (TYLENOL) tablet 1,000 mg 1,000 mg, Oral, ONCE, On Tue02/09/21 at 1800, For 1 dose, Maximum dose of acetaminophen is 4000 mg from all sources in 24 hours. 1820 (Not Given - Pr ovider: Hannah Barker RN - Reason: Patient/family refused) Scheduled Medication Order 05/02/2022 05/03/2022 05/04/2022 dexamethasone (DECADRON) injection 10 mg (COMPLETED) 10 mg, Other, ONCE, On Tue05/04/22 at 2315, For 1 dose, Please give by IM route 2316 (Given - Provid er: Charisse Gill RN) [...] Care Teams (unrecognized sec tion and content) Food Analyst Relationship Specialty Start Date End Date Sr Misbah Gamble DO [address] [place] [address] PCP - General Family Medicine 01/05/21 INFORMATION SOURCE (unrecogn ized section and content) DATE CREATED AUTHOR 10/09/2022 [facility] DATE CREATED AUTHOR AUTHOR'S ORGANIZ ATION 04/02/2023 [facility] DATE CREATED AUTHOR AUTHOR'S ORGANIZ ATION 06/09/2023 [facility] DATE CREATED AUTHOR AUTHOR'S ORGANIZ ATION 08/02/2023 [facility] DATE CREATED AUTHOR AUTHOR'S ORGANIZ ATION 08/06/2023 [facility] DATE CREATED AUTHOR AUTHOR'S ORGANIZ ATION 05/26/2024 [facility] FOR RECORDS PERTAINING TO PATIENTS [...] BE BASED ON THE PRIMARY CLINICAL RECORDS. [employer] [facility]. provides no warranty or guarantee of the accuracy or completeness of information in this document.
[2024-05-28 20:14] VITALS: BP 133/100; PULSE 113; TEMP 36.7; O2SAT 97; BMI 38.0
== END 2024-05-28 21:03 | disposition left against medical advice (07) ==
PROVIDERS: Emergency Provider Emergency Medicine
DX: Z53.21 Procedure and treatment not carried out due to patient leaving prior to being seen by health care provider (principal)

== ENCOUNTER 2024-05-30 20:53 | Emergency (ER) | payer OTHER, SELFPAY ==
[2024-05-30 21:07] VITALS: BP 147/98; PULSE 102; TEMP 36.7; O2SAT 96; BMI 38.0
--- OUTSIDE RECORDS SUMMARY | 2024-05-30 21:15 | XMS_ITS | CCD ---
Author Organization [facility] Care Team Providers Care Cryptologic Linguist Name Role Phone Tai NAVARRO, Sr Misbah Hernandez Primary Care Provider [phone] GAMA CALLE Attending Unavailable GAMA CALLE Admitting Unavailable [facility], DR RODRIGUEZ Primary Care Unavailable Opal Cuevas CNP Attending Unavailable Brad OROPEZA, Christian Figueredo Referring [facility] Anand Guillaume DO Attending Unavaila codey [facility] , [facility] Jesu Brannon PA-C, Ambar Saini Attending Unavailgina Salinas MD, Christian Figueredo Attending [facility] Meeta Emmanuel MD Attending Unavailable MIGNON OVIEDO Attending Unavailable GIGI MALDONADO Primary Care Unavailable GIGI MALDONADO Primary Care Unavailable GIGI MALDONADO Primary Care Unavailable ROSSANA GALLAGHER Attending Unavailable GIGI MALDONADO Primary Care Unavailable JOELGIGI PARR Primary Care Unavailable GIGI MALDONADO Referring Unavailable Sebastian GARCIA~[id number] PREET Attending Unavailable GIGI MALDONADO Primary Care Unavailable IVÁN BOLTON Attending Unavailable GIGI MALDONADO Primary Care Unavailable GIGI MALDONADO Primary Care Unavailable MISBAH GAMBLE SR [...] Winters MD on 05/24/2024 9:02 PM Normal [facility] XR FOOT RT MIN 3 VWSon 05-24 XR FOOT RT MIN 3 VWS XR FOOT RT MIN 3 VW S XR FOOT RT MIN 3 VWS HISTORY: trauma. Foot pain COMPARISON: none IMPRESSION: 1. No acute fracture or dislocation. Finalized by Pedro Witners MD on 05/24/2024 9:03 PM Normal [facility] XR KNEE RT 3 VWSon XR KNEE RT 3 VWS XR KNEE RT 3 VWS XR KNEE RT 3 VWS HISTORY: trauma. Knee pain. COMPARISON: none IMPRESSION: 1. No acute fracture or dislocation. Knee effusion. Mild pretibial soft tissue thickening. Finalized by Pedro Winters MD on 05/24/2024 9:03 PM Normal [facility] XR CHEST 1 VWon 10-31-2023 XR CHEST 1 VW XR CHEST 1 VW Single view chest History: Cough Comparison: X-ray 04/23/2023 Findings: Single portable view of the chest. Cardiomediastinal silhouette and pulmonary vasculature are within normal limits. Lungs and pleural space are clear. There is no pleural effusion or pneumothorax. Impression: No acute cardiopulmonary process. Finalized by Adriano Alcala on 10/31/2023 12:55 PM Normal [facility] CBC with Diffon 06-27-2023 Abs. Basophil 0.06 k/uL Normal 0.00-0.20 [facility] Comment on above: Performed By: #### C DP, CP #### [address] [place] [address] Spinneret Cleaner: Jarod Bernardo MD Abs.Imm.Granulocyte 0.03 k/uL Normal 0.00-0.30 [facility] Comment on above: Performed By: #### C DP, CP #### [address] [place] [address] Spinneret Cleaner: Jarod Bernardo MD Abs.Neutrophil (Seg) 6.24 k/uL Normal 1.50-8.10 [facility] Comment on above: Performed By: #### C DP, CP #### [address] [place] [address] Spinneret Cleaner: Jarod Bernardo MD Basophils/100 WBC (Bld) 1 % Normal 0-2 [facility] Comment on above: Performed By: #### C DP, CP #### [address] [place] [address] Spinneret Cleaner: Jarod Bernardo MD Eosinophils (Bld) [#/Vol] 0.10 10*3/uL Normal 0.00-0.44 [facility] Comment on above: Performed By: #### C DP, CP #### [address] [place] [address] Spinneret Cleaner: Jarod Bernardo MD Eosinophils/100 WBC (Bld) 1 % Normal 1-4 [facility] Comment on above: Performed By: #### C DP, CP #### [address] [place] [address] Spinneret Cleaner: Jarod Bernardo MD Erythrocyte distribution width (RBC) [Ratio] 15.7 % High 11.8-14.4 [facility] Comment on above: Performed By: #### C DP, CP #### [address] [place], [facility] Spinneret Cleaner: Jarod Bernardo MD Hematocrit (Bld) [Volume fraction] 38.2 % Normal 36.3-47.1 [facility] Comment on above: Performed By: #### C DP, CP #### [facility] [address] [place], [facility] Spinneret Cleaner: Jarod Bernardo MD Hemoglobin (Bld) [Mass/Vol] 11.8 g/dL Low 11.9-15.1 [facility] Comment on above: Performed By: #### C DP, CP #### [address] [place] [address] Spinneret Cleaner: Jarod Bernardo MD Immature granulocytes/100 WBC (Bld) 0 % Normal 0 [facility] Comment on above: Performed By: #### C DP, CP #### [facility] [address] [place] [address] Dr. [place], [facility]83 Spinneret Cleaner: Jarod Bernardo MD Lymphocytes (Bld) [#/Vol] 1.20 10*3/uL Normal 1.10-3.70 [facility] Comment on above: Performed By: #### C DP, CP #### [address] [place], [facility] Spinneret Cleaner: Jarod Bernardo MD Lymphocytes/100 WBC (Bld) 14 % Low 24-43 [facility] Comment on above: Performed By: #### C DP, CP #### [facility] [address] [place] [address] Dr. [place], [facility]83 Spinneret Cleaner: Jarod Bernardo MD MCH (RBC) [Entitic mass] 26.2 pg Normal 25.2-33.5 [facility] Comment on above: Performed By: #### C DP, CP #### [facility] [address] [place] [address] Dr. [place], [facility] Spinneret Cleaner: Jarod Bernardo MD MCHC (RBC) [Mass/Vol] 30.9 g/dL Normal 28.4-34.8 [facility] Comment on above: Performed By: #### C DP, CP #### [facility] [address] [place], [place] [address] Spinneret Cleaner: Jarod Bernardo MD MCV (RBC) [Entitic vol] 84.9 fL Normal 82.6-102.9 [facility] Comment on above: Performed By: #### C DP, CP #### [facility] [address] [place], [place] [address] Spinneret Cleaner: Jarod Bernardo MD Monocytes (Bld) [#/Vol] 0.70 10*3/uL Normal 0.10-1.20 [facility] Comment on above: Performed By: #### C DP, CP #### [address] [place], [place] [address] Spinneret Cleaner: Jarod Bernardo MD Monocytes/100 WBC (Bld) 8 % Normal 3-12 [facility] Comment on above: Performed By: #### C DP, CP #### [address] [place], [place] [address] Spinneret Cleaner: Jarod Bernardo MD Neutrophil (Seg) 76 % High 36-65 [facility] Comment on above: Performed By: #### C DP, CP #### [address] [place], [place] [address] Spinneret Cleaner: Jarod Bernardo MD NRBC Automated 0.0 per 100 WBC Normal 0.0 [facility] Comment on above: Performed By: #### C DP, CP #### [address] [place], [place] [address] Spinneret Cleaner: Jarod Bernardo MD Platelet mean volume (Bld) [Entitic vol] 9.7 fL Normal 8.1-13.5 [facility] Comment on above: Performed By: #### C DP, CP #### [facility] [address] [place] [address] Spinneret Cleaner: Jarod Bernardo MD Platelets (Bld) [#/Vol] 295 10*3/uL Normal 138-453 [facility] Comment on above: Performed By: #### C DP, CP #### [facility] [address] [place] [address] Spinneret Cleaner: Jarod Bernardo MD RBC (Bld) [#/Vol] 4.50 10*6/uL Normal 3.95-5.11 [facility] Comment on above: Performed By: #### C DP, CP #### [facility] [address] [place], [place] [id number] Spinneret Cleaner: Jarod Bernardo MD WBC (Bld) [#/Vol] 8.3 10*3/uL Normal 3.5-11.3 [facility] Comment on above: Performed By: #### C DP, CP #### [facility] [address] [place], [place] 2017683 Spinneret Cleaner: Jarod Bernardo MD CT SOFT TISSUE NECK [...] Miah Boo MD 06/27/23 Final result Normal [facility] Comp Metabolic Profon 2022 Albumin [Mass/Vol] 4.0 g/dL Normal 3.5-5.2 [facility] Comment on above: Performed By: #### C LIZZETTE, CP #### [facility] [address] [place] [address] Spinneret Cleaner: Jarod Bernardo MD Albumin/Glob Ratio 1.6 Normal 1.0-2.5 [facility] Comment on above: Performed By: #### C LIZZETTE, CP #### [facility] [address] [place] [address] Spinneret Cleaner: Jarod Bernardo MD Alkaline Phos 93 U/L Normal 35-104 [facility] Comment on above: Performed By: #### C DP, CP #### [facility] [address] [place], [place] [id number] Spinneret Cleaner: Jarod Bernardo MD ALT [Catalytic activity/Vol] 23 U/L Normal 5-33 [facility] Comment on above: Performed By: #### C DP, CP #### [facility] [address] [place], [place] 6544683 Spinneret Cleaner: Jarod Bernardo MD Anion gap [Moles/Vol] 14 mmol/L Normal 9-17 [facility] Comment on above: Performed By: #### C DP, CP #### [facility] [address] [place], [place] [address]83 Spinneret Cleaner: Jarod Bernardo MD AST [Catalytic activity/Vol] 20 U/L Normal <32 [facility] Comment on above: Performed By: #### C DP, CP #### [facility] [address] [place], [place] [address]83 Spinneret Cleaner: Jarod Bernardo MD Bilirubin [Mass/Vol] 0.3 mg/dL Normal 0.3-1.2 [facility] Comment on above: Performed By: #### C DP, CP #### [facility] [address] [place], [place] [id number] Spinneret Cleaner: Jarod Bernardo MD BUN/CRE Ratio 15 Normal 9-20 [facility] Comment on above: Performed By: #### C DP, CP #### [facility] [address] [place], [place] 2629683 Spinneret Cleaner: Jarod Bernardo MD Calcium [Mass/Vol] 8.9 mg/dL Normal 8.6-10.4 [facility] Comment on above: Performed By: #### C DP, CP #### [facility] [address] [place], [place] [address]83 Spinneret Cleaner: Jarod Bernardo MD Chloride [Moles/Vol] 102 mmol/L Normal 98-107 [facility] Comment on above: Performed By: #### C DP, CP #### [facility] [address] [place] [id number] Spinneret Cleaner: Jarod Bernardo MD CO2 [Moles/Vol] 21 mmol/L Normal 20-31 [facility] Comment on above: Performed By: #### C DP, CP #### [facility] [address] [place] [id number] Spinneret Cleaner: Jarod Bernardo MD Creatinine [Mass/Vol] 0.6 mg/dL Normal 0.5-0.9 [facility] Comment on above: Performed By: #### C DP, CP #### [facility] [address] [place] [id number] Spinneret Cleaner: Jarod Bernardo MD GFR/1.73 sq M.predicted among non-blacks MDRD (S/P/Bld) [Vol rate/Area] mL/min/{1.73_m2} Normal >60 [facility] Comment on above: Result Comment: These results [...] Performed By: #### C DP, CP #### [facility] [address] [place], [place] [id number] Spinneret Cleaner: Jarod Bernardo MD Glucose [Mass/Vol] 107 mg/dL High 70-99 [facility] Comment on above: Performed By: #### C DP, CP #### [facility] [address] [place] [phone] Spinneret Cleaner: Jarod Bernardo MD Potassium [Moles/Vol] 3.6 mmol/L Low 3.7-5.3 [facility] Comment on above: Performed By: #### C DP, CP #### [address] [place], [place] 0205383 Spinneret Cleaner: Jarod Bernardo MD Protein [Mass/Vol] 6.5 g/dL Normal 6.4-8.3 [facility] Comment on above: Performed By: #### C DP, CP #### [address] [place] [address] Spinneret Cleaner: Jarod Bernardo MD Sodium [Moles/Vol] 137 mmol/L Normal 135-144 [facility] Comment on above: Performed By: #### C DP, CP #### [address] [place] [address] Spinneret Cleaner: Jarod Bernardo MD Urea nitrogen [Mass/Vol] 9 mg/dL Normal 6-20 [facility] Comment on above: Performed By: #### C DP, CP #### [address] [place], [place] [phone] Spinneret Cleaner: Jarod Bernardo MD CBC with Diffon 05-10-2023 Abs. Basophil 0.04 k/uL Normal 0.00-0.20 [facility] Comment on above: Performed By: #### C LIZZETTE, CMPF #### [address] [place] [address] Spinneret Cleaner: Jarod Bernardo MD Abs.Imm.Granulocyte 0.06 k/uL Normal 0.00-0.30 [facility] Comment on above: Performed By: #### C DP, CMPF #### [address] [place] [address] Spinneret Cleaner: Jarod Bernardo MD Abs.Neutrophil (Seg) 5.10 k/uL Normal 1.50-8.10 [facility] Comment on above: Performed By: #### C DP, CMPF #### [facility] [address] [place] [address] Dr[place], [place] [address] Spinneret Cleaner: Jarod Bernardo MD Basophils/100 WBC (Bld) 1 % Normal 0-2 [facility] Comment on above: Performed By: #### C DP, CMPF #### [address] [place], [place] [address] Spinneret Cleaner: Jarod Bernardo MD Eosinophils (Bld) [#/Vol] 0.12 10*3/uL Normal 0.00-0.44 [facility] Comment on above: Performed By: #### C DP, CMPF #### [address] [place] [address] Spinneret Cleaner: Jarod Bernardo MD Eosinophils/100 WBC (Bld) 2 % Normal 1-4 [facility] Comment on above: Performed By: #### C DP, CMPF #### [address] [place], [place] [address] Spinneret Cleaner: Jarod Bernardo MD Erythrocyte distribution width (RBC) [Ratio] 15.4 % High 11.8-14.4 [facility] Comment on above: Performed By: #### C DP, CMPF #### [address] [place], [place] [address] Spinneret Cleaner: Jarod Bernardo MD Hematocrit (Bld) [Volume fraction] 37.3 % Normal 36.3-47.1 [facility] Comment on above: Performed By: #### C DP, CMPF #### [address] [place], [facility] Spinneret Cleaner: Jarod Bernardo MD Hemoglobin (Bld) [Mass/Vol] 11.3 g/dL Low 11.9-15.1 [facility] Comment on above: Performed By: #### C DP, CMPF #### [facility] [address] [place], [place] [phone] Spinneret Cleaner: Jarod Benrardo MD Immature granulocytes/100 WBC (Bld) 1 % High 0 [facility] Comment on above: Performed By: #### C DP, CMPF #### [address] [place], [facility] Spinneret Cleaner: Jarod Bernardo MD Lymphocytes (Bld) [#/Vol] 2.00 10*3/uL Normal 1.10-3.70 [facility] Comment on above: Performed By: #### C DP, CMPF #### [address] [place], [facility] Spinneret Cleaner: Jarod Bernardo MD Lymphocytes/100 WBC (Bld) 25 % Normal 24-43 [facility] Comment on above: Performed By: #### C DP, CMPF #### [address] [place], [facility] Spinneret Cleaner: Jarod Bernardo MD MCH (RBC) [Entitic mass] 26.3 pg Normal 25.2-33.5 [facility] Comment on above: Performed By: #### C DP, CMPF #### [address] [place], [facility] Spinneret Cleaner: Jarod Bernardo MD MCHC (RBC) [Mass/Vol] 30.3 g/dL Normal 28.4-34.8 [facility] Comment on above: Performed By: #### C DP, CMPF #### [address] [place] [address] Spinneret Cleaner: Jarod Bernardo MD MCV (RBC) [Entitic vol] 86.9 fL Normal 82.6-102.9 [facility] Comment on above: Performed By: #### C DP, CMPF #### [address] [place], [place] [id number] Spinneret Cleaner: Jarod Bernardo MD Monocytes (Bld) [#/Vol] 0.55 10*3/uL Normal 0.10-1.20 [facility] Comment on above: Performed By: #### C DP, CMPF #### [address] [place], [place] [id number] Spinneret Cleaner: Jarod Bernardo MD Monocytes/100 WBC (Bld) 7 % Normal 3-12 [facility] Comment on above: Performed By: #### C DP, CMPF #### [address] [place], [place] [address] Spinneret Cleaner: Jarod Bernardo MD Neutrophil (Seg) 64 % Normal 36-65 [facility] Comment on above: Performed By: #### C DP, CMPF #### [address] [place], [facility] Spinneret Cleaner: Jarod Bernardo MD NRBC Automated 0.0 per 100 WBC Normal 0.0 [facility] Comment on above: Performed By: #### C DP, CMPF #### [address] [place], [facility] Spinneret Cleaner: Jarod Bernardo MD Platelet mean volume (Bld) [Entitic vol] 9.3 fL Normal 8.1-13.5 [facility] Comment on above: Performed By: #### C DP, CMPF #### [address] [place], [place] [address]008683 Spinneret Cleaner: Jarod Bernardo MD Platelets (Bld) [#/Vol] 395 10*3/uL Normal 138-453 [facility] Comment on above: Performed By: #### C DP, CMPF #### [address] [place], [place] 2395083 Spinneret Cleaner: Jarod Bernardo MD RBC (Bld) [#/Vol] 4.29 10*6/uL Normal 3.95-5.11 [facility] Comment on above: Performed By: #### C DP, CMPF #### [facility] [address] [place], [place] 9708383 Spinneret Cleaner: Jarod Bernardo MD WBC (Bld) [#/Vol] 7.9 10*3/uL Normal 3.5-11.3 [facility] Comment on above: Performed By: #### C DP, CMPF #### [facility] [address] [place] [address] [place] [address] Spinneret Cleaner: Jarod Bernardo MD Comp Metabol,[facility] 05-10 Albumin [Mass/Vol] 4.2 g/dL Normal 3.5-5.2 [facility] Comment on above: Performed By: #### C DP, CMPF #### [address] [place] [address] Spinneret Cleaner: Jarod Bernardo MD Albumin/Glob Ratio 1.4 Normal 1.0-2.5 [facility] Comment on above: Performed By: #### C DP, CMPF #### [address] [place] [address] Spinneret Cleaner: Jarod Bernardo MD Alkaline Phos 69 U/L Normal 35-104 [facility] Comment on above: Performed By: #### C DP, CMPF #### [facility] [address] [place] [address] [place] [address] Spinneret Cleaner: Jarod Bernardo MD ALT [Catalytic activity/Vol] 18 U/L Normal 5-33 [facility] Comment on above: Performed By: #### C DP, CMPF #### [address] [place], [place] [address]27183 Spinneret Cleaner: Jarod Bernardo MD Anion gap [Moles/Vol] 10 mmol/L Normal 9-17 [facility] Comment on above: Performed By: #### C DP, CMPF #### [facility] [address] [place], [place] [address]83 Spinneret Cleaner: Jarod Bernardo MD AST [Catalytic activity/Vol] 16 U/L Normal <32 [facility] Comment on above: Performed By: #### C DP, CMPF #### [facility] [address] [place], [place] [phone] Spinneret Cleaner: Jarod Bernardo MD Bilirubin [Mass/Vol] 0.4 mg/dL Normal 0.3-1.2 [facility] Comment on above: Performed By: #### C DP, CMPF #### [facility] [address] [place], [place] 2377183 Spinneret Cleaner: Jarod Bernardo MD BUN/CRE Ratio 16 Normal 9-20 [facility] Comment on above: Performed By: #### C DP, CMPF #### [facility] [address] [place], [place] [address]27683 Spinneret Cleaner: Jarod Bernardo MD Calcium [Mass/Vol] 9.0 mg/dL Normal 8.6-10.4 [facility] Comment on above: Performed By: #### C DP, CMPF #### [facility] [address] [place], [place] [address]83 Spinneret Cleaner: Jarod Bernardo MD Chloride [Moles/Vol] 106 mmol/L Normal 98-107 [facility] Comment on above: Performed By: #### C DP, CMPF #### [facility] [address] [place], [place] [address]83 Spinneret Cleaner: Jarod Bernardo MD CO2 [Moles/Vol] 23 mmol/L Normal 20-31 [facility] Comment on above: Performed By: #### C DP, CMPF #### [facility] [address] [place], [place] [address]83 Spinneret Cleaner: Jarod Bernardo MD Creatinine [Mass/Vol] 0.5 mg/dL Normal 0.5-0.9 [facility] Comment on above: Performed By: #### C LIZZETTE, CMPF #### [facility] [address] [place] [address] Spinneret Cleaner: Jarod Bernardo MD GFR/1.73 sq M.predicted among non-blacks MDRD (S/P/Bld) [Vol rate/Area] mL/min/{1.73_m2} Normal >60 [facility] Comment on above: Result Comment: These results [...] Performed By: #### C DP, CMPF #### [facility] [address] [place] [address] [place] [address] Spinneret Cleaner: Jarod Bernardo MD Glucose [Mass/Vol] 99 mg/dL Normal 70-99 [facility] Comment on above: Performed By: #### C DP, CMPF #### [address] [place], [place] [address]110083 Spinneret Cleaner: Jarod Bernardo MD Potassium [Moles/Vol] 4.1 mmol/L Normal 3.7-5.3 [facility] Comment on above: Performed By: #### C DP, CMPF #### [facility] [address] [place] [address] Spinneret Cleaner: Jarod Bernardo MD Protein [Mass/Vol] 7.2 g/dL Normal 6.4-8.3 [facility] Comment on above: Performed By: #### C DP, CMPF #### [facility] [address] [place] [address] Spinneret Cleaner: Jarod Bernardo MD Sodium [Moles/Vol] 139 mmol/L Normal 135-144 [facility] Comment on above: Performed By: #### C LIZZETTE, CMPF #### [facility] [address] [place], [place] 1240483 Spinneret Cleaner: Jarod Bernardo MD Urea nitrogen [Mass/Vol] 8 mg/dL Normal 6-20 [facility] Comment on above: Performed By: #### C LIZZETTE, CMPF #### [facility] [address] [place], [place] [id number] Spinneret Cleaner: Jarod Bernardo MD Lipid Profileon 05-10-2023 Cholesterol [Mass/Vol] 225 mg/dL High 0-199 [facility] Comment on above: Result Comment: Cholesterol Guidelines: <200 Desirable 200-240 Borderline >240 Undesirable Performed By: #### L IPR #### [address] [address] Spinneret Cleaner: Italo English MD Cholesterol in HDL [Mass/Vol] 56 mg/dL Normal >40 [facility] Comment on above: Result Comment: HDL Guidelines: <40 Undesirable 40-59 Borderline >59 Desirable Performed By: #### L IPR #### [address] [address] Spinneret Cleaner: Italo English MD Cholesterol in LDL [Mass/Vol] 137 mg/dL High 0-100 [facility] Comment on above: Result Comment: LDL Guidelines: <100 Desirable 100-129 Near to/above Desirable 130-159 Borderline >159 Undesirable Direct (measured) LDL and calculated LDL are not interchangeable tests. Performed By: #### L IPR #### [address] [address] Spinneret Cleaner: Italo English MD Cholesterol in VLDL [Mass/Vol] 33 mg/dL Normal [facility] Comment on above: Performed By: #### L IPR #### [address] [id number] Spinneret Cleaner: Italo English MD Cholesterol.total/Chol esterol in HDL [Mass ratio] 4.0 {ratio} Normal [facility] Comment on above: Performed By: #### L IPR #### [facility] [address] [place], [place] [id number] Spinneret Cleaner: Italo English MD Triglyceride [Mass/Vol] 163 mg/dL High 0-149 [facility] Comment on above: Result Comment: Triglyceride Guidelines: <150 Desirable 150-199 Borderline 200-499 High >499 Very high Based on AHA Guidelines for fasting triglyceride, May 2012. Performed By: #### L IPR #### [facility] [address] [place] [address] Spinneret Cleaner: Italo English MD .eGFRon 04-17-2023 GFR/1.73 sq M.predicted MDRD (S/P/Bld) [Vol rate/Area] mL/min/{1.73_m2} Normal >=60 [facility] Comment on above: Order Comment: Order added by Discern rule Result Comment: [facility] have implemented the eGFR calculation [...] Performed By: #### . Automated Diff #### [address] [address] AMI Initon 04-17-2023 Initial Myoglobin 20.5 ng/mL Normal 14.3-65.8 [facility] Comment on above: Performed By: #### A MI1 ####[address] [address] Initial Troponin <0.03 Normal 0.00-0.03 [facility] Comment on above: Result Comment: An i ncreased Troponin-I value, in the absence of myocardial ischemia, may indicate other etiologies of cardiac damage. Performed By: #### A MI1 ####[address] [address] Basic Metabolic Profileon Creatinine [Mass/Vol] 0.75 mg/dL Normal 0.44-1.03 [facility] Comment on above: Performed By: #### A MI2 #### [address] [address] Urea nitrogen [Mass/Vol] 7 mg/dL Low 8-26 [facility] Comment on above: Performed By: #### A MI2 #### [address] [address] Urea nitrogen/Creatinine [Mass ratio] 9.3 mg/mg Low 10.0-20.0 [facility] Comment on above: Performed By: #### A MI2 #### [address] [address] Anion gap [Moles/Vol] 12 mmol/L Normal 7-17 [facility] Comment on above: Performed By: #### A MI2 #### [address] [address] Calcium [Mass/Vol] 9.4 mg/dL Normal 8.5-10.3 [facility] Comment on above: Performed By: #### A MI2 #### [address] [address] Chloride [Moles/Vol] 109 mmol/L Normal 98-110 [facility] Comment on above: Performed By: #### A MI2 #### [address] [address] CO2 [Moles/Vol] 21 mmol/L Low 22-32 [facility] Comment on above: Performed By: #### A MI2 #### [address] [address] Glucose [Mass/Vol] 106 mg/dL High 70-99 [facility] Comment on above: Performed By: #### A MI2 #### [address] [address] Potassium [Moles/Vol] 3.7 mmol/L Normal 3.4-4.8 [facility] Comment on above: Performed By: #### A MI2 #### [address] [address] Sodium [Moles/Vol] 138 mmol/L Normal 133-142 [facility] Comment on above: Performed By: #### A MI2 #### [address] [address] CBC w/ Diffon 04-17-2023 Erythrocyte distribution width (RBC) [Ratio] 16.1 % High 11.6-14.8 [facility] Comment on above: Performed By: #### . Automated Diff #### [address] [address] Hematocrit (Bld) [Volume fraction] 39.7 % Normal 36.0-46.0 [facility] Comment on above: Performed By: #### . Automated Diff #### [address] [address] Hemoglobin (Bld) [Mass/Vol] 13.0 g/dL Normal 12.0-16.0 [facility] Comment on above: Performed By: #### . Automated Diff #### [address] [address] MCH (RBC) [Entitic mass] 26.9 pg Low 27.0-35.0 [facility] Comment on above: Performed By: #### . Automated Diff #### [address] [address] MCHC 32.8 % Normal 31.0-37.0 [facility] Comment on above: Performed By: #### . Automated Diff #### [address] [address] MCV (RBC) [Entitic vol] 82.3 fL Normal 80.0-100.0 [facility] Comment on above: Performed By: #### . Automated Diff #### [place] [id number] Platelet 357 x10*3/mcL Normal 150-450 [facility] Comment on above: Performed By: #### . Automated Diff #### [place] [id number] Platelet mean volume (Bld) [Entitic vol] 8.2 fL Normal 6.7-10.6 [facility] Comment on above: Performed By: #### . Automated Diff #### [place] [address]89[address] RBC 4.83 x10*6/mcL Normal 3.80-5.20 [facility] Comment on above: Performed By: #### . Automated Diff #### [place] [address] WBC 11.7 x10*3/mcL High 4.5-11.0 [facility] Comment on above: Performed By: #### . Automated Diff #### [place] [id number] COV19 Rapidon 04-17-2023 LAB ONLY Result Called? No Normal [facility] Comment on above: Performed By: #### C [id number] #### [place] [id number] Reason for Rapid Test COVID Exposure Normal [facility] Comment on above: Performed By: #### C [id number] #### [place] [id number] SARS-CoV-2 (COVID-19) RNA OLEGARIO+probe Ql (Unsp spec) Negative Normal Negative [facility] Comment on above: Result Comment: The 2019 [...] using the ID NOW COVID-19 test by [employer], which has received Emergency Use Authorization (EUA) by the U.S. Food and Drug Administration. The [employer] ID NOW COVID-19 test performs best when [...] following links: Fact Sheet for HealthCare Providers: https://www.fda.gov/media/866460/download Fact Sheet for Patients: https://www.fda.gov/media/252731/download Performed By: #### C [id number] #### [address] [place] [address] D-Dimeron 04-17-2023 D-Dimer 0.27 mg/L feu Normal 0.00-0.49 [facility] Comment on above: Result Comment: Resu lts of the D-Dimer test should always be interpreted in conjunction with the patient's medical history, clinical presentation, and other findings. Results <0.5 mg/L are considered NEGATIVE for VTE. Results >= 0.5 mg/L require further clinical evaluation. Levels of triglyceride up to 600 mg/dl do not interfere with this D-Dimer assay. Performed By: #### D GAYLA ####[address] [address] Diff Autoon 04-17-2023 Baso Absolute 0.1 x10*3/mcL Normal 0.0-0.2 [facility] Comment on above: Performed By: #### . Automated Diff #### [address] [address] Basophils/100 WBC (Bld) 1.0 % Normal 0.0-1.5 [facility] Comment on above: Performed By: #### . Automated Diff #### [address] [address] Eos Absolute 0.1 x10*3/mcL Normal 0.0-0.4 [facility] Comment on above: Performed By: #### . Automated Diff #### [address] [address] Eosinophils/100 WBC (Bld) 1.0 % Normal 0.0-5.4 [facility] Comment on above: Performed By: #### . Automated Diff #### [address] [address] Lymph Absolute 2.0 x10*3/mcL Normal 1.0-4.8 [facility] Comment on above: Performed By: #### . Automated Diff #### [address] [address] Lymphocytes/100 WBC (Bld) 17.5 % Low 27.2-40.8 [facility] Comment on above: Performed By: #### . Automated Diff #### [address] [address] Weber Absolute 0.9 x10*3/mcL Normal 0.1-1.1 [facility] Comment on above: Performed By: #### . Automated Diff #### [address] [address] Monocytes/100 WBC (Bld) 7.7 % Normal 3.7-11.9 [facility] Comment on above: Performed By: #### . Automated Diff #### [address] [address] Neutro Absolute 8.5 x10*3/mcL High 1.8-7.7 [facility] Comment on above: Performed By: #### . Automated Diff #### [address] [address] Neutro Auto 72.8 % High 47.2-70.8 [facility] Comment on above: Performed By: #### . Automated Diff #### [address] [address] ED Clinical Summaryon 2022 ED Clinical Summary [address] [address] ED Clinical Summary Person Information Name: Evelyne Allen/Magdalena Age: 28 Years : 1995 Sex: Female PCP: Misbah Gamble DO Marital Status: Single Phone: Race: White Ethnicity: Not or Language: Danish Visit Reason: Cough; Shortness of breath; shortness of breath Acuity: 3 Enc Type: Emergency Med Service: Emergency Medicine Arrival: 04/17/2023 09:54:08 Discharge: 04/17/2023 13:11:00 LOS: 000 03:17 Checkin: 04/17/2023 09:54:08 Checkout: 04/17/2023 13:11:00 Dispo Type: Home or Self Care Address: [address] [id number] Provider Notes: History of Present Illness Patient [...] range between ( 27.2 and 40.8 ) Weber Auto: 7.7 % -- Normal range between [...] range between ( 36.0 and 46.0 ) Weber Absolute: 0.9 x10 MCH: 26.9 pg -- [...] 65.8 ) (more content not included)... Normal [facility] ED Note-Physicianon 04-17-20 ED Note-Physician Chief Complaint [...] _ ? NEXUS C-spine Criteria: _ ? [place] Ankle Rule: _ ? [place] Knee Rule: _ ? Wells Criteria for [...] 8 g, 0 Refill(s), Pharmacy: [facility] #[id number] azithromycin, 1 packets, Oral, As Indicated, as directed on package labeling, X 5 days, # 6 tabs, 0 Refill(s), 04/22/23 12:50:00 EDT, Pharmacy: [facility] #[id number] methylPREDNISolone, 125 mg, IV Push, Powder-Inj, Once, First Dose: 04/17/23 12:50:00 EDT, Stop Date: 04/17/23 12:50:00 EDT, STAT, Dispense From Location: [facility], 04/17/23 12:50:00 EDT predniSONE, 2 tabs, Oral, Daily, X 5 days, # 10 tabs, 0 Refill(s), 04/22/23 12:50:00 EDT, Pharmacy: [facility] #[id number] 2. Smoker Ordered: albuterol, 1 puffs, Inhale, q4hr, PRN, # 8 g, 0 Refill(s), Pharmacy: [facility] #[id number] azithromycin, 1 packets, Oral, As Indicated, as directed on package labeling, X 5 days, # 6 tabs, 0 Refill(s), 04/22/23 12:50:00 EDT, Pharmacy: [facility] #[id number] methylPREDNISolone, 125 mg, IV Push, Powder-Inj, Once, First Dose: 04/17/23 12:50:00 EDT, Stop Date: 04/17/23 12:50:00 EDT, STAT, Dispense From Location: [facility], 04/17/23 12:50:00 EDT predniSONE, 2 tabs, Oral, Daily, X 5 days, # 10 tabs, 0 Refill(s), 04/22/23 12:50:00 EDT, Pharmacy: [facility] #[id number] Orders: Discharge Patient EKG Refresh (more content not included)... Normal [facility] Flu A&B Ag Rapidon 3 Influenza A Ag Negative Normal Negative [facility] Comment on above: Performed By: #### C [id number] #### [address] [address] Influenza B Ag Negative Normal Negative [facility] Comment on above: Result Comment: [employer] Influenza A+B Card 2 detects both viable [...] public health departments. Performed By: #### C [id number] #### [address] [address] Procalcitonin Levelon 2022 Procalcitonin Lvl <0.05 Normal <=0.49 [facility] Comment on above: Result Comment: < [...] Performed By: #### . Automated Diff #### [place] [id number] S Preg Qlon 04-17-2023 Serum Preg Negative Normal [facility] Comment on above: Result Comment: The hCG Combo Rapid Test has a sensitivity of 10 mIU/mL in serum and is capable of detecting as early as 1 day after the first missed menses. Performed By: #### . Automated Diff #### [place] [id number] XR Chest 1 Viewon 04-17-2023 XR Chest [...] Electronically Signed in Other Vendor System) Normal [facility] ED Clinical Summaryon 2022 ED Clinical Summary [address] [address] ED Clinical Summary Person Information Name: Evelyne Allen/Baldomero_Harry Age: 28 Years : 1995 Sex: Female PCP: Misbah Gamble DO Marital Status: Single Phone: Race: White Ethnicity: Not or Language: Danish Visit Reason: Back pain; Right hip pain Acuity: 4 Enc Type: Emergency Med Service: Emergency Medicine Arrival: 03/06/2023 14:17:39 Discharge: 03/06/2023 15:15:00 LOS: 000 00:58 Checkin: 03/06/2023 14:17:39 Checkout: 03/06/2023 15:15:00 Dispo Type: Home or Self Care Address: [address] [facility] [address] Provider Notes: Diagnosis: 1:Right lumbar radiculopathy Problems [...] weakness or other concerns With: Address: When: [address] [phone] Business (1) Within 2 to 4 days Comments: Recheck today's symptoms Discharge Orders: Discharge Patient 03/06/23 15:02:00 EDT, Discharge to Home, Self Patient Education Information: Back Pain (Acute or Chronic); Sciatica; Back Pain (Acute or Chronic) [facility] Poison Help line: . [facility] Hotline: [place] Tobacco Quit Line: [facility] ([place], [place]) [address]: [phone] [facility] ([place], [place]) [address]: [phone] [facility] [address] [place], [place]: [phone] Normal [facility] ED Note-Physicianon 03-06-20 ED Note-Physician Chief Complaint [...] ED as well as a one time Wadsworth which greatly improves her pain. Review of [...] in all quadrants] Back: [Right low back hanger to palpation. Normal range of motion. No swelling, no ecchymosis. Straight leg raises normal] : [No costovertebral angle tenderness] Musculoskeletal/Extr emity: [Right buttock/hip and upper leg tender to palpation. No gross deformity, no edema, no erythema. Normal range of motion. Pulses and sensation intact] Skin: [[place], warm, dry, no injury, no rashes] Neuro: [...] _ ? NEXUS C-spine Criteria: _ ? [place] Ankle Rule: _ ? [place] Knee Rule: _ ? Wells Criteria for DVT: _ ? Wells Criteria for PE: _ Discussed with: _ Treatment and Disposition ED Course: Patient w/acute on chronic back pain, similar to previous flares. Right low back hanger on exam. Patient is declining imaging and Rx medication at this time stating she would just like a dose of medication here in ED. Vitals are stable, patient is neurovascularly intact. Toradol, Norflex, Dexamethasone and a dose of Wadsworth given here in ED w/relief. Will d/c [...] No qualifying data Procedure/Surgical History DNC 2014 O[place]itic Teeth Medications Inpatient dexamethasone, 8 mg= 2 mL, IM, Once Wadsworth 5 mg-325 mg oral tablet, 1 tabs, Oral, Once orphenadrine, 60 mg= 2 mL, IM, Once Toradol, 30 mg= 1 mL, IM, (more content not included)... Normal [facility] .UA Microscp Aon 11-27-2022 UA RBC Quant 0 /HPF Normal 0-5 [facility] Comment on above: Performed By: #### . Urinalysis Microscopic Auto ####[address] [address] UA Squepi Cells Quant 1 /HPF Normal 0-29 [facility] Comment on above: Performed By: #### . Urinalysis Microscopic Auto ####[place] [id number] UA WBC Quant 1 /HPF Normal 0-5 [facility] Comment on above: Performed By: #### . Urinalysis Microscopic Auto ####[place] [id number] .eGFRon 11-27-2022 GFR/1.73 sq M.predicted MDRD (S/P/Bld) [Vol rate/Area] mL/min/{1.73_m2} Normal >=60 [facility] Comment on above: Result Comment: [facility] have implemented the eGFR calculation [...] years Performed By: #### A MI2 #### [address] [address] AMI 2Hron 11-27-2022 2 Hour Myoglobin 10.1 ng/mL Low 14.3-65.8 [facility] Comment on above: Performed By: #### A MI2 #### [place] [id number] 2 Hour Troponin <0.03 Normal 0.00-0.03 [facility] Comment on above: Result Comment: An i ncreased Troponin-I value, in the absence of myocardial ischemia, may indicate other etiologies of cardiac damage. Performed By: #### A MI2 #### [address] [address] AMI Initon 11-27-2022 Initial Myoglobin 12.8 ng/mL Low 14.3-65.8 [facility] Comment on above: Performed By: #### A MI1 ####[address] [address] Initial Troponin <0.03 Normal 0.00-0.03 [facility] Comment on above: Result Comment: An i ncreased Troponin-I value, in the absence of myocardial ischemia, may indicate other etiologies of cardiac damage. Performed By: #### A MI1 ####[address] [address] BNPon 11-27-2022 Natriuretic peptide B (Bld) [Mass/Vol] 14 pg/mL Normal 0-100 [facility] Comment on above: Performed By: #### . Automated Diff #### [address] [address] CBC w/ Diffon 11-27-2022 Erythrocyte distribution width (RBC) [Ratio] 16.6 % High 11.6-14.8 [facility] Comment on above: Performed By: #### . Automated Diff #### [address] [address] Hematocrit (Bld) [Volume fraction] 40.0 % Normal 36.0-46.0 [facility] Comment on above: Performed By: #### . Automated Diff #### [address] [address] Hemoglobin (Bld) [Mass/Vol] 13.2 g/dL Normal 12.0-16.0 [facility] Comment on above: Performed By: #### . Automated Diff #### [address] [address] MCH (RBC) [Entitic mass] 28.3 pg Normal 27.0-35.0 [facility] Comment on above: Performed By: #### . Automated Diff #### [address] [address] MCHC 32.9 % Normal 31.0-37.0 [facility] Comment on above: Performed By: #### . Automated Diff #### [place] [address] MCV (RBC) [Entitic vol] 86.0 fL Normal 80.0-100.0 [facility] Comment on above: Performed By: #### . Automated Diff #### [place] [id number] Platelet 282 x10*3/mcL Normal 150-350 [facility] Comment on above: Performed By: #### . Automated Diff #### [place] 5018940 Platelet mean volume (Bld) [Entitic vol] 8.7 fL Normal 6.7-10.6 [facility] Comment on above: Performed By: #### . Automated Diff #### [place] [address] RBC 4.66 x10*6/mcL Normal 3.80-5.20 [facility] Comment on above: Performed By: #### . Automated Diff #### [place] [address] WBC 6.4 x10*3/mcL Normal 4.5-11.0 [facility] Comment on above: Performed By: #### . Automated Diff #### [place] [address] CMPon 11-27-2022 Albumin [Mass/Vol] 3.7 g/dL Normal 3.2-4.9 [facility] Comment on above: Performed By: #### . Automated Diff #### [place] [address]8940 Albumin/Globulin [Mass ratio] 1.2 {ratio} Normal 1.1-2.2 [facility] Comment on above: Performed By: #### . Automated Diff #### [place] 5018940 Alk Phos 75 IU/L Normal 32-91 [facility] Comment on above: Performed By: #### . Automated Diff #### [place] 5018940 ALT [Catalytic activity/Vol] 16 U/L Normal 14-54 [facility] Comment on above: Performed By: #### . Automated Diff #### [address] [address] Anion gap [Moles/Vol] 8 mmol/L Normal 7-17 [facility] Comment on above: Performed By: #### . Automated Diff #### [address] [address] AST [Catalytic activity/Vol] 16 U/L Normal 15-41 [facility] Comment on above: Performed By: #### . Automated Diff #### [address] [address] Bili Total 0.3 mg/dL Normal 0.3-1.2 [facility] Comment on above: Performed By: #### . Automated Diff #### [address] [address] Calcium [Mass/Vol] 9.0 mg/dL Normal 8.5-10.3 [facility] Comment on above: Performed By: #### . Automated Diff #### [address] [address] Chloride [Moles/Vol] 106 mmol/L Normal 98-110 [facility] Comment on above: Performed By: #### . Automated Diff #### [address] [address] CO2 [Moles/Vol] 24 mmol/L Normal 22-32 [facility] Comment on above: Performed By: #### . Automated Diff #### [address] [address] Creatinine [Mass/Vol] 0.67 mg/dL Normal 0.44-1.03 [facility] Comment on above: Performed By: #### . Automated Diff #### [address] [address] Glucose [Mass/Vol] 92 mg/dL Normal 70-99 [facility] Comment on above: Performed By: #### . Automated Diff #### [address] [address] Potassium [Moles/Vol] 3.5 mmol/L Normal 3.4-4.8 [facility] Comment on above: Performed By: #### . Automated Diff #### [address] [address] Protein [Mass/Vol] 6.9 g/dL Normal 6.5-8.1 [facility] Comment on above: Performed By: #### . Automated Diff #### [address] [address] Sodium [Moles/Vol] 135 mmol/L Normal 133-142 [facility] Comment on above: Performed By: #### . Automated Diff #### [address] [address] Urea nitrogen [Mass/Vol] 7 mg/dL Low 8-26 [facility] Comment on above: Performed By: #### . Automated Diff #### [address] [address] Urea nitrogen/Creatinine [Mass ratio] 10.4 mg/mg Normal 10.0-20.0 [facility] Comment on above: Performed By: #### . Automated Diff #### [address] [address] COV19 Rapidon 11-27-2022 LAB ONLY Result Called? No Normal [facility] Comment on above: Performed By: #### C [id number] ####[address] [address] Reason for Rapid Test COVID Exposure Normal [facility] Comment on above: Performed By: #### C [id number] ####[address] [address] SARS-CoV-2 (COVID-19) RNA OLEGARIO+probe Ql (Unsp spec) Negative Normal Negative [facility] Comment on above: Result Comment: The 2019 [...] using the ID NOW COVID-19 test by [employer], which has received Emergency Use Authorization (EUA) [...] following links: Fact Sheet for HealthCare Providers: https://www.fda.gov/media/609564/download Fact Sheet for Patients: https://www.fda.gov/media/664434/download Performed By: #### C [id number] ####[address] [address] CRPon 11-27-2022 CRP 0.30 mg/dL Normal 0.00-0.75 [facility] Comment on above: Result Comment: CRP measurement is useful for assessment of non-specific INFLAMMATORY RESPONSE to infection or injury AND is a sensitive MARKER of ACUTE INFLAMMATION including CARDIAC RISK ASSESSMENT. CARDIAC patients with elevated CRP are POTENTIALLY at a HIGHER RISK OF FUTURE CARDIAC EVENTS. Performed By: #### C RP ####[address] [place] [address] Diff Autoon 11-27-2022 Baso Absolute 0.0 x10*3/mcL Normal 0.0-0.2 [facility] Comment on above: Performed By: #### . Automated Diff #### [address] [place] [address] Basophils/100 WBC (Bld) 0.8 % Normal 0.0-1.5 [facility] Comment on above: Performed By: #### . Automated Diff #### [address] [address] Eos Absolute 0.2 x10*3/mcL Normal 0.0-0.4 [facility] Comment on above: Performed By: #### . Automated Diff #### [address] [address] Eosinophils/100 WBC (Bld) 3.9 % Normal 0.0-5.4 [facility] Comment on above: Performed By: #### . Automated Diff #### [address] [address] Lymph Absolute 2.5 x10*3/mcL Normal 1.0-4.8 [facility] Comment on above: Performed By: #### . Automated Diff #### [address] [address] Lymphocytes/100 WBC (Bld) 39.3 % Normal 27.2-40.8 [facility] Comment on above: Performed By: #### . Automated Diff #### [address] [address] Weber Absolute 0.7 x10*3/mcL Normal 0.1-1.1 [facility] Comment on above: Performed By: #### . Automated Diff #### [address] [address] Monocytes/100 WBC (Bld) 11.1 % Normal 3.7-11.9 [facility] Comment on above: Performed By: #### . Automated Diff #### [address] [address] Neutro Absolute 2.9 x10*3/mcL Normal 1.8-7.7 [facility] Comment on above: Performed By: #### . Automated Diff #### [address] [address] Neutro Auto 44.9 % Low 47.2-70.8 [facility] Comment on above: Performed By: #### . Automated Diff #### [address] [address] ED Clinical Summaryon 2022 ED Clinical Summary [address] [address] ED Clinical Summary Person Information Name: Evelyne Allen/Magdalena Age: 27 Years : 1995 Sex: Female PCP: Misbah Gamble DO Marital Status: Single Phone: Race: White Ethnicity: Not or Language: Danish Visit Reason: Shortness of breath; Dyspnea - adult Acuity: 3 Enc Type: Emergency Med Service: Emergency Medicine Arrival: 11/27/2022 11:49:27 Discharge: 11/27/2022 16:01:00 LOS: 000 04:12 Checkin: 11/27/2022 11:49:27 Checkout: 11/27/2022 16:01:00 Dispo Type: Home or Self Care Address: [facility] [address] [place] [id number] Provider Notes: Diagnosis: 1:Dyspnea; 2:Edema; 3:Bronchitis; 4:Chest [...] range between ( 27.2 and 40.8 ) Weber Auto: 11.1 % -- Normal range between [...] range between ( 36.0 and 46.0 ) Weber Absolute: 0.7 x10 MCH: 28.3 pg -- [...] Final M (more content not included)... Normal [facility] ED Note-Physicianon 11-28-19 ED Note-Physician Chief Complaint [...] in this document, created by the medical physics teacher for me, accurately reflects the services I [...] _ ? NEXUS C-spine Criteria: _ ? [place] Ankle Rule: _ ? [place] Knee Rule: _ ? Wells Criteria for [...] PRN, # 6.7 g, 0 Refill(s), Pharmacy: [facility] #[id number] azithromycin, 1 tabs, Oral, Daily, X 5 days, # 5 tabs, (more content not included)... Normal [facility] Magnesiumon 11-27-2022 Magnesium [Mass/Vol] 1.8 mg/dL Normal 1.7-2.4 [facility] Comment on above: Performed By: #### M G ####[address] [address] PTon 11-27-2022 INR Coag (PPP) [Relative time] 0.9 {INR} Normal <=3.5 [facility] Comment on above: Result Comment: INR has no normal range. INR Therapeutic range is: 2.0-3.0 (AF, CVA, TIAs, DVT prophylaxis, acute DVT) 2.5-3.5 ([facility] heart valves, recurrent thrombosis/emboli) Performed By: #### . Automated Diff #### [address] [address] PT Coag (PPP) [Time] 9.9 s Normal 9.3-11.9 [facility] Comment on above: Performed By: #### . Automated Diff #### [address] [address] PTTon 11-27-2022 aPTT Coag (Bld) [Time] 27.2 s Normal 20.6-29.2 [facility] Comment on above: Performed By: #### A MI2 #### [address] [address] Procalcitonin Levelon 2022 Procalcitonin Lvl <0.05 Normal <=0.49 [facility] Comment on above: Result Comment: < [...] Performed By: #### . Automated Diff #### [place] [address] TSH w/ Rflx Free T4on 2022 TSH Qn 1.06 m[IU]/L Normal 0.45-5.33 [facility] Comment on above: Result Comment: Refe rence Ranges for individuals from to 18 years of age were obtained from The Lima Oscar Handbook (20 ed) published by [facility]. Reference Ranges for Females: Females, 1st Trimester 0.05 ? 3.7 uIU/mL Females, 2nd Trimester 0.31 ? 4.35 uIU/mL Females, 3rd Trimester 0.41 ? 5.18 uIU/mL Performed By: #### A MI2 #### [place] [id number] UA w Culture if Indon 2022 Color (U) Colorless Normal [facility] Comment on above: Performed By: #### U CI ####[place] [id number] Ketones Ql (U) Negative Normal Negative [facility] Comment on above: Performed By: #### U CI ####[address] [address] UA Blood Negative Normal Negative [facility] Comment on above: Performed By: #### U CI ####[place] [id number] UA Clarity Clear Normal [facility] Comment on above: Performed By: #### U CI ####[address] [address] UA Glucose Normal Normal Negative [facility] Comment on above: Performed By: #### U CI ####[address] [address] UA Leukocyte Esterase Negative Normal Negative [facility] Comment on above: Performed By: #### U CI ####[address] [address] UA Nitrite Negative Normal Negative [facility] Comment on above: Performed By: #### U CI ####[address] [address] UA pH 6.0 Normal 4.5 - 7.8 [facility] Comment on above: Performed By: #### U CI ####[address] [address] UA Protein Negative Normal Negative [facility] Comment on above: Performed By: #### U CI ####[address] [address] UA Source Clean Catch Normal [facility] Comment on above: Performed By: #### U CI ####[address] [address] UA Spec Grav 1.003 Normal 1.003-1.035 [facility] Comment on above: Performed By: #### U CI ####[address] [address] UA Urobilinogen Normal Normal 0.2 - 1.0 [facility] Comment on above: Performed By: #### U CI ####[address] [address] Urobilinogen (U) [Mass/Vol] Negative Normal Negative [facility] Comment on above: Performed By: #### U CI ####[address] [address] XR Chest 1 Viewon 11-27-2022 XR Chest [...] Electronically Signed in Other Vendor System) Normal [facility] UrinalysisOrdered By: Jade Hicks on 02-09-2021 Bilirubin Urine Negative NEGATIVE [facility] Work Phone: Color, UA YELLOW YELLOW [facility] [email or web address] Work Phone: Glucose, Ur Negative NEGATIVE [facility] [email or web address] Work Phone: Interpretation and review of laboratory results Abnormal [facility] [email or web address] Work Phone: Ketones Ql (U) Negative NEGATIVE [facility] Work Phone: Leukocyte esterase Test strip Ql (U) Negative NEGATIVE [facility] [email or web address] Work Phone: Nitrite, Urine Negative NEGATIVE [facility] Work Phone: pH, UA 7.0 [facility] [email or web address] Work Phone: Protein, UA Negative NEGATIVE [facility] [email or web address] Work Phone: Specific [place], UA <1.005 [facility] [email or web address] Work Phone: Turbidity UA CLEAR CLEAR [facility] [email or web address] Work Phone: Urinalysis Comments NOT REPORTED [facility] [email or web address] Work Phone: Urine Hgb Negative NEGATIVE [facility] [email or web address] Work Phone: Urobilinogen, Urine Normal Normal [facility] [email or web address] Work Phone: [employer] Work Phone: Vital Signs Date Time Vital Sign Value Performing Clinician Librado jackson 05-04-2022 22:48-0400 Body temperature 97.3 [degF] Carl Andes DO Work Phone: [employer] 05-04-2022 22:48-0400 Diastolic blood pressure 79 mm[Hg] Carl Andes DO Work Phone: [employer] 05-04-2022 22:48-0400 Heart rate 83 /min Carl Andes DO Work Phone: [employer] 05-04-2022 22:48-0400 Respiratory rate 17 /min Carl Andes DO Work Phone: [facility] [place] 05-04-2022 22:48-0400 SaO2% (BldA) [Mass fraction] 98 % Carl Andes DO Work Phone: [employer] 05-04-2022 22:48-0400 Systolic blood pressure 116 mm[Hg] Carl Andes DO Work Phone: [facility] [place] 02-09-2021 17:15-0400 Body height 172.7 cm Jade Kurt MAINTENANCE SUPERVISOR ELECTRICAL - CNM Work Phone: [employer] Work Phone: 02-09-2021 17:15-0400 Body mass index (BMI) [Ratio] 37.86 kg/m2 Jade Kurt MAINTENANCE SUPERVISOR ELECTRICAL - CNM Work Phone: [employer] Work Phone: 02-09-2021 17:15-0400 Body temperature 97.81 [degF] Jade Kurt MAINTENANCE SUPERVISOR ELECTRICAL - CNM Work Phone: [employer] Work Phone: 02-09-2021 17:15-0400 Body weight 112.95 kg Jade Givensr MAINTENANCE SUPERVISOR ELECTRICAL - CNM Work Phone: [employer] Work Phone: 02-09-2021 17:15-0400 Diastolic blood pressure 64 mm[Hg] Jade Kurt MAINTENANCE SUPERVISOR ELECTRICAL - CNM Work Phone: [employer] Work Phone: 02-09-2021 17:15-0400 Heart rate 88 /min Jade Kurt MAINTENANCE SUPERVISOR ELECTRICAL - CNM Work Phone: [employer] Work Phone: 02-09-2021 17:15-0400 Respiratory rate 18 /min Jade Kurt MAINTENANCE SUPERVISOR ELECTRICAL - CNM Work Phone: [employer] Work Phone: 02-09-2021 17:15-0400 Systolic blood pressure 122 mm[Hg] Jade Kurt MAINTENANCE SUPERVISOR ELECTRICAL - CNM Work Phone: [employer] Work Phone: 02-09-2021 16:33-0400 Body temperature 97.2 [degF] Casimiro Campos MD Work Phone: [employer] Work Phone: 02-09-2021 16:33-0400 Diastolic blood pressure 70 mm[Hg] Casimiro Campos MD Work Phone: [employer] Work Phone: 02-09-2021 16:33-0400 Heart rate 93 /min Casimiro Campos MD Work Phone: [employer] Work Phone: 02-09-2021 16:33-0400 Respiratory rate 18 /min Casimiro Campos MD Work Phone: [employer] Work Phone: 02-09-2021 16:33-0400 SaO2% (BldA) [Mass fraction] 98 % Casimiro Campos MD Work Phone: [employer] Work Phone: 02-09-2021 16:33-0400 Systolic blood pressure 117 mm[Hg] Casimiro Campos MD Work Phone: [employer] Phone: 01-05-2021 17:09-0400 Body temperature 98.1 [degF] Sr [employer]TV DO Work Phone: [employer] Phone: 01-05-2021 17:09-0400 Diastolic blood pressure 74 mm[Hg] Sr [employer] Work Phone: [employer] Phone: 01-05-2021 17:09-0400 Heart rate 103 /min Sr [employer] Phone: [employer] Phone: 01-05-2021 17:09-0400 Respiratory rate 16 /min Sr [employer] Phone: [employer] Phone: 01-05-2021 17:09-0400 SaO2% (BldA) [Mass fraction] 97 % Sr [employer] Phone: [employer] Phone: 01-05-2021 17:09-0400 Systolic blood pressure 115 mm[Hg] Sr [employer] Phone: [employer] Phone: Encounters Encounter Date Encounter Type Care Provider Facility Start: 05-24-2024 End: 05-24-2024 Emergency department patient visit [facility] Start: 05-04-2024 End: 05-04-2024 Emergency department patient visit [facility] Start: 04-17-2024 End: 04-17-2024 Emergency department patient visit [facility] Start: 12-02-2023 End: 12-02-2023 Emergency department patient visit [facility] Start: 10-31-2023 End: 11-01-2023 Emergency department patient visit LAWANDA BESS [facility] Start: 08-02-2023 End: 08-02-2023 Emergency department patient visit MARY CRAWLEY [facility] Start: 08-02-2023 End: 08-02-2023 Emergency department patient visit GIGI Wallace [facility] Start: 06-27-2023 End: 06-27-2023 Emergency department patient visit GIGI Wallace [facility] Start: 06-27-2023 End: 06-27-2023 Emergency department patient visit MIGNON [facility] Start: 06-26-2023 End: 06-26-2023 Emergency department patient visit Sebastian CEVALLOS~[id number] [facility] Start: 06-14-2023 End: 06-14-2023 Emergency department patient visit GIGI Wallace [facility] Start: 06-13-2023 End: 06-13-2023 [facility] Start: 06-08-2023 End: 06-08-2023 Emergency department patient visit GIGI Wallace [facility] Start: 05-10-2023 End: 05-11-2023 ambulatory GIGI Wallace [facility] Start: 04-18-2023 End: 04-19-2023 ambulatory Christian Salinas MD Facility:[facility] Start: 04-17-2023 End: 04-17-2023 Emergency department patient visit Christian Salinas MD Facility:[facility] Start: 04-01-2023 ambulatory Opal El [facility] Start: 03-06-2023 End: 03-06-2023 [facility] Start: 02-17-2023 Emergency department patient visit MISBAH GAMBLE [facility] Start: 11-27-2022 End: 11-27-2022 Emergency department patient visit Misbah Gamble DO Facility:[facility] Start: 10-08-2022 End: 10-08-2022 ambulatory GAMA CALLE Facility:[facility] Start: 05-04-2022 End: 05-04-2022 Emergency department patient visit Carl Wilson DO Work Phone: [facility] ED Comment on above: Acute exacerbation o f chronic low back pain (Primary Dx); Degenerative disc disease, lumbar Start: 02-09-2021 End: 02-09-2021 Subsequent hospital visit by physician Jade Hicks APRN - CNArnulfo Work Phone: [facility] Start: 02-09-2021 End: 02-09-2021 Emergency department patient visit Casimiro Campos MD Work Phone: [facility] ED Start: 01-05-2021 End: 01-05-2021 Emergency department patient visit Sr Gamble DO Work Phone: [facility] ED Comment on above: Dental abscess (Prim dennise Dx); Dental caries Procedures Date Procedure Procedure Detail Performing Clinician Start: 02-09-2021 Urnls dip stick/tabl et rgnt auto w/o microscopy Jade Hicks APRN - CNM Work Phone: Plan of Treatment Date Care Activity Detail Author Start: 03-01-2022 Influenza vaccination Flu vaccine (# 1) [facility] Start: 04-01-2021 Influenza vaccination [facility] [email or web address] Work Phone: Start: 2014 Screening for malign ant neoplasm of cervix [facility] Start: 02-29-2012 DTaP/Tdap/Td vaccine (1 - Tdap) DTaP/Tdap/Td vaccine (1 - Tdap) [facility] Start: 2011 Hepatitis C screening Hepatitis C sc reen [facility] Start: 02-29-2008 HIV screening HIV screen [facility] Start: 2005 COVID-19 Vaccine (1) COVID-19 Vaccin e (1) [facility] Work Phone: Start: 2005 Depression Screen Depression Screen [facility] Start: 1999 Pneumococcal 0-64 ye ars Vaccine (1 - PCV) Pneumococcal 0-64 years Vaccine (1 - PCV) [facility] [place] Start: 1999 Pneumococcal 0-64 ye ars Vaccine (1 of 2 - PPSV23) Pneumococcal 0-64 years Vaccine (1 of 2 - PPSV23) [employer] Phone: Start: 1994 Varicella vaccine (1 of 2 - 2-dose childhood series) Varicella vaccine (1 of 2 - 2-dose childhood series) [facility] [place] Start: 1993 COVID-19 Vaccine (#1) COVID-19 Vacci ne (#1) [facility] [place] Start: 1993 Hepatitis C screening Hepatitis C sc reejose [employer] Phone: End: 02-09-2021 nonstress test nonstress test OB Routine One Time for 1 Occurrences starting 02/09/2021 until 02/09/2021 [employer] Phone: Comment on above: One Time for 1 Occur rences starting 02/09/2021 until 02/09/2021 End: 02-09-2021 US BIOPHYS PROFILE W NON STRESS US BIOPHYS PROFILE W NON STRESS Imaging Routine Once for 1 Occurrences starting 02/09/2021 until 02/09/2021 [employer] Phone: Comment on above: Once for 1 Occurrenc es starting 02/09/2021 until 02/09/2021 US BIOPHYS PRO FILE W NON STRESS US BIOPHYS PROFILE W NON STRESS Imaging STAT 02/09/2021 7:06 PM EDT [employer] Phone: End: 02-09-2021 US OB 14 PLUS WEEKS SINGLE OR FIRST GESTATION US OB 14 PLUS WEEKS SINGLE OR FIRST GESTATION Imaging STAT Once for 1 Occurrences starting 02/09/2021 until 02/09/2021 [employer] Phone: Comment on above: Once for 1 Occurrenc es starting 02/09/2021 until 02/09/2021 US OB 14 PLUS WEEKS SINGLE OR FIRST GESTATION US OB 14 PLUS WEEKS SINGLE OR FIRST GESTATION Imaging STAT 02/09/2021 7:06 PM EDT [employer] Phone: Payers Date Payer Category Payer Unknown 2023 Unknown [id number] 2022 Self-pay 2022 Medicaid [id number] 2020 Unknown [employer] [id number] 2020-Present [phone] [address] [place] [address] [id number] 1993 Unknown [id number] 1993 Unknown [id number] [id number] 1993 Unknown [id number] 1993 Unknown [id number] [id number] 1993 Unknown [id number] [id number] 1993 Unknown [id number] [id number] 1993 Unknown [id number] [id number] 1993 Unknown [id number] [id number] 1993 Unknown [id number] [id number] 1993 Unknown [id number] [id number] 1993 Unknown [id number] 2.16.840.1.283880.3.579.2.1286 1993 Unknown [id number] [id number] 1993 Unknown [id number] [id number] 1993 Unknown [id number] [id number] 1993 Unknown [id number] Social History Date Type Detail Facility Start: 01-05-2021 End: 02-09-2021 Tobacco smoking status GAIS Current every day smoker MARQUISE GRAY [employer] Start: 01-05-2021 End: 02-09-2021 Tobacco use and exposure Never used [employer] Start: 1995 Sex Assigned At Not on file [employer] Phone: Start: 04-24-2022 End: 05-05-2022 Exposure to SARS-CoV-2 (event) Not sure [employer] History of tobacco use Cigarette Smoker [employer] Start: 02-09-2021 Cigarettes smoked current (pack per day) - Reported [employer] Phone: Start: 02-09-2021 End: 05-04-2022 Alcohol intake Ex-drinker (finding) [employer] Phone: Start: 02-09-2021 History SDOH Alcohol Frequency 1 [employer] Phone: Start: 07-01-2020 [employer] Work Phone: History of Present illness Narrative 02-09-2021 Tracie Coleman, AFUA - CNM - 02/09/2021 6:50 PM EDT Note Date & Type Note Facility 02-09-2021 History of Present illness Narrative Out Patient Note: Evelyne is a 25 y.o. 33.6 wks gestation. who is going to be a repeat . 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 Normal CLALIE, fetus is jenny breech and very active Pt is schedule to see her provider in the am. Enc to keep this appt. Print out of sono measurements sent with pt to share with her provider. Discharged home in stable condition with no complaints. Pt is cheerful and agreeable with plan of care. documented in this encounter [employer] Phone: Hospital Discharge instructions 02-09-2021 Instructions Note Date & Type Note Facility 02-09-2021 Hospital Discharg e instructions Rhiannon Pedersen, MANOHAR - 02/09/[address] Eliza Day [facility] Dr. Charity Hobbs CN [address] [facility] [address] [facility] [address] Charity Mcgill [facility] [address] [facility] [id number] [phone] Kayla Wright, MSN, MAINTENANCE SUPERVISOR ELECTRICAL, CNM [facility] [address] [facility] [address] [address] [facility] [place] [address] [facility] [id number] Tracie Coleman CNM [address] [place] [address] [place] [address] Jade Hicks CNM [address] [place] [address] [place] [address] [phone] ACTIVITY LIMITATIONS: ( X )Up and about [...] AND DELIVERY . documented in this encounter [employer] Phone: Evaluation note Note Date & Type Note Facility Evaluation note Diagnosis Dental abscess- Primary Periapical abscess without sinus Dental caries Unspecified dental caries documented in this encounter [employer] Phone: Evaluation note Note Date & Type Note Facility Evaluation note Diagnosis Acute exacerbation of chronic low back pain- Primary Degenerative disc disease, lumbar Degeneration of lumbar or lumbosacral intervertebral disc documented in this encounter [employer] Phone: Hospital Discharge instructions Attachments Note Date & Type Note Facility Hospital Discharge instructions The following attachments cannot be sent through Care Everywhere.Tooth Decay (Danish)documented in this encounter [employer] Phone: Hospital Discharge instructions Attachments Note Date & Type Note Facility Hospital Discharge instructions The following attachments cannot be sent through Care Everywhere.Degenerative Disc Disease: General Info (Danish)documented in this encounter [employer] Phone: Summary Purpose Family History No Family [...] Care Teams (unrecognized sec tion and content) Cryptologic Linguist Relationship Specialty Start Date End Date Sr Misbah Gamble DO [address] [place] [address] PCP - General Family Medicine 01/05/21 INFORMATION SOURCE (unrecogn ized section and content) DATE CREATED AUTHOR 10/09/2022 [facility] DATE CREATED AUTHOR AUTHOR'S ORGANIZ ATION 04/02/2023 [facility] DATE CREATED AUTHOR AUTHOR'S ORGANIZ ATION 06/09/2023 [facility] DATE CREATED AUTHOR AUTHOR'S ORGANIZ ATION 08/02/2023 [facility] DATE CREATED AUTHOR AUTHOR'S ORGANIZ ATION 08/06/2023 [facility] DATE CREATED AUTHOR AUTHOR'S ORGANIZ ATION 05/26/2024 [facility] FOR RECORDS PERTAINING TO PATIENTS WHO [...] BE BASED ON THE PRIMARY CLINICAL RECORDS. Contents [facility]. provides no warranty or guarantee of the accuracy or completeness of information in this document.
[2024-05-30 22:17] VITALS: BP 120/86; PULSE 96; O2SAT 96
--- NOTE | 2024-05-30 22:24 | XR_ITS ---
The [address] [address] Patient Name: PETER SHAW MRN: [id number] date: 1995 Sex: F Assigned Patient Location: ER Current Patient Location: ER Accession/Order Number: [id number] Exam Date: 05/30/2024 23:36 Report Date: 05/31/2024 00:40 At the request of: GAMA CALLE Procedure: XR chest 2V EXAM: XR chest 2V HISTORY: short of breath COMPARISON: Chest radiograph 04/17/2023 TECHNIQUE: 2 views of the chest FINDINGS: Lungs symmetrically and adequately inflated. No focal consolidation or evidence of pulmonary edema. No pneumothorax or significant pleural effusion. Unremarkable cardiomediastinal contours. No acute osseous abnormality. Soft tissues radiographically unremarkable. XR/XR chest 2V IMPRESSION: No acute cardiopulmonary findings. Electronically authenticated by: PAIGE CASTAÑEDA Date: 05/31/2024 00:40
--- NOTE | 2024-05-30 22:31 | ED_ITS ---
HPI - Asthma General Chief Complaint: Asthma Stated Complaint: asthma Time Seen by Provider: 05/30/24 22:19 Source: patient Mode of arrival: walk-in Limitations: no limitations History of Present Illness HPI Narrative: patient states she has asthma and feels like she is not getting enough air. Her RA pulse ox is 96% without any obvious respiratory distress. No fever but describes coughing jags Related Data Home Medications ?Medication ?Instructions ?Recorded ?Confirmed gabapentin 800 mg tablet 800 mg PO TID 05/28/24 05/28/24 ibuprofen 800 mg tablet (IBU) 800 mg PO Q8H 05/28/24 05/28/24 albuterol sulfate 90 mcg/actuation 2 inh inhalation Q6H 05/30/24 05/30/24 aerosol inhaler ipratropium 0.5 mg-albuterol 3 mg 3 ml inhalation Q8H 05/30/24 05/30/24 (2.5 mg base)/3 mL nebulization soln lisdexamfetamine 30 mg capsule 30 mg PO DAILY 05/30/24 05/30/24 (Vyvanse) mometasone-formoterol HFA 100 2 puff inhalation Q12H 05/30/24 05/30/24 mcg-5 mcg/actuation aerosol inhaler (Dulera) Previous Rx's ?Medication ?Instructions ?Recorded amoxicillin-potassium clavulanate 1 tab PO BID 10 days #20 tabs 08/03/23 1,000 mg-62.5 mg tablet,ext.rel 12hr (Augmentin XR) ondansetron 4 mg disintegrating 4 mg PO Q4H PRN nausea and 08/03/23 tablet vomiting 3 days #6 tabs Allergies Allergy/AdvReac Type Severity Reaction Status Date / Time No Known Drug Allergies Allergy Verified 05/28/24 20:17 Review of Systems ROS Status of ROS 10 or more systems reviewed and unremark able except as noted in history and below PFSH PFSH Social History Smoking status: Current every day smoker Little interest or pleasure in doing things: not at all Feeling down, depressed, or hopeless: not at all Exam Constitutional Vital Signs, click to edit/add: Last Vital Signs Temp 98.1 F 05/30/24 21:07 Pulse 96 H 05/30/24 22:17 Resp 18 05/30/24 22:17 BP 120/86 05/30/24 22:17 Pulse Ox 96 05/30/24 22:17 O2 Del Method Room Air 05/30/24 21:07 Common normals: no apparent distress, average body habitus, oriented x3, no limitations, healthy appearing, alert and well nourished [facility] Common normals: normocephalic and head/scalp atraumatic Respiratory Common normals: normal respiratory effort, no retractions, no use of accessory muscles and clear to auscultation bilaterally Cardio Common normals: regular rate, regular rhythm, S1 normal heart sound and S2 normal heart sound GI Common normals: Normal to inspection, nondistended, normoactive bowel sounds present and soft to palpation Extremity Common normals: normal to inspection and full ROM Neuro Common normals: oriented x3, CN's II-XII intact bilaterally, moves all extremities and no focal motor deficits Psych Appearance: grossly normal Course Vital Signs Vital signs: Vital Signs Temperature 98.1 F 05/30/24 21:07 Pulse Rate 102 H 05/30/24 21:07 Respiratory Rate 19 05/30/24 21:07 Blood Pressure 147/98 H 05/30/24 21:07 Pulse Oximetry 96 05/30/24 21:07 Oxygen Delivery Method Room Air 05/30/24 21:07 Temperature 98.1 F 05/30/24 21:07 Pulse Rate 96 H 05/30/24 22:17 Respiratory Rate 18 05/30/24 22:17 Blood Pressure 120/86 05/30/24 22:17 Pulse Oximetry 96 05/30/24 22:17 Oxygen Delivery Method Room Air 05/30/24 21:07 MDM - Asthma MDM Narrative Medical decision making narrative: patient presents complaining about her asthma and coughing jags. No coughing jags here or any sign of respiratory distress. Treatment based on her complaint she was given duoneb treatment and prednisone. cxray clear. Dischrarged home with prednisone and albuterol inhaler prn. ADvised to continue Dulera as prescribed by her PCP and follow up with her doctor for a recheck in the next couple of days Discharge Plan Discharge Chief Complaint: Asthma Clinical Impression: Asthma with acute exacerbation Patient Disposition: Home, Self-Care Prescriptions / Home Meds: No Action ipratropium-albuterol 0.5 mg-3 mg(2.5 mg base)/3 mL solution for nebulization 3 ml INHALATION Q8H albuterol sulfate 90 mcg/actuation HFA aerosol inhaler 2 inh INHALATION Q6H Dulera 100-5 mcg/actuation HFA aerosol inhaler 2 puff INHALATION Q12H lisdexamfetamine [Vyvanse] 30 mg capsule 30 mg PO DAILY ondansetron 4 mg tablet,disintegrating 4 mg PO Q4H PRN (Reason: nausea and vomiting) 3 Days Qty: 6 0RF amoxicillin-pot clavulanate [Augmentin XR] 1,000-62.5 mg tablet extended release 12 hr 1 tab PO BID 10 Days Qty: 20 0RF ibuprofen [IBU] 800 mg tablet 800 mg PO Q8H gabapentin 800 mg tablet 800 mg PO TID Print Language: Mongolian Instructions: Asthma (ED) Additional Instructions: follow up with your doctor in a couple of days for recheck Referrals: Physician,Non-Staff, MD [Primary Care Provider] - 1 week
[2024-05-30] MEDS: PREDNISONE 20 MG TABLET 60 MG PO (23:08)
[2024-05-30 23:18] VITALS: PULSE 107; O2SAT 96
[2024-05-30] MEDS: IPRATROPIUM/ALBUTEROL SULFATE 3 ML AMPUL.NEB IH (23:18)
[2024-05-30 23:39] VITALS: BP 120/76; PULSE 70; O2SAT 96
== END 2024-05-30 23:42 | disposition home or self-care (01) ==
PROVIDERS: Emergency Provider Internal Medicine
DX: J45.901 Unspecified asthma with (acute) exacerbation (principal); F17.200 Nicotine dependence, unspecified, uncomplicated
CPT/HCPCS: 71046; 84703; 94640; 99284; J7512